=== PATIENT | male | born 1960 | race Caucasian/White ===

== ENCOUNTER 2017-07-19 02:38 | Inpatient (IN) | payer MEDICAID ==
[~2017-07-19] VITALS: Ht 190.5 cm; Wt 96.9 kg
[~2017-07-19 02:38] MED LIST: ATEN25TA PO
[2017-07-19] MEDS ORDERED: ondansetron/PF 4mg/2ml inj IV ONE (02:55)
[2017-07-19] MEDS ORDERED: normal saline 1000ML IV soln IVB ONE (02:55)
[2017-07-19] MEDS: diatr meglu/diatrizoate 30ml oral sol.-(3 dose) bottle PO SCH ×3 (03:03→04:39)
[2017-07-19 03:09] LABS: BASOPHILS % (AUTO) 0.7 % (0-1); EOSINOPHILS # (AUTO) 0.3 X10'3 (0-0.9); EOSINOPHILS % (AUTO) 7.1 % (0-6); HEMATOCRIT 26.5 % (42.0-52.0); HEMOGLOBIN 8.8 g/dl (14.0-17.9); LYMPHOCYTES # (AUTO) 0.8 X10'3 (1.1-4.8); LYMPHOCYTES % (AUTO) 17.4 % (21-51); MEAN CORPUSCULAR HEMOGLOBIN 30.7 PG (27.0-31.0); MEAN CORPUSCULAR HGB CONC 33.3 % (33.0-36.5); MEAN CORPUSCULAR VOLUME 92.3 FL (78-98); MEAN PLATELET VOLUME 9.1 FL (7.4-10.4); MONOCYTES # (AUTO) 0.5 X10'3 (0-0.9); MONOCYTES % (AUTO) 11.8 % (2-12); NEUTROPHILS # (AUTO) 2.8 X10'3 (1.8-7.7); PLATELET COUNT 61 X10'3 (140-440); RED BLOOD COUNT 2.87 X10'6 (4.70-6.10); RED CELL DISTRIBUTION WIDTH 21.2 % (11.5-14.5); WHITE BLOOD COUNT 4.4 X10'3 (4.5-11.0)
[2017-07-19 03:20] LABS: CLARITY,URINE CLEAR (Clear); COLOR,URINE YELLOW (Yellow); GLUCOSE, URINE NEGATIVE (Neg); KETONES,URINE NEGATIVE (Neg); LEUKOCYTE ESTERASE ,URINE NEGATIVE (Neg); NITRITES, URINE NEGATIVE (Neg); OCCULT BLOOD,URINE NEGATIVE (Neg); PROTEIN,URINE NEGATIVE (Neg); UROBILINOGEN,URINE 0.2 E.U/dL (0.2-1.0)
[2017-07-19 03:24] LABS: UA COLLECTION TYPE VOIDED
[2017-07-19 03:25] LABS: ALANINE AMINOTRANSFERASE 24 U/L (12-78); ALBUMIN 2.9 G/DL (3.4-5.0); ALBUMIN/GLOBULIN RATIO 0.6 (1.1-1.5); ALKALINE PHOSPHATASE 124 IU/L (46-116); ANION GAP 13 (8-16); ASPARTATE AMINO TRANSFERASE 36 U/L (10-37); BILIRUBIN,TOTAL 1.7 MG/DL (0.1-1.0); BLOOD UREA NITROGEN 40 MG/DL (7-18); BUN/CREATININE RATIO 8.1 (5.4-32.0); CALCIUM 8.8 MG/DL (8.5-10.1); CHLORIDE 107 MMOL/L (99-107); CREATININE 4.96 MG/DL (0.60-1.10); GLUCOSE 107 MG/DL (70-104); LIPASE 1250 U/L (73-393); POTASSIUM 3.8 MMOL/L (3.5-5.1); SODIUM 138 MMOL/L (135-145); eGFR 12 ML/MIN
[2017-07-19 04:43] LABS: HEMOGLOBIN A1C 4.9 % (4.5-6.2)
[2017-07-19] MEDS ORDERED: THIA100T73 PO (05:40)
[2017-07-19] MEDS ORDERED: OMEP40CA37 PO (05:40)
[2017-07-19] MEDS ORDERED: FOLI1TAB16 PO (05:40)
[2017-07-19] MEDS ORDERED: LORA2TAB PO (05:40)
[2017-07-19] MEDS ORDERED: MAGN400T6 PO (05:40)
[2017-07-19] MEDS ORDERED: GABA-532 PO (05:40)
[2017-07-19] MEDS ORDERED: ATEN25TA2 PO (05:40)
[2017-07-19] MEDS ORDERED: PROP20TA6 PO (05:40)
[2017-07-19] MEDS ORDERED: ondansetron/PF 4mg/2ml inj IV PRN (06:05)
[2017-07-19] MEDS ORDERED: mag hydrox/Alum hydrox/simeth 30ml oral suspension PO PRN (06:05)
[2017-07-19] MEDS ORDERED: acetaminophen 325mg tablet PO PRN ×2 (06:05)
[2017-07-19] MEDS ORDERED: magnesium hydroxide 30ml (MOM) UD suspension PO PRN (06:05)
[2017-07-19] MEDS ORDERED: LORazepam 2 mg/ml vial IV ONE (07:15)
[2017-07-19] MEDS ORDERED: LIDOcaine 2% 10ml TOPICAL JELLY (Urojet) MM ONE (07:15)
[2017-07-19] MEDS: normal saline 1000ml 1,000 ML IV SCH ×2 (07:35→20:21)
[2017-07-19] MEDS: multivitamins, therapeutics tablet PO SCH (07:48)
[2017-07-19] MEDS: thiamine 100mg tablet PO SCH (07:49)
[2017-07-19] MEDS: magnesium oxide 400mg tablet PO SCH (07:49)
[2017-07-19] MEDS: folic acid 1mg tablet PO SCH (07:49)
[2017-07-19] MEDS: propranolol 40mg tablet PO SCH ×2 (10:58→13:00)
[2017-07-19 11:15] LABS: OCCULT BLOOD STOOL NEGATIVE (Neg)
[2017-07-19 18:30] VITALS: BP 131/82
[2017-07-19] MEDS: propranolol 10mg tablet PO SCH (20:48)
[2017-07-19 20:52] LABS: BASOPHILS # (AUTO) 0.1 X10'3 (0-0.2); EOSINOPHILS # (AUTO) 0.6 X10'3 (0-0.9); EOSINOPHILS % (AUTO) 9.2 % (0-6); HEMATOCRIT 31.8 % (42.0-52.0); HEMOGLOBIN 10.8 g/dl (14.0-17.9); LYMPHOCYTES # (AUTO) 0.7 X10'3 (1.1-4.8); LYMPHOCYTES % (AUTO) 10.5 % (21-51); MEAN CORPUSCULAR HGB CONC 33.8 % (33.0-36.5); MEAN CORPUSCULAR VOLUME 91.8 FL (78-98); MEAN PLATELET VOLUME 9.4 FL (7.4-10.4); MONOCYTES # (AUTO) 0.8 X10'3 (0-0.9); MONOCYTES % (AUTO) 12.6 % (2-12); NEUTROPHILS # (AUTO) 4.2 X10'3 (1.8-7.7); NEUTROPHILS % (AUTO) 65.7 % (42-75); PLATELET COUNT 87 X10'3 (140-440); RED BLOOD COUNT 3.47 X10'6 (4.70-6.10); RED CELL DISTRIBUTION WIDTH 21.1 % (11.5-14.5); WHITE BLOOD COUNT 6.4 X10'3 (4.5-11.0)
[2017-07-19 21:02] LABS: INR 1.2 INR; PROTHROMBIN TIME 12.6 SECONDS (9.0-12.0)
[2017-07-19 21:06] LABS: ALANINE AMINOTRANSFERASE 18 U/L (12-78); ALBUMIN 2.8 G/DL (3.4-5.0); ALBUMIN/GLOBULIN RATIO 0.6 (1.1-1.5); ALKALINE PHOSPHATASE 121 IU/L (46-116); ANION GAP 11 (8-16); ASPARTATE AMINO TRANSFERASE 33 U/L (10-37); BILIRUBIN,TOTAL 2.2 MG/DL (0.1-1.0); BLOOD UREA NITROGEN 39 MG/DL (7-18); BUN/CREATININE RATIO 8.7 (5.4-32.0); CALCIUM 8.9 MG/DL (8.5-10.1); CHLORIDE 108 MMOL/L (99-107); CREATININE 4.47 MG/DL (0.60-1.10); GLUCOSE 137 MG/DL (70-104); POTASSIUM 3.8 MMOL/L (3.5-5.1); SODIUM 139 MMOL/L (135-145); TOTAL CARBON DIOXIDE 20.1 MMOL/L (24-32); TOTAL PROTEIN 7.8 G/DL (6.4-8.2); eGFR 14 ML/MIN
[2017-07-19] MEDS: LORazepam 1 MG tablet PO PRN (22:21)
[2017-07-19 22:25] VITALS: BP 114/70
[2017-07-20 05:18] LABS: BASOPHILS # (AUTO) 0.1 X10'3 (0-0.2); BASOPHILS % (AUTO) 1.1 % (0-1); EOSINOPHILS # (AUTO) 0.4 X10'3 (0-0.9); EOSINOPHILS % (AUTO) 7.6 % (0-6); HEMATOCRIT 28.1 % (42.0-52.0); HEMOGLOBIN 9.4 g/dl (14.0-17.9); LYMPHOCYTES # (AUTO) 0.8 X10'3 (1.1-4.8); MEAN CORPUSCULAR HEMOGLOBIN 30.9 PG (27.0-31.0); MEAN CORPUSCULAR HGB CONC 33.6 % (33.0-36.5); MEAN CORPUSCULAR VOLUME 91.9 FL (78-98); MEAN PLATELET VOLUME 9.1 FL (7.4-10.4); MONOCYTES # (AUTO) 0.7 X10'3 (0-0.9); MONOCYTES % (AUTO) 13.1 % (2-12); NEUTROPHILS # (AUTO) 3.6 X10'3 (1.8-7.7); NEUTROPHILS % (AUTO) 64.2 % (42-75); PLATELET COUNT 69 X10'3 (140-440); RED BLOOD COUNT 3.06 X10'6 (4.70-6.10); RED CELL DISTRIBUTION WIDTH 21.2 % (11.5-14.5); WHITE BLOOD COUNT 5.6 X10'3 (4.5-11.0)
[2017-07-20 06:00] LABS: ALBUMIN 2.3 G/DL (3.4-5.0); ANION GAP 10 (8-16); BLOOD UREA NITROGEN 38 MG/DL (7-18); BUN/CREATININE RATIO 8.9 (5.4-32.0); CALCIUM 7.9 MG/DL (8.5-10.1); CHLORIDE 110 MMOL/L (99-107); CREATININE 4.26 MG/DL (0.60-1.10); GLUCOSE 113 MG/DL (70-104); LIPASE 713 U/L (73-393); POTASSIUM 4.1 MMOL/L (3.5-5.1); SODIUM 140 MMOL/L (135-145); TOTAL CARBON DIOXIDE 19.7 MMOL/L (24-32); eGFR 14 ML/MIN
[2017-07-20 07:26] VITALS: BP 137/74
[2017-07-20] MEDS: multivitamins, therapeutics tablet PO SCH (07:58)
[2017-07-20] MEDS: propranolol 10mg tablet PO SCH ×3 (07:58→20:35)
[2017-07-20] MEDS: magnesium oxide 400mg tablet PO SCH (07:58)
[2017-07-20] MEDS: thiamine 100mg tablet PO SCH (07:58)
[2017-07-20] MEDS: folic acid 1mg tablet PO SCH (07:59)
[2017-07-20] MEDS: normal saline 1000ml 1,000 ML IV SCH ×4 (09:15→21:43)
[2017-07-20 11:30] VITALS: BP 125/56
[2017-07-20 16:12] LABS: BASOPHILS % (AUTO) 0.9 % (0-1); EOSINOPHILS # (AUTO) 0.4 X10'3 (0-0.9); EOSINOPHILS % (AUTO) 7.5 % (0-6); HEMOGLOBIN 9.5 g/dl (14.0-17.9); LYMPHOCYTES # (AUTO) 0.8 X10'3 (1.1-4.8); LYMPHOCYTES % (AUTO) 15.4 % (21-51); MEAN CORPUSCULAR HEMOGLOBIN 30.8 PG (27.0-31.0); MEAN CORPUSCULAR HGB CONC 33.9 % (33.0-36.5); MEAN PLATELET VOLUME 9.6 FL (7.4-10.4); MONOCYTES # (AUTO) 0.9 X10'3 (0-0.9); MONOCYTES % (AUTO) 17.5 % (2-12); NEUTROPHILS # (AUTO) 3.1 X10'3 (1.8-7.7); NEUTROPHILS % (AUTO) 58.7 % (42-75); PLATELET COUNT 63 X10'3 (140-440); RED BLOOD COUNT 3.08 X10'6 (4.70-6.10); RED CELL DISTRIBUTION WIDTH 20.2 % (11.5-14.5); WHITE BLOOD COUNT 5.3 X10'3 (4.5-11.0)
[2017-07-20 16:37] LABS: ALANINE AMINOTRANSFERASE 16 U/L (12-78); ALBUMIN 2.3 G/DL (3.4-5.0); ALBUMIN/GLOBULIN RATIO 0.5 (1.1-1.5); ALKALINE PHOSPHATASE 105 IU/L (46-116); ANION GAP 12 (8-16); ASPARTATE AMINO TRANSFERASE 28 U/L (10-37); BILIRUBIN,TOTAL 1.3 MG/DL (0.1-1.0); BLOOD UREA NITROGEN 36 MG/DL (7-18); BUN/CREATININE RATIO 9.1 (5.4-32.0); CALCIUM 7.7 MG/DL (8.5-10.1); CHLORIDE 107 MMOL/L (99-107); CREATININE 3.97 MG/DL (0.60-1.10); GLUCOSE 124 MG/DL (70-104); POTASSIUM 3.7 MMOL/L (3.5-5.1); SODIUM 139 MMOL/L (135-145); TOTAL PROTEIN 6.6 G/DL (6.4-8.2); eGFR 16 ML/MIN
[2017-07-20 19:20] VITALS: BP 135/83
[2017-07-20] MEDS: tamsulosin 0.4mg capsule PO SCH (20:34)
[2017-07-20] MEDS: LORazepam 1 MG tablet PO PRN (20:35)
[2017-07-21] VITALS (16 sets, daily range): BP systolic 108–148; BP diastolic 53–95
[2017-07-21] MEDS: normal saline 1000ml 1,000 ML IV SCH ×3 (04:22→19:00)
[2017-07-21 06:19] LABS: BASOPHILS # (AUTO) 0.1 X10'3 (0-0.2); BASOPHILS % (AUTO) 1.2 % (0-1); EOSINOPHILS # (AUTO) 0.6 X10'3 (0-0.9); EOSINOPHILS % (AUTO) 8.6 % (0-6); HEMATOCRIT 26.6 % (42.0-52.0); LYMPHOCYTES # (AUTO) 1.1 X10'3 (1.1-4.8); LYMPHOCYTES % (AUTO) 17.5 % (21-51); MEAN CORPUSCULAR HEMOGLOBIN 30.7 PG (27.0-31.0); MEAN CORPUSCULAR HGB CONC 33.8 % (33.0-36.5); MEAN CORPUSCULAR VOLUME 91.1 FL (78-98); MEAN PLATELET VOLUME 9.8 FL (7.4-10.4); NEUTROPHILS # (AUTO) 3.7 X10'3 (1.8-7.7); NEUTROPHILS % (AUTO) 57.7 % (42-75); PLATELET COUNT 68 X10'3 (140-440); RED BLOOD COUNT 2.92 X10'6 (4.70-6.10); RED CELL DISTRIBUTION WIDTH 21.1 % (11.5-14.5); WHITE BLOOD COUNT 6.4 X10'3 (4.5-11.0)
[2017-07-21 06:21] LABS: ALBUMIN 2.3 G/DL (3.4-5.0); ANION GAP 12 (8-16); BLOOD UREA NITROGEN 34 MG/DL (7-18); BUN/CREATININE RATIO 10.1 (5.4-32.0); CALCIUM 7.4 MG/DL (8.5-10.1); CHLORIDE 110 MMOL/L (99-107); CREATININE 3.37 MG/DL (0.60-1.10); GLUCOSE 117 MG/DL (70-104); POTASSIUM 3.5 MMOL/L (3.5-5.1); SODIUM 140 MMOL/L (135-145); TOTAL CARBON DIOXIDE 17.6 MMOL/L (24-32); eGFR 19 ML/MIN
[2017-07-21] MEDS: propranolol 10mg tablet PO SCH ×3 (08:00→20:29)
[2017-07-21] MEDS: multivitamins, therapeutics tablet PO SCH (08:00)
[2017-07-21] MEDS: folic acid 1mg tablet PO SCH (08:00)
[2017-07-21] MEDS: thiamine 100mg tablet PO SCH (08:00)
[2017-07-21] MEDS: magnesium oxide 400mg tablet PO SCH (08:00)
[2017-07-21] MEDS ORDERED: neomy sulf/bacitrac zn/polymixin b oint 14.2 gm tube TP ONE (09:54)
[2017-07-21] MEDS ORDERED: neomy sulf/polymyxin B sulf. GU irrigation 1ml amp IR ONE (09:56)
[2017-07-21] MEDS ORDERED: levoFLOXACIN-Levaquin 500mg/D5 100 ML IV ONE (10:00)
[2017-07-21] MEDS ORDERED: fentaNYL/PF 50MCG/1 ML 2ML syringe ONE ×2 (10:16→10:39)
[2017-07-21] MEDS ORDERED: neostigmine methylsulfate 1 MG/ML 10ml vial ONE (10:49)
[2017-07-21] MEDS ORDERED: glycopyrrolate 0.2mg/ml inj ONE (10:49)
[2017-07-21] MEDS ORDERED: propofol inj 20 ML IV ONE (10:49)
[2017-07-21] MEDS ORDERED: rocuronium 10mg/ml inj IV ONE (10:49)
[2017-07-21] MEDS ORDERED: dexamethasone sod phosphate 4mg/ml inj. ONE (10:49)
[2017-07-21] MEDS ORDERED: succinylcholine 20mg/ml inj IV ONE (10:49)
[2017-07-21] MEDS ORDERED: ondansetron/PF 4mg/2ml inj ONE (10:49)
[2017-07-21] MEDS ORDERED: LIDOcaine 2% (20mg/ml) 5ml vial ONE (10:49)
[2017-07-21] MEDS ORDERED: ringers solution, lacted 1,000 ML IV SCH (11:06)
[2017-07-21] MEDS ORDERED: meperidine/PF 25mg/ml syringe IV PRN ×3 (11:10)
[2017-07-21] MEDS ORDERED: HYDROcodone/acetaminophen 5mg/325mg tablet PO PRN ×2 (11:10)
[2017-07-21] MEDS ORDERED: proCHLORperazine 10 MG/2 ml inj IV PRN (11:10)
[2017-07-21] MEDS ORDERED: ondansetron/PF 4mg/2ml inj IV PRN (11:10)
[2017-07-21] MEDS ORDERED: oxybutynin 5mg tablet PO PRN (11:10)
[2017-07-21] MEDS: tamsulosin 0.4mg capsule PO SCH (20:29)
[2017-07-21] MEDS: docusate sod 100mg capsule PO SCH (20:29)
[2017-07-22] MEDS: normal saline 1000ml 1,000 ML IV SCH ×3 (01:48→12:07)
[2017-07-22 04:00] VITALS: BP 128/71
[2017-07-22 05:12] LABS: BASOPHILS % (AUTO) 0.2 % (0-1); EOSINOPHILS % (AUTO) 0.5 % (0-6); HEMATOCRIT 24.8 % (42.0-52.0); HEMOGLOBIN 8.3 g/dl (14.0-17.9); LYMPHOCYTES # (AUTO) 0.4 X10'3 (1.1-4.8); MEAN CORPUSCULAR HEMOGLOBIN 30.8 PG (27.0-31.0); MEAN CORPUSCULAR HGB CONC 33.7 % (33.0-36.5); MEAN CORPUSCULAR VOLUME 91.3 FL (78-98); MEAN PLATELET VOLUME 9.8 FL (7.4-10.4); MONOCYTES # (AUTO) 0.4 X10'3 (0-0.9); MONOCYTES % (AUTO) 10.7 % (2-12); NEUTROPHILS # (AUTO) 2.7 X10'3 (1.8-7.7); NEUTROPHILS % (AUTO) 77.6 % (42-75); PLATELET COUNT 52 X10'3 (140-440); RED BLOOD COUNT 2.71 X10'6 (4.70-6.10); RED CELL DISTRIBUTION WIDTH 20.3 % (11.5-14.5); WHITE BLOOD COUNT 3.5 X10'3 (4.5-11.0)
[2017-07-22 05:50] LABS: ALBUMIN 2.2 G/DL (3.4-5.0); ANION GAP 12 (8-16); BLOOD UREA NITROGEN 32 MG/DL (7-18); BUN/CREATININE RATIO 11.2 (5.4-32.0); CALCIUM 7.4 MG/DL (8.5-10.1); CHLORIDE 108 MMOL/L (99-107); CREATININE 2.85 MG/DL (0.60-1.10); GLUCOSE 153 MG/DL (70-104); POTASSIUM 3.7 MMOL/L (3.5-5.1); SODIUM 140 MMOL/L (135-145); TOTAL CARBON DIOXIDE 20.5 MMOL/L (24-32); eGFR 23 ML/MIN
[2017-07-22 07:05] VITALS: BP 118/82
[2017-07-22] MEDS: magnesium oxide 400mg tablet PO SCH (07:11)
[2017-07-22] MEDS: docusate sod 100mg capsule PO SCH (07:11)
[2017-07-22] MEDS: thiamine 100mg tablet PO SCH (07:11)
[2017-07-22] MEDS: propranolol 10mg tablet PO SCH ×2 (07:11→13:00)
[2017-07-22] MEDS: multivitamins, therapeutics tablet PO SCH (07:11)
[2017-07-22] MEDS: folic acid 1mg tablet PO SCH (07:11)
[2017-07-22 11:30] VITALS: BP 128/77
[2017-07-22] MEDS ORDERED: TAMS0.4C32 PO (12:54)
== END 2017-07-22 15:05 | disposition home health service (06) | DRG 482 ==
LOC: ER 02:39 → ED HOLD 06:03 → MED 3N 18:30
PROVIDERS: ADMIT Internal Medicine; ATTEND Emergency Medicine
PROC: 0VB08ZZ Excision of Prostate, Via Natural or Artificial Opening Endoscopic (ICD-10-PCS; 2017-07-21)
PROC: 0TJB8ZZ Inspection of Bladder, Via Natural or Artificial Opening Endoscopic (ICD-10-PCS; principal; 2017-07-21 10:12)
DX: N40.1 Benign prostatic hyperplasia with lower urinary tract symptoms (principal); N17.9 Acute kidney failure, unspecified; D61.818 Other pancytopenia; C22.0 Liver cell carcinoma; K42.1 Umbilical hernia with gangrene; I85.00 Esophageal varices without bleeding; N13.30 Unspecified hydronephrosis; N13.8 Other obstructive and reflux uropathy; N40.0 Benign prostatic hyperplasia without lower urinary tract symptoms; E11.40 Type 2 diabetes mellitus with diabetic neuropathy, unspecified; N32.89 Other specified disorders of bladder; D64.9 Anemia, unspecified; R74.0 Nonspecific elevation of levels of transaminase and lactic acid dehydrogenase [LDH]; F10.10 Alcohol abuse, uncomplicated; Z72.89 Other problems related to lifestyle; Z59.0 Homelessness; K43.9 Ventral hernia without obstruction or gangrene; F02.80 Dementia in other diseases classified elsewhere, unspecified severity, without behavioral disturbance, psychotic disturbance, mood disturbance, and anxiety; F41.9 Anxiety disorder, unspecified; K42.0 Umbilical hernia with obstruction, without gangrene; K70.31 Alcoholic cirrhosis of liver with ascites; K76.6 Portal hypertension; K80.20 Calculus of gallbladder without cholecystitis without obstruction; N35.9 Urethral stricture, unspecified; R32 Unspecified urinary incontinence; Z79.4 Long term (current) use of insulin
CPT/HCPCS: 36415; 74176; 80048; 80053; 81003; 82272; 83036; 83605; 83690; 85025; 85610; 87070; 93005; 96361; 96374; 99285; A4315; A4346; A4402; A6255; A7000; J0330; J1100; J1956; J2001; J2060; J2175; J2270; J2405; J2704; J2710; J3010; J3490; J7030; J7120; Q9963

== ENCOUNTER 2017-08-13 22:41 | Inpatient (IN) | payer MEDICAID ==
[~2017-08-13] VITALS: Ht 190.5 cm; Wt 91.3 kg
[~2017-08-13 22:41] MED LIST changes: -ATEN25TA PO; +FOLI1TAB16 PO; +GABA-532 PO; +LORA2TAB PO; +MAGN400T6 PO; +OMEP40CA37 PO; +PROP20TA6 PO; +TAMS0.4C32 PO; +THIA100T73 PO
[2017-08-13] MEDS ORDERED: tranexamic acid inj. 1,000 MG in normal saline 100ml IV soln 90 ML IV ONE (23:05)
[2017-08-13] MEDS ORDERED: octreotide inj. 1,250 MCG in normal saline 250ml IV soln 250 ML IV ONE (23:10)
[2017-08-13] MEDS ORDERED: phytonadione inj. 5 MG in normal saline 100ml IV soln 100 ML IV ONE (23:10)
[2017-08-13 23:13] LABS: BASOPHILS % (AUTO) 0.3 % (0-1); EOSINOPHILS % (AUTO) 0.7 % (0-6); HEMATOCRIT 21.2 % (42.0-52.0); HEMOGLOBIN 7.4 g/dl (14.0-17.9); LYMPHOCYTES # (AUTO) 0.3 X10'3 (1.1-4.8); LYMPHOCYTES % (AUTO) 4.7 % (21-51); MEAN CORPUSCULAR HEMOGLOBIN 31.3 PG (27.0-31.0); MEAN CORPUSCULAR HGB CONC 34.9 % (33.0-36.5); MEAN CORPUSCULAR VOLUME 89.7 FL (78-98); MEAN PLATELET VOLUME 8.4 FL (7.4-10.4); MONOCYTES # (AUTO) 0.9 X10'3 (0-0.9); NEUTROPHILS # (AUTO) 4.5 X10'3 (1.8-7.7); NEUTROPHILS % (AUTO) 78.3 % (42-75); RED BLOOD COUNT 2.36 X10'6 (4.70-6.10); RED CELL DISTRIBUTION WIDTH 15.3 % (11.5-14.5); WHITE BLOOD COUNT 5.7 X10'3 (4.5-11.0)
[2017-08-13 23:21] LABS: INR 1.3 INR; PARTIAL THROMBOPLASTIN TIME 34 SECONDS (22-32)
[2017-08-13 23:24] LABS: PLATELET COUNT 27 X10'3 (140-440)
[2017-08-13 23:25] LABS: ALANINE AMINOTRANSFERASE 17 U/L (12-78); ALBUMIN 2.1 G/DL (3.4-5.0); ALBUMIN/GLOBULIN RATIO 0.4 (1.1-1.5); ALKALINE PHOSPHATASE 162 IU/L (46-116); ANION GAP 9 (8-16); ASPARTATE AMINO TRANSFERASE 36 U/L (10-37); BILIRUBIN,TOTAL 3.3 MG/DL (0.1-1.0); BLOOD UREA NITROGEN 25 MG/DL (7-18); BUN/CREATININE RATIO 13.9 (5.4-32.0); CALCIUM 7.9 MG/DL (8.5-10.1); CHLORIDE 98 MMOL/L (99-107); ETHANOL 0.073 GM/DL (0.0-0.010); GLUCOSE 131 MG/DL (70-104); LIPASE 231 U/L (73-393); MAGNESIUM 1.3 MG/DL (1.5-2.4); POTASSIUM 5.4 MMOL/L (3.5-5.1); SODIUM 128 MMOL/L (135-145); TOTAL CARBON DIOXIDE 21.1 MMOL/L (24-32); TOTAL PROTEIN 7.1 G/DL (6.4-8.2); eGFR 39 ML/MIN
[2017-08-13 23:30] LABS: LACTIC SEPSIS 2.3 MMOL/L (0.4-2.0)
[2017-08-13] MEDS ORDERED: octreotide 100mcg/1 ml ampule IV ONE (23:45)
[2017-08-14] VITALS (26 sets, daily range): BP systolic 117–158; BP diastolic 61–90
[2017-08-14] MEDS ORDERED: metoclopramide 5 mg/ml inj IV PRN (00:05)
[2017-08-14] MEDS ORDERED: diphenhydrAMINE 25mg capsule PO PRN (00:05)
[2017-08-14] MEDS ORDERED: HYDROmorphone 1 mg/ml syringe IV PRN ×2 (00:05)
[2017-08-14] MEDS ORDERED: magnesium hydroxide 30ml (MOM) UD suspension PO PRN (00:05)
[2017-08-14] MEDS ORDERED: mag hydrox/Alum hydrox/simeth 30ml oral suspension PO PRN (00:05)
[2017-08-14] MEDS ORDERED: diphenhydrAMINE 50 mg/ml inj IV PRN (00:05)
[2017-08-14] MEDS ORDERED: acetaminophen 325mg tablet PO PRN ×2 (00:05)
[2017-08-14] MEDS ORDERED: HYDROcodone/acetaminophen 5mg/325mg tablet PO PRN (00:05)
[2017-08-14] MEDS ORDERED: ondansetron/PF 4mg/2ml inj IV PRN (00:05)
[2017-08-14] MEDS ORDERED: morphine 2 MG/ML inj. syringe IV PRN ×2 (00:05)
[2017-08-14] MEDS ORDERED: bisacodyl 10mg suppository rectal RC PRN (00:05)
[2017-08-14] MEDS ORDERED: acetaminophen 650mg rectal suppository RC PRN (00:05)
[2017-08-14] MEDS ORDERED: HYDROcodone/acetaminophen 10/325mg tab PO PRN (00:05)
[2017-08-14] MEDS ORDERED: tranexamic acid 100mg/ml inj. ONE (00:19)
[2017-08-14] MEDS ORDERED: octreotide 200mcg/ml 5ml vial ONE (00:19)
[2017-08-14] MEDS ORDERED: phytonadione 10 MG/1 ML amp ONE (00:20)
[2017-08-14] MEDS ORDERED: LORazepam 1 MG tablet PO PRN (00:20)
[2017-08-14 00:46] LABS: PHOSPHORUS 2.3 MG/DL (2.3-4.5)
[2017-08-14] MEDS: pantoprazole 40MG/NS 100ML BAG 100 ML IV SCH ×5 (02:08→22:12)
[2017-08-14] MEDS: normal saline 1000ml 1,000 ML IV SCH (02:11)
[2017-08-14 02:54] LABS: HEMOGLOBIN 7.1 g/dl (14.0-17.9); MEAN CORPUSCULAR HEMOGLOBIN 31.8 PG (27.0-31.0); MEAN CORPUSCULAR HGB CONC 35.4 % (33.0-36.5); MEAN CORPUSCULAR VOLUME 89.9 FL (78-98); MEAN PLATELET VOLUME 8.9 FL (7.4-10.4); RED BLOOD COUNT 2.23 X10'6 (4.70-6.10); RED CELL DISTRIBUTION WIDTH 15.3 % (11.5-14.5); WHITE BLOOD COUNT 4.9 X10'3 (4.5-11.0)
[2017-08-14 03:12] LABS: PLATELET COUNT 21 X10'3 (140-440)
[2017-08-14] MEDS ORDERED: sodium polystyrene sulfonate 15gm/60ml oral suspension PO ONE (09:40)
[2017-08-14] MEDS ORDERED: diphenhydrAMINE 25mg capsule PO ONE (10:05)
[2017-08-14] MEDS ORDERED: normal saline 1000ml 1,000 ML IV SCH (11:29)
[2017-08-14] MEDS ORDERED: MIDAZolam 1mg/ml 10ml vial IV PRN (11:30)
[2017-08-14] MEDS ORDERED: fentaNYL/PF 50MCG/1 ML 2ML syringe IV PRN (11:30)
[2017-08-14] MEDS ORDERED: LIDOcaine Viscous 15ml cup ONE (12:05)
[2017-08-14] MEDS ORDERED: fentaNYL/PF 50MCG/1 ML 2ML syringe ONE (12:05)
[2017-08-14] MEDS ORDERED: MIDAZolam 1mg/ml 10ml vial ONE (12:05)
[2017-08-14] MEDS ORDERED: ondansetron/PF 4mg/2ml inj ONE (12:11)
[2017-08-14] MEDS: propranolol 40mg tablet PO SCH ×3 (13:00→22:09)
[2017-08-14] MEDS: gabapentin 300mg capsule PO SCH ×3 (13:00→22:10)
[2017-08-14] MEDS: CefTRIAXone/D5W-Rocephin 1gm 50 ML IV SCH (13:58)
[2017-08-14] MEDS ORDERED: thiamine inj. 100 MG, magnesium sulf injection 2 GM, MVI, adult No.4 with vit. K 10 ML ... IV SCH ×4 (14:00)
[2017-08-14 14:42] LABS: POTASSIUM 4.9 MMOL/L (3.5-5.1)
[2017-08-14] MEDS: lactulose 20gm/30ml cup PO SCH ×2 (15:33→22:10)
[2017-08-14 15:52] LABS: CLARITY,URINE CLEAR (Clear); COLOR,URINE YELLOW (Yellow); GLUCOSE, URINE NEGATIVE (Neg); KETONES,URINE NEGATIVE (Neg); LEUKOCYTE ESTERASE ,URINE LARGE (Neg); NITRITES, URINE NEGATIVE (Neg); OCCULT BLOOD,URINE LARGE (Neg); PROTEIN,URINE NEGATIVE (Neg)
[2017-08-14 15:53] LABS: UA COLLECTION TYPE FOLEY CATH
[2017-08-14 16:02] LABS: BACTERIA,URINE 1+ /HPF (Neg); SQUAMOUS EPITHELIAL CELL,UR NONE SEEN /LPF (FEW); WBC,URINE TNTC /HPF (0-4)
[2017-08-14] MEDS: metroNIDAZOLE-Flagyl 500mg/NS 100 ML IV SCH (17:06)
[2017-08-14 18:42] LABS: BASOPHILS % (AUTO) 0.9 % (0-1); EOSINOPHILS % (AUTO) 0.9 % (0-6); LYMPHOCYTES # (AUTO) 0.4 X10'3 (1.1-4.8); LYMPHOCYTES % (AUTO) 7.9 % (21-51); MEAN CORPUSCULAR HEMOGLOBIN 31.7 PG (27.0-31.0); MEAN CORPUSCULAR HGB CONC 35.4 % (33.0-36.5); MEAN CORPUSCULAR VOLUME 89.5 FL (78-98); MONOCYTES # (AUTO) 0.8 X10'3 (0-0.9); MONOCYTES % (AUTO) 16.5 % (2-12); NEUTROPHILS # (AUTO) 3.4 X10'3 (1.8-7.7); NEUTROPHILS % (AUTO) 73.8 % (42-75); RED BLOOD COUNT 2.19 X10'6 (4.70-6.10); RED CELL DISTRIBUTION WIDTH 15.5 % (11.5-14.5); WHITE BLOOD COUNT 4.6 X10'3 (4.5-11.0)
[2017-08-14 18:55] LABS: MAGNESIUM 1.4 MG/DL (1.5-2.4)
[2017-08-14 19:16] LABS: PLATELET COUNT 44 X10'3 (140-440)
[2017-08-14 19:17] LABS: HEMATOCRIT 19.6 % (42.0-52.0); HEMOGLOBIN 6.9 g/dl (14.0-17.9)
[2017-08-14] MEDS ORDERED: temazepam 15mg capsule PO PRN (21:00)
[2017-08-14] MEDS: tamsulosin 0.4mg capsule PO SCH (22:10)
[2017-08-15] VITALS (8 sets, daily range): BP systolic 106–138; BP diastolic 57–77
[2017-08-15] MEDS: pantoprazole 40MG/NS 100ML BAG 100 ML IV SCH ×5 (01:00→21:13)
[2017-08-15] MEDS: metroNIDAZOLE-Flagyl 500mg/NS 100 ML IV SCH ×3 (01:32→16:12)
[2017-08-15] MEDS: lactulose 20gm/30ml cup PO SCH ×3 (01:42→14:56)
[2017-08-15] MEDS ORDERED: vancomycin/NS 1 GM ADD-VANTAGE 250 ML IV ONE (02:00)
[2017-08-15 06:14] LABS: BASOPHILS % (AUTO) 0.5 % (0-1); EOSINOPHILS % (AUTO) 0.3 % (0-6); HEMATOCRIT 22.2 % (42.0-52.0); HEMOGLOBIN 7.6 g/dl (14.0-17.9); LYMPHOCYTES # (AUTO) 0.4 X10'3 (1.1-4.8); LYMPHOCYTES % (AUTO) 9.1 % (21-51); MEAN CORPUSCULAR HEMOGLOBIN 30.8 PG (27.0-31.0); MEAN CORPUSCULAR HGB CONC 34.3 % (33.0-36.5); MEAN CORPUSCULAR VOLUME 89.9 FL (78-98); MEAN PLATELET VOLUME 8.6 FL (7.4-10.4); MONOCYTES # (AUTO) 0.6 X10'3 (0-0.9); MONOCYTES % (AUTO) 14.9 % (2-12); NEUTROPHILS # (AUTO) 3.2 X10'3 (1.8-7.7); NEUTROPHILS % (AUTO) 75.2 % (42-75); RED BLOOD COUNT 2.47 X10'6 (4.70-6.10); RED CELL DISTRIBUTION WIDTH 16.4 % (11.5-14.5); WHITE BLOOD COUNT 4.3 X10'3 (4.5-11.0)
[2017-08-15 06:33] LABS: PLATELET COUNT 37 X10'3 (140-440)
[2017-08-15 06:35] LABS: ALANINE AMINOTRANSFERASE 18 U/L (12-78); ALBUMIN 2.1 G/DL (3.4-5.0); ALKALINE PHOSPHATASE 119 IU/L (46-116); ASPARTATE AMINO TRANSFERASE 22 U/L (10-37); BILIRUBIN,TOTAL 4.4 MG/DL (0.1-1.0); BLOOD UREA NITROGEN 36 MG/DL (7-18); BUN/CREATININE RATIO 15.7 (5.4-32.0); CALCIUM 8.1 MG/DL (8.5-10.1); GLUCOSE 139 MG/DL (70-104); TOTAL CARBON DIOXIDE 23.6 MMOL/L (24-32); eGFR 29 ML/MIN
[2017-08-15 07:19] LABS: ANION GAP 8 (8-16); CHLORIDE 105 MMOL/L (99-107); POTASSIUM 4.1 MMOL/L (3.5-5.1); SODIUM 137 MMOL/L (135-145)
[2017-08-15 07:57] LABS: ALBUMIN/GLOBULIN RATIO 0.5 (1.1-1.5); TOTAL PROTEIN 6.6 G/DL (6.4-8.2)
[2017-08-15] MEDS: CefTRIAXone/D5W-Rocephin 1gm 50 ML IV SCH (08:58)
[2017-08-15] MEDS: thiamine 100mg tablet PO SCH (09:12)
[2017-08-15] MEDS: propranolol 40mg tablet PO SCH ×3 (09:12→21:12)
[2017-08-15] MEDS: multivitamins, therapeutics tablet PO SCH (09:12)
[2017-08-15] MEDS: folic acid 1mg tablet PO SCH (09:12)
[2017-08-15] MEDS: gabapentin 300mg capsule PO SCH ×3 (09:12→21:12)
[2017-08-15 14:51] LABS: HEMATOCRIT 22.6 % (42.0-52.0); HEMOGLOBIN 7.8 g/dl (14.0-17.9); MEAN CORPUSCULAR HEMOGLOBIN 31.1 PG (27.0-31.0); MEAN CORPUSCULAR HGB CONC 34.6 % (33.0-36.5); MEAN CORPUSCULAR VOLUME 89.8 FL (78-98); MEAN PLATELET VOLUME 7.9 FL (7.4-10.4); RED BLOOD COUNT 2.52 X10'6 (4.70-6.10); RED CELL DISTRIBUTION WIDTH 16.6 % (11.5-14.5); WHITE BLOOD COUNT 4.1 X10'3 (4.5-11.0)
[2017-08-15 15:18] LABS: PLATELET COUNT 38 X10'3 (140-440)
[2017-08-15] MEDS: vancomycin inj 1,250 MG in normal saline 250ml IV soln 250 ML IV SCH (16:18)
[2017-08-15] MEDS: tamsulosin 0.4mg capsule PO SCH (21:12)
[2017-08-15] MEDS: normal saline 1000ml 1,000 ML IV SCH (23:18)
[2017-08-16] VITALS (14 sets, daily range): BP systolic 114–142; BP diastolic 60–77
[2017-08-16] MEDS: metroNIDAZOLE-Flagyl 500mg/NS 100 ML IV SCH ×2 (00:20→10:38)
[2017-08-16] MEDS: vancomycin inj 1,250 MG in normal saline 250ml IV soln 250 ML IV SCH ×2 (02:30→14:32)
[2017-08-16] MEDS: pantoprazole 40MG/NS 100ML BAG 100 ML IV SCH ×5 (02:33→21:09)
[2017-08-16 06:06] LABS: HEMOGLOBIN 7.5 g/dl (14.0-17.9); MEAN CORPUSCULAR HEMOGLOBIN 31.3 PG (27.0-31.0); MEAN CORPUSCULAR HGB CONC 34.8 % (33.0-36.5); MEAN CORPUSCULAR VOLUME 89.9 FL (78-98); MEAN PLATELET VOLUME 8.3 FL (7.4-10.4); RED BLOOD COUNT 2.39 X10'6 (4.70-6.10); RED CELL DISTRIBUTION WIDTH 16.5 % (11.5-14.5); WHITE BLOOD COUNT 2.9 X10'3 (4.5-11.0)
[2017-08-16 07:02] LABS: HEMATOCRIT 21.5 % (42.0-52.0); PLATELET COUNT 33 X10'3 (140-440)
[2017-08-16 07:14] LABS: ALANINE AMINOTRANSFERASE 10 U/L (12-78); ALBUMIN 1.9 G/DL (3.4-5.0); ALBUMIN/GLOBULIN RATIO 0.4 (1.1-1.5); ALKALINE PHOSPHATASE 110 IU/L (46-116); ANION GAP 10 (8-16); ASPARTATE AMINO TRANSFERASE 21 U/L (10-37); BILIRUBIN,TOTAL 2.3 MG/DL (0.1-1.0); BLOOD UREA NITROGEN 32 MG/DL (7-18); BUN/CREATININE RATIO 14.5 (5.4-32.0); CALCIUM 8.1 MG/DL (8.5-10.1); CHLORIDE 105 MMOL/L (99-107); GLUCOSE 129 MG/DL (70-104); POTASSIUM 3.7 MMOL/L (3.5-5.1); SODIUM 137 MMOL/L (135-145); TOTAL CARBON DIOXIDE 22.2 MMOL/L (24-32); TOTAL PROTEIN 6.4 G/DL (6.4-8.2); eGFR 31 ML/MIN
[2017-08-16 07:44] LABS: ANISOCYTOSIS 1+; PLATELET ESTIMATE DECREASED; TOTAL CELLS COUNTED 100
[2017-08-16] MEDS: CefTRIAXone/D5W-Rocephin 1gm 50 ML IV SCH (08:08)
[2017-08-16] MEDS: folic acid 1mg tablet PO SCH (08:15)
[2017-08-16] MEDS: multivitamins, therapeutics tablet PO SCH (08:15)
[2017-08-16] MEDS: propranolol 40mg tablet PO SCH ×3 (08:15→21:09)
[2017-08-16] MEDS: lactulose 20gm/30ml cup PO SCH ×2 (08:15→21:12)
[2017-08-16] MEDS: gabapentin 300mg capsule PO SCH ×3 (08:15→21:09)
[2017-08-16] MEDS: thiamine 100mg tablet PO SCH (08:16)
[2017-08-16 16:17] LABS: HEMOGLOBIN 7.2 g/dl (14.0-17.9); MEAN CORPUSCULAR HEMOGLOBIN 31.1 PG (27.0-31.0); MEAN CORPUSCULAR HGB CONC 34.1 % (33.0-36.5); MEAN CORPUSCULAR VOLUME 91.3 FL (78-98); MEAN PLATELET VOLUME 8.2 FL (7.4-10.4); RED BLOOD COUNT 2.31 X10'6 (4.70-6.10); RED CELL DISTRIBUTION WIDTH 16.8 % (11.5-14.5); WHITE BLOOD COUNT 3.6 X10'3 (4.5-11.0)
[2017-08-16 16:23] LABS: HEMATOCRIT 21.1 % (42.0-52.0)
[2017-08-16 16:24] LABS: PLATELET COUNT 37 X10'3 (140-440)
[2017-08-16] MEDS ORDERED: lactobacillus rhamnosus 10,000 MMU CELLS/CAPSULE PO SCH (17:30)
[2017-08-16] MEDS: tamsulosin 0.4mg capsule PO SCH (21:09)
[2017-08-17] VITALS (8 sets, daily range): BP systolic 91–136; BP diastolic 51–77
[2017-08-17] MEDS: pantoprazole 40MG/NS 100ML BAG 100 ML IV SCH ×2 (01:52→06:56)
[2017-08-17] MEDS ORDERED: VANCOMYCIN LEVEL IV NR (02:30)
[2017-08-17 03:07] LABS: EOSINOPHILS # (AUTO) 0.1 X10'3 (0-0.9); EOSINOPHILS % (AUTO) 3.6 % (0-6); HEMATOCRIT 26.3 % (42.0-52.0); HEMOGLOBIN 9.1 g/dl (14.0-17.9); LYMPHOCYTES # (AUTO) 0.5 X10'3 (1.1-4.8); LYMPHOCYTES % (AUTO) 15.3 % (21-51); MEAN CORPUSCULAR HEMOGLOBIN 31.2 PG (27.0-31.0); MEAN CORPUSCULAR HGB CONC 34.6 % (33.0-36.5); MEAN CORPUSCULAR VOLUME 90.2 FL (78-98); MEAN PLATELET VOLUME 8.6 FL (7.4-10.4); MONOCYTES # (AUTO) 0.6 X10'3 (0-0.9); MONOCYTES % (AUTO) 18.7 % (2-12); NEUTROPHILS # (AUTO) 1.9 X10'3 (1.8-7.7); NEUTROPHILS % (AUTO) 61.4 % (42-75); RED BLOOD COUNT 2.91 X10'6 (4.70-6.10); RED CELL DISTRIBUTION WIDTH 16.2 % (11.5-14.5); WHITE BLOOD COUNT 3.1 X10'3 (4.5-11.0)
[2017-08-17 03:17] LABS: PLATELET COUNT 32 X10'3 (140-440)
[2017-08-17 03:24] LABS: ALANINE AMINOTRANSFERASE 16 U/L (12-78); ALBUMIN/GLOBULIN RATIO 0.4 (1.1-1.5); ALKALINE PHOSPHATASE 107 IU/L (46-116); ANION GAP 11 (8-16); ASPARTATE AMINO TRANSFERASE 21 U/L (10-37); BILIRUBIN,TOTAL 3.2 MG/DL (0.1-1.0); BLOOD UREA NITROGEN 33 MG/DL (7-18); BUN/CREATININE RATIO 13.8 (5.4-32.0); CALCIUM 7.8 MG/DL (8.5-10.1); CHLORIDE 106 MMOL/L (99-107); GLUCOSE 122 MG/DL (70-104); POTASSIUM 3.6 MMOL/L (3.5-5.1); SODIUM 137 MMOL/L (135-145); TOTAL CARBON DIOXIDE 19.9 MMOL/L (24-32); TOTAL PROTEIN 6.5 G/DL (6.4-8.2); eGFR 28 ML/MIN
[2017-08-17 03:30] LABS: VANCOMYCIN,TROUGH 29.9 UG/ML (6.0-14.0)
[2017-08-17] MEDS: vancomycin inj 1,250 MG in normal saline 250ml IV soln 250 ML IV SCH (03:32)
[2017-08-17 07:23] LABS: MAGNESIUM 1.2 MG/DL (1.5-2.4)
[2017-08-17] MEDS: propranolol 40mg tablet PO SCH ×3 (08:59→20:28)
[2017-08-17] MEDS: folic acid 1mg tablet PO SCH (08:59)
[2017-08-17] MEDS: multivitamins, therapeutics tablet PO SCH (08:59)
[2017-08-17] MEDS: lactulose 20gm/30ml cup PO SCH ×2 (08:59→20:27)
[2017-08-17] MEDS: gabapentin 300mg capsule PO SCH ×3 (08:59→20:27)
[2017-08-17] MEDS: thiamine 100mg tablet PO SCH (08:59)
[2017-08-17] MEDS ORDERED: potassium Cl 20 mEq SR tablet PO PRN ×2 (09:35)
[2017-08-17] MEDS ORDERED: magnesium 4gm in 100ml NS 100 ML IV PRN (09:35)
[2017-08-17] MEDS ORDERED: magnesium 2GM in 50ml NS 50 ML IV PRN (09:35)
[2017-08-17] MEDS ORDERED: potassium Cl 40MEQ/NS 500ml 500 ML IV PRN ×2 (09:35)
[2017-08-17] MEDS ORDERED: LORazepam 1 MG tablet PO PRN (11:20)
[2017-08-17] MEDS ORDERED: LORazepam 0.5 MG tablet PO PRN (11:43)
[2017-08-17 12:24] LABS: CLARITY,URINE Clear (Clear); GLUCOSE, URINE Negative (Neg); KETONES,URINE Negative (Neg); LEUKOCYTE ESTERASE ,URINE Moderate (Neg); NITRITES, URINE Negative (Neg); OCCULT BLOOD,URINE Moderate (Neg); PH,URINE 5.5 (4.8-8.0); PROTEIN,URINE Negative (Neg); UROBILINOGEN,URINE 0.2 E.U/dL (0.2-1.0)
[2017-08-17 12:26] LABS: COLOR,URINE STRAW (Yellow); UA COLLECTION TYPE FOLEY CATH
[2017-08-17 12:36] LABS: BACTERIA,URINE FEW /HPF (Neg); MUCUS STRANDS FEW /LPF (Neg); SQUAMOUS EPITHELIAL CELL,UR NONE SEEN /LPF (FEW); TRANSITIONAL EPI CELLS,URINE FEW /HPF; WBC CLUMPS,URINE FEW /HPF (NEGATIVE)
[2017-08-17] MEDS: magnesium Cl slow-release 64mg tablet PO PRN (13:40)
[2017-08-17] MEDS: ampicillin inj 1 GM in normal saline 100ml IV soln 100 ML IV SCH ×2 (15:35→20:33)
[2017-08-17] MEDS: pantoprazole 40mg Tablet.DR PO SCH (18:53)
[2017-08-17] MEDS: lactobacillus rhamnosus 10,000 MMU CELLS/CAPSULE PO SCH (18:54)
[2017-08-17] MEDS: tamsulosin 0.4mg capsule PO SCH (20:27)
[2017-08-17] MEDS: normal saline 1000ml 1,000 ML IV SCH (23:51)
[2017-08-18] VITALS (9 sets, daily range): BP systolic 83–121; BP diastolic 50–78
[2017-08-18] MEDS: ampicillin inj 1 GM in normal saline 100ml IV soln 100 ML IV SCH ×4 (02:27→20:28)
[2017-08-18] MEDS: magnesium Cl slow-release 64mg tablet PO PRN ×3 (02:27→20:27)
[2017-08-18 06:16] LABS: HEMATOCRIT 24.8 % (42.0-52.0); HEMOGLOBIN 8.7 g/dl (14.0-17.9); MEAN CORPUSCULAR HEMOGLOBIN 31.6 PG (27.0-31.0); MEAN CORPUSCULAR VOLUME 90.1 FL (78-98); MEAN PLATELET VOLUME 8.7 FL (7.4-10.4); RED BLOOD COUNT 2.75 X10'6 (4.70-6.10); WHITE BLOOD COUNT 3.4 X10'3 (4.5-11.0)
[2017-08-18 06:44] LABS: PLATELET COUNT 34 X10'3 (140-440)
[2017-08-18 07:33] LABS: ALANINE AMINOTRANSFERASE 15 U/L (12-78); ALBUMIN/GLOBULIN RATIO 0.5 (1.1-1.5); ALKALINE PHOSPHATASE 99 IU/L (46-116); ANION GAP 10 (8-16); ASPARTATE AMINO TRANSFERASE 24 U/L (10-37); BILIRUBIN,TOTAL 1.7 MG/DL (0.1-1.0); BLOOD UREA NITROGEN 28 MG/DL (7-18); BUN/CREATININE RATIO 12.7 (5.4-32.0); CALCIUM 7.8 MG/DL (8.5-10.1); CHLORIDE 107 MMOL/L (99-107); GLUCOSE 99 MG/DL (70-104); MAGNESIUM 1.2 MG/DL (1.5-2.4); POTASSIUM 3.7 MMOL/L (3.5-5.1); SODIUM 138 MMOL/L (135-145); TOTAL CARBON DIOXIDE 20.9 MMOL/L (24-32); TOTAL PROTEIN 6.3 G/DL (6.4-8.2); eGFR 31 ML/MIN
[2017-08-18] MEDS: pantoprazole 40mg Tablet.DR PO SCH ×2 (07:34→17:46)
[2017-08-18] MEDS: lactobacillus rhamnosus 10,000 MMU CELLS/CAPSULE PO SCH ×2 (07:34→17:46)
[2017-08-18] MEDS: lactulose 20gm/30ml cup PO SCH ×2 (07:35→20:27)
[2017-08-18] MEDS: multivitamins, therapeutics tablet PO SCH (07:35)
[2017-08-18] MEDS: propranolol 40mg tablet PO SCH ×3 (07:35→20:27)
[2017-08-18] MEDS: gabapentin 300mg capsule PO SCH ×3 (07:35→20:26)
[2017-08-18] MEDS: folic acid 1mg tablet PO SCH (07:35)
[2017-08-18] MEDS: thiamine 100mg tablet PO SCH (07:36)
[2017-08-18 07:40] LABS: TOTAL CELLS COUNTED 100
[2017-08-18 07:41] LABS: ANISOCYTOSIS 1+; BURR CELLS 1+; PLATELET ESTIMATE DECREASED; POLYCHROMASIA FEW; ROULEAUX 1+; TARGET CELLS FEW
[2017-08-18] MEDS: tamsulosin 0.4mg capsule PO SCH (20:26)
[2017-08-19] MEDS: ampicillin inj 1 GM in normal saline 100ml IV soln 100 ML IV SCH ×2 (02:19→07:28)
[2017-08-19 03:00] VITALS: BP 112/67
[2017-08-19 06:00] VITALS: BP 112/67
[2017-08-19] MEDS: propranolol 40mg tablet PO SCH ×2 (07:28→12:43)
[2017-08-19] MEDS: thiamine 100mg tablet PO SCH (07:29)
[2017-08-19] MEDS: folic acid 1mg tablet PO SCH (07:29)
[2017-08-19] MEDS: pantoprazole 40mg Tablet.DR PO SCH (07:30)
[2017-08-19] MEDS: gabapentin 300mg capsule PO SCH ×2 (07:30→12:43)
[2017-08-19] MEDS: multivitamins, therapeutics tablet PO SCH (07:30)
[2017-08-19] MEDS: lactobacillus rhamnosus 10,000 MMU CELLS/CAPSULE PO SCH (07:30)
[2017-08-19] MEDS: magnesium Cl slow-release 64mg tablet PO PRN (07:31)
[2017-08-19] MEDS: lactulose 20gm/30ml cup PO SCH (07:31)
[2017-08-19 07:38] LABS: BASOPHILS % (AUTO) 0.7 % (0-1); EOSINOPHILS # (AUTO) 0.1 X10'3 (0-0.9); EOSINOPHILS % (AUTO) 4.1 % (0-6); HEMOGLOBIN 8.9 g/dl (14.0-17.9); LYMPHOCYTES # (AUTO) 0.4 X10'3 (1.1-4.8); MEAN CORPUSCULAR HEMOGLOBIN 31.4 PG (27.0-31.0); MEAN CORPUSCULAR HGB CONC 34.4 % (33.0-36.5); MEAN CORPUSCULAR VOLUME 91.3 FL (78-98); MEAN PLATELET VOLUME 8.3 FL (7.4-10.4); MONOCYTES # (AUTO) 0.6 X10'3 (0-0.9); MONOCYTES % (AUTO) 18.9 % (2-12); NEUTROPHILS # (AUTO) 2.1 X10'3 (1.8-7.7); NEUTROPHILS % (AUTO) 63.3 % (42-75); RED BLOOD COUNT 2.85 X10'6 (4.70-6.10); RED CELL DISTRIBUTION WIDTH 16.5 % (11.5-14.5); WHITE BLOOD COUNT 3.3 X10'3 (4.5-11.0)
[2017-08-19 07:44] LABS: PLATELET COUNT 42 X10'3 (140-440)
[2017-08-19 08:00] VITALS: BP_SYST 101; BP_SYST 75; BP_SYST 84; BP_DIAS 42; BP_DIAS 54; BP_DIAS 57
[2017-08-19 08:04] LABS: ALANINE AMINOTRANSFERASE 19 U/L (12-78); ALBUMIN/GLOBULIN RATIO 0.4 (1.1-1.5); ALKALINE PHOSPHATASE 104 IU/L (46-116); ANION GAP 9 (8-16); ASPARTATE AMINO TRANSFERASE 31 U/L (10-37); BILIRUBIN,TOTAL 1.4 MG/DL (0.1-1.0); BLOOD UREA NITROGEN 26 MG/DL (7-18); BUN/CREATININE RATIO 11.3 (5.4-32.0); CALCIUM 8.1 MG/DL (8.5-10.1); CHLORIDE 107 MMOL/L (99-107); GLUCOSE 112 MG/DL (70-104); MAGNESIUM 1.4 MG/DL (1.5-2.4); POTASSIUM 3.9 MMOL/L (3.5-5.1); SODIUM 137 MMOL/L (135-145); TOTAL CARBON DIOXIDE 21.5 MMOL/L (24-32); TOTAL PROTEIN 6.5 G/DL (6.4-8.2); eGFR 29 ML/MIN
[2017-08-19 11:00] VITALS: BP 102/61
[2017-08-19] MEDS ORDERED: PANT40TA4 PO (11:38)
[2017-08-19] MEDS ORDERED: AMOX-580 PO (11:38)
== END 2017-08-19 13:55 | disposition home or self-care (01) | DRG 720 ==
LOC: ER 22:42 → ED HOLD 08-14 00:04 → EDBEDREQ 08-14 03:09 → PCU 3S 08-14 08:24
PROVIDERS: ADMIT Family Medicine; ATTEND Internal Medicine
PROC: 0DJ08ZZ Inspection of Upper Intestinal Tract, Via Natural or Artificial Opening Endoscopic (ICD-10-PCS; principal; 2017-08-14)
PROC: 30233R1 Transfusion of Nonautologous Platelets into Peripheral Vein, Percutaneous Approach (ICD-10-PCS; 2017-08-14)
PROC: 30233N1 Transfusion of Nonautologous Red Blood Cells into Peripheral Vein, Percutaneous Approach (ICD-10-PCS; 2017-08-14)
DX: A41.81 Sepsis due to Enterococcus (principal); R57.1 Hypovolemic shock; D61.818 Other pancytopenia; I85.00 Esophageal varices without bleeding; K76.6 Portal hypertension; E87.1 Hypo-osmolality and hyponatremia; K92.2 Gastrointestinal hemorrhage, unspecified; E83.42 Hypomagnesemia; E87.5 Hyperkalemia; D62 Acute posthemorrhagic anemia; F10.10 Alcohol abuse, uncomplicated; K22.70 Barrett's esophagus without dysplasia; B19.20 Unspecified viral hepatitis C without hepatic coma; F32.9 Major depressive disorder, single episode, unspecified; G62.9 Polyneuropathy, unspecified; F17.200 Nicotine dependence, unspecified, uncomplicated; K31.89 Other diseases of stomach and duodenum; K70.30 Alcoholic cirrhosis of liver without ascites; N18.9 Chronic kidney disease, unspecified; N39.0 Urinary tract infection, site not specified; Z79.899 Other long term (current) drug therapy; Z85.6 Personal history of leukemia; Z87.11 Personal history of peptic ulcer disease; Z71.41 Alcohol abuse counseling and surveillance of alcoholic
CPT/HCPCS: 36415; 71045; 80053; 80202; 80320; 81001; 82140; 83605; 83690; 83735; 83880; 84100; 84132; 85025; 85027; 85610; 85730; 86870; 86885; 86900; 86901; 86902; 86905; 86920; 86922; 87040; 87070; 87077; 87088; 87186; 93005; 96374; 99291; A4315; A4620; C9113; G0500; J0290; J0696; J2250; J2354; J2405; J3010; J3370; J3411; J3430; J3475; J3490; J7030; J7060; P9016; P9035; Q0163

== ENCOUNTER 2017-12-10 17:45 | Inpatient (IN) | payer MEDICAID ==
[~2017-12-10] VITALS: Ht 190.5 cm; Wt 92.5 kg
[~2017-12-10 17:45] MED LIST changes: -OMEP40CA37 PO; +PANT40TA4 PO
[2017-12-10 18:53] LABS: BASOPHILS # (AUTO) 0.1 X10'3 (0-0.2); BASOPHILS % (AUTO) 0.8 % (0-1); EOSINOPHILS # (AUTO) 0.4 X10'3 (0-0.9); EOSINOPHILS % (AUTO) 4.7 % (0-6); HEMATOCRIT 28.2 % (42.0-52.0); HEMOGLOBIN 9.6 g/dl (14.0-17.9); LYMPHOCYTES % (AUTO) 11.8 % (21-51); MEAN CORPUSCULAR HEMOGLOBIN 29.3 PG (27.0-31.0); MEAN CORPUSCULAR VOLUME 86.3 FL (78-98); MEAN PLATELET VOLUME 7.4 FL (7.4-10.4); MONOCYTES # (AUTO) 0.7 X10'3 (0-0.9); NEUTROPHILS % (AUTO) 73.7 % (42-75); PLATELET COUNT 152 X10'3 (140-440); RED BLOOD COUNT 3.26 X10'6 (4.70-6.10); RED CELL DISTRIBUTION WIDTH 14.4 % (11.5-14.5); WHITE BLOOD COUNT 8.2 X10'3 (4.5-11.0)
[2017-12-10 19:02] LABS: INR 1.2 INR; PROTHROMBIN TIME 12.1 SECONDS (9.0-12.0)
[2017-12-10 19:07] LABS: CLARITY,URINE CLOUDY (Clear); COLOR,URINE YELLOW (Yellow); GLUCOSE, URINE NEGATIVE (Neg); KETONES,URINE NEGATIVE (Neg); LEUKOCYTE ESTERASE ,URINE LARGE (Neg); NITRITES, URINE POSITIVE (Neg); OCCULT BLOOD,URINE MODERATE (Neg); PROTEIN,URINE TRACE mg/dl (Neg); UROBILINOGEN,URINE 0.2 E.U/dL (0.2-1.0)
[2017-12-10 19:08] LABS: ALANINE AMINOTRANSFERASE 20 U/L (12-78); ALBUMIN 2.8 G/DL (3.4-5.0); ALBUMIN/GLOBULIN RATIO 0.5 (1.1-1.5); ALKALINE PHOSPHATASE 147 IU/L (46-116); ANION GAP 12 (8-16); ASPARTATE AMINO TRANSFERASE 17 U/L (10-37); BILIRUBIN,TOTAL 1.2 MG/DL (0.1-1.0); BLOOD UREA NITROGEN 70 MG/DL (7-18); BUN/CREATININE RATIO 14.7 (5.4-32.0); CALCIUM 8.9 MG/DL (8.5-10.1); CHLORIDE 100 MMOL/L (99-107); CREATININE 4.77 MG/DL (0.60-1.10); POTASSIUM 3.4 MMOL/L (3.5-5.1); SODIUM 133 MMOL/L (135-145); TOTAL CARBON DIOXIDE 20.9 MMOL/L (24-32); TOTAL PROTEIN 8.9 G/DL (6.4-8.2); eGFR 13 ML/MIN
[2017-12-10 19:10] LABS: UA COLLECTION TYPE STRAIGHT CATH
[2017-12-10 19:13] LABS: GLUCOSE 181 MG/DL (70-104)
[2017-12-10 19:21] LABS: BACTERIA,URINE 2+ /HPF (Neg); SQUAMOUS EPITHELIAL CELL,UR NONE SEEN /LPF (FEW); WBC,URINE TNTC /HPF (0-4)
[2017-12-10] MEDS ORDERED: CefTRIAXone 2gm/D5W 50ml 50 ML IV ONE (19:55)
[2017-12-10] MEDS ORDERED: normal saline 1000ML IV soln IVB ONE (20:00)
[2017-12-10] MEDS ORDERED: ondansetron/PF 4mg/2ml inj IV PRN (21:45)
[2017-12-10] MEDS ORDERED: acetaminophen 325mg tablet PO PRN (21:45)
[2017-12-10] MEDS ORDERED: HYDROcodone/acetaminophen 5mg/325mg tablet PO PRN (21:45)
[2017-12-10] MEDS ORDERED: vancomycin/NS 1 GM ADD-VANTAGE 250 ML X 1 DOSE IV ONE (21:55)
[2017-12-10] MEDS: normal saline 1000ml 1,000 ML IV SCH (23:52)
[2017-12-11] VITALS (7 sets, daily range): BP systolic 108–134; BP diastolic 58–77
[2017-12-11] MEDS ORDERED: tamsulosin 0.4mg capsule PO SCH (02:50)
[2017-12-11] MEDS: guaiFENesin/codeine phos 10ml UD oral syrup PO PRN ×7 (03:17→21:29)
[2017-12-11 06:05] LABS: BASOPHILS % (AUTO) 0.8 % (0-1); EOSINOPHILS # (AUTO) 0.2 X10'3 (0-0.9); EOSINOPHILS % (AUTO) 3.8 % (0-6); HEMATOCRIT 24.5 % (42.0-52.0); HEMOGLOBIN 8.5 g/dl (14.0-17.9); LYMPHOCYTES # (AUTO) 0.5 X10'3 (1.1-4.8); LYMPHOCYTES % (AUTO) 8.5 % (21-51); MEAN CORPUSCULAR HEMOGLOBIN 29.9 PG (27.0-31.0); MEAN CORPUSCULAR HGB CONC 34.9 % (33.0-36.5); MEAN CORPUSCULAR VOLUME 85.6 FL (78-98); MEAN PLATELET VOLUME 7.9 FL (7.4-10.4); MONOCYTES # (AUTO) 0.7 X10'3 (0-0.9); MONOCYTES % (AUTO) 11.3 % (2-12); NEUTROPHILS # (AUTO) 4.8 X10'3 (1.8-7.7); NEUTROPHILS % (AUTO) 75.6 % (42-75); PLATELET COUNT 95 X10'3 (140-440); RED BLOOD COUNT 2.86 X10'6 (4.70-6.10); RED CELL DISTRIBUTION WIDTH 14.5 % (11.5-14.5); WHITE BLOOD COUNT 6.3 X10'3 (4.5-11.0)
[2017-12-11 06:27] LABS: ALANINE AMINOTRANSFERASE 13 U/L (12-78); ALBUMIN 2.3 G/DL (3.4-5.0); ALBUMIN/GLOBULIN RATIO 0.4 (1.1-1.5); ALKALINE PHOSPHATASE 127 IU/L (46-116); ANION GAP 12 (8-16); ASPARTATE AMINO TRANSFERASE 19 U/L (10-37); BLOOD UREA NITROGEN 66 MG/DL (7-18); BUN/CREATININE RATIO 14.3 (5.4-32.0); CALCIUM 8.5 MG/DL (8.5-10.1); CHLORIDE 109 MMOL/L (99-107); CREATININE 4.63 MG/DL (0.60-1.10); POTASSIUM 3.8 MMOL/L (3.5-5.1); SODIUM 142 MMOL/L (135-145); TOTAL CARBON DIOXIDE 21.1 MMOL/L (24-32); TOTAL PROTEIN 7.6 G/DL (6.4-8.2); eGFR 13 ML/MIN
[2017-12-11 06:28] LABS: GLUCOSE 134 MG/DL (70-104)
[2017-12-11] MEDS: pantoprazole 40mg Tablet.DR PO SCH ×2 (07:21→18:00)
[2017-12-11] MEDS: CefTRIAXone/D5W-Rocephin 1gm 50 ML IV SCH (07:21)
[2017-12-11] MEDS ORDERED: vancomycin inj 1,250 MG in normal saline 250ml IV soln 250 ML IV PRN (10:30)
[2017-12-11] MEDS: normal saline 1000ml 1,000 ML IV SCH ×2 (11:56→17:43)
[2017-12-11] MEDS: lactobacillus rhamnosus 10,000 MMU CELLS/CAPSULE PO SCH (20:40)
[2017-12-11] MEDS: tamsulosin 0.4mg capsule PO SCH (20:40)
[2017-12-11 22:12] LABS: CREATININE,URINE RANDOM 29.2 MG/DL
[2017-12-12] VITALS (7 sets, daily range): BP systolic 109–138; BP diastolic 63–75
[2017-12-12] MEDS: guaiFENesin/codeine phos 10ml UD oral syrup PO PRN ×7 (02:08→20:47)
[2017-12-12] MEDS: normal saline 1000ml 1,000 ML IV SCH ×2 (04:13→09:41)
[2017-12-12 06:05] LABS: BASOPHILS % (AUTO) 0.7 % (0-1); EOSINOPHILS # (AUTO) 0.2 X10'3 (0-0.9); EOSINOPHILS % (AUTO) 5.1 % (0-6); HEMATOCRIT 22.9 % (42.0-52.0); LYMPHOCYTES # (AUTO) 0.5 X10'3 (1.1-4.8); LYMPHOCYTES % (AUTO) 16.3 % (21-51); MEAN CORPUSCULAR HGB CONC 35.1 % (33.0-36.5); MEAN CORPUSCULAR VOLUME 85.4 FL (78-98); MEAN PLATELET VOLUME 7.7 FL (7.4-10.4); MONOCYTES # (AUTO) 0.4 X10'3 (0-0.9); MONOCYTES % (AUTO) 12.9 % (2-12); NEUTROPHILS # (AUTO) 2.2 X10'3 (1.8-7.7); PLATELET COUNT 80 X10'3 (140-440); RED BLOOD COUNT 2.68 X10'6 (4.70-6.10); RED CELL DISTRIBUTION WIDTH 14.9 % (11.5-14.5); WHITE BLOOD COUNT 3.3 X10'3 (4.5-11.0)
[2017-12-12 06:32] LABS: ALANINE AMINOTRANSFERASE 10 U/L (12-78); ALBUMIN 2.2 G/DL (3.4-5.0); ALBUMIN/GLOBULIN RATIO 0.4 (1.1-1.5); ALKALINE PHOSPHATASE 113 IU/L (46-116); ANION GAP 10 (8-16); ASPARTATE AMINO TRANSFERASE 15 U/L (10-37); BILIRUBIN,TOTAL 0.7 MG/DL (0.1-1.0); BLOOD UREA NITROGEN 64 MG/DL (7-18); BUN/CREATININE RATIO 14.2 (5.4-32.0); CALCIUM 8.2 MG/DL (8.5-10.1); CHLORIDE 109 MMOL/L (99-107); CREATININE 4.52 MG/DL (0.60-1.10); POTASSIUM 3.8 MMOL/L (3.5-5.1); SODIUM 140 MMOL/L (135-145); TOTAL CARBON DIOXIDE 20.8 MMOL/L (24-32); TOTAL PROTEIN 7.2 G/DL (6.4-8.2); eGFR 13 ML/MIN
[2017-12-12 06:33] LABS: GLUCOSE 130 MG/DL (70-104); VANCOMYCIN,RANDOM 9.2 UG/ML
[2017-12-12] MEDS ORDERED: vancomycin inj 1,250 MG in normal saline 250ml IV soln 250 ML IV ONE (07:50)
[2017-12-12] MEDS: lactobacillus rhamnosus 10,000 MMU CELLS/CAPSULE PO SCH ×2 (08:12→20:48)
[2017-12-12] MEDS: CefTRIAXone/D5W-Rocephin 1gm 50 ML IV SCH (08:12)
[2017-12-12] MEDS: pantoprazole 40mg Tablet.DR PO SCH ×2 (08:12→17:04)
[2017-12-12 09:54] LABS: % IRON SATURATION 12 % (11-46); IRON 24 UG/DL (53-167); TOTAL IRON BINDING CAPACITY 208 UG/DL (259-388)
[2017-12-12] MEDS: tamsulosin 0.4mg capsule PO SCH (20:48)
[2017-12-12] MEDS ORDERED: diatr meglu/diatrizoate 30ml oral sol.-(3 dose) bottle PO SCH (21:00)
[2017-12-13] MEDS: normal saline 1000ml 1,000 ML IV SCH ×3 (00:07→18:38)
[2017-12-13 05:00] VITALS: BP 126/70
[2017-12-13] MEDS: guaiFENesin/codeine phos 10ml UD oral syrup PO PRN (05:59)
[2017-12-13 06:38] LABS: ALANINE AMINOTRANSFERASE 18 U/L (12-78); ALBUMIN 2.1 G/DL (3.4-5.0); ALBUMIN/GLOBULIN RATIO 0.4 (1.1-1.5); ALKALINE PHOSPHATASE 126 IU/L (46-116); ANION GAP 11 (8-16); ASPARTATE AMINO TRANSFERASE 20 U/L (10-37); BILIRUBIN,TOTAL 0.5 MG/DL (0.1-1.0); BLOOD UREA NITROGEN 60 MG/DL (7-18); BUN/CREATININE RATIO 13.2 (5.4-32.0); CALCIUM 8.3 MG/DL (8.5-10.1); CHLORIDE 110 MMOL/L (99-107); CREATININE 4.55 MG/DL (0.60-1.10); POTASSIUM 4.3 MMOL/L (3.5-5.1); SODIUM 141 MMOL/L (135-145); TOTAL CARBON DIOXIDE 20.5 MMOL/L (24-32); TOTAL PROTEIN 7.1 G/DL (6.4-8.2); eGFR 13 ML/MIN
[2017-12-13 06:39] LABS: GLUCOSE 165 MG/DL (70-104); VANCOMYCIN,RANDOM 18.4 UG/ML
[2017-12-13 06:51] LABS: HEMATOCRIT 23.2 % (42.0-52.0); HEMOGLOBIN 8.2 g/dl (14.0-17.9); MEAN CORPUSCULAR HEMOGLOBIN 29.9 PG (27.0-31.0); MEAN CORPUSCULAR HGB CONC 35.3 % (33.0-36.5); MEAN CORPUSCULAR VOLUME 84.8 FL (78-98); MEAN PLATELET VOLUME 7.6 FL (7.4-10.4); PLATELET COUNT 80 X10'3 (140-440); RED BLOOD COUNT 2.74 X10'6 (4.70-6.10); RED CELL DISTRIBUTION WIDTH 14.5 % (11.5-14.5); WHITE BLOOD COUNT 2.7 X10'3 (4.5-11.0)
[2017-12-13 07:16] LABS: ANISOCYTOSIS 1+; MICROCYTOSIS 1+; PLATELET ESTIMATE DECREASED; TOTAL CELLS COUNTED 100
[2017-12-13] MEDS: CefTRIAXone/D5W-Rocephin 1gm 50 ML IV SCH (08:22)
[2017-12-13] MEDS: lactobacillus rhamnosus 10,000 MMU CELLS/CAPSULE PO SCH ×2 (08:23→20:35)
[2017-12-13] MEDS: pantoprazole 40mg Tablet.DR PO SCH ×2 (08:23→18:37)
[2017-12-13 10:00] VITALS: BP 104/69
[2017-12-13] MEDS: benzonatate 100mg capsule PO PRN ×2 (14:31→20:34)
[2017-12-13 18:00] VITALS: BP 119/70
[2017-12-13] MEDS: tamsulosin 0.4mg capsule PO SCH (20:34)
[2017-12-13 22:00] VITALS: BP 122/77
[2017-12-14] MEDS: benzonatate 100mg capsule PO PRN (02:49)
[2017-12-14] MEDS: normal saline 1000ml 1,000 ML IV SCH ×2 (03:59→14:46)
[2017-12-14 06:00] VITALS: BP 116/69
[2017-12-14 07:09] LABS: BASOPHILS % (AUTO) 0.5 % (0-1); EOSINOPHILS # (AUTO) 0.2 X10'3 (0-0.9); EOSINOPHILS % (AUTO) 7.6 % (0-6); HEMATOCRIT 22.5 % (42.0-52.0); HEMOGLOBIN 7.7 g/dl (14.0-17.9); LYMPHOCYTES # (AUTO) 0.4 X10'3 (1.1-4.8); LYMPHOCYTES % (AUTO) 16.1 % (21-51); MEAN CORPUSCULAR HEMOGLOBIN 29.4 PG (27.0-31.0); MEAN CORPUSCULAR HGB CONC 34.3 % (33.0-36.5); MEAN CORPUSCULAR VOLUME 85.7 FL (78-98); MEAN PLATELET VOLUME 7.7 FL (7.4-10.4); MONOCYTES # (AUTO) 0.3 X10'3 (0-0.9); MONOCYTES % (AUTO) 13.4 % (2-12); NEUTROPHILS # (AUTO) 1.5 X10'3 (1.8-7.7); NEUTROPHILS % (AUTO) 62.4 % (42-75); PLATELET COUNT 74 X10'3 (140-440); RED BLOOD COUNT 2.62 X10'6 (4.70-6.10); RED CELL DISTRIBUTION WIDTH 14.7 % (11.5-14.5); WHITE BLOOD COUNT 2.5 X10'3 (4.5-11.0)
[2017-12-14] MEDS: pantoprazole 40mg Tablet.DR PO SCH ×2 (07:11→17:23)
[2017-12-14] MEDS: lactobacillus rhamnosus 10,000 MMU CELLS/CAPSULE PO SCH ×2 (07:11→20:42)
[2017-12-14] MEDS: CefTRIAXone/D5W-Rocephin 1gm 50 ML IV SCH (07:12)
[2017-12-14 07:42] LABS: TOTAL CELLS COUNTED 100
[2017-12-14 07:43] LABS: ANISOCYTOSIS 1+; MICROCYTOSIS 1+; PLATELET ESTIMATE DECREASED; POIKILOCYTOSIS FEW
[2017-12-14 08:03] LABS: ALANINE AMINOTRANSFERASE 15 U/L (12-78); ALBUMIN 2.1 G/DL (3.4-5.0); ALBUMIN/GLOBULIN RATIO 0.4 (1.1-1.5); ALKALINE PHOSPHATASE 134 IU/L (46-116); ANION GAP 12 (8-16); ASPARTATE AMINO TRANSFERASE 21 U/L (10-37); BILIRUBIN,TOTAL 0.5 MG/DL (0.1-1.0); BLOOD UREA NITROGEN 61 MG/DL (7-18); BUN/CREATININE RATIO 13.4 (5.4-32.0); CALCIUM 8.3 MG/DL (8.5-10.1); CHLORIDE 111 MMOL/L (99-107); CREATININE 4.55 MG/DL (0.60-1.10); POTASSIUM 4.5 MMOL/L (3.5-5.1); SODIUM 143 MMOL/L (135-145); TOTAL CARBON DIOXIDE 20.1 MMOL/L (24-32); TOTAL PROTEIN 7.1 G/DL (6.4-8.2); eGFR 13 ML/MIN
[2017-12-14 08:05] LABS: GLUCOSE 102 MG/DL (70-104); VANCOMYCIN,RANDOM 14.3 UG/ML
[2017-12-14 10:00] VITALS: BP 101/65
[2017-12-14] MEDS ORDERED: bisacodyl 10mg suppository rectal RC PRN (10:35)
[2017-12-14] MEDS ORDERED: epoetin 20,000 units/ml inj SQ ONE (11:00)
[2017-12-14 14:10] LABS: FERRITIN 100 NG/ML (26-388)
[2017-12-14 14:30] LABS: % IRON SATURATION 19 % (11-46); IRON 39 UG/DL (53-167); TOTAL IRON BINDING CAPACITY 207 UG/DL (259-388)
[2017-12-14 18:00] VITALS: BP 125/81
[2017-12-14] MEDS: tamsulosin 0.4mg capsule PO SCH (20:42)
[2017-12-15 07:11] LABS: HEMATOCRIT 24.4 % (42.0-52.0); HEMOGLOBIN 8.4 g/dl (14.0-17.9); MEAN CORPUSCULAR HEMOGLOBIN 29.5 PG (27.0-31.0); MEAN CORPUSCULAR HGB CONC 34.4 % (33.0-36.5); MEAN CORPUSCULAR VOLUME 85.9 FL (78-98); MEAN PLATELET VOLUME 7.5 FL (7.4-10.4); PLATELET COUNT 82 X10'3 (140-440); RED BLOOD COUNT 2.84 X10'6 (4.70-6.10); RED CELL DISTRIBUTION WIDTH 14.6 % (11.5-14.5); WHITE BLOOD COUNT 2.5 X10'3 (4.5-11.0)
[2017-12-15 07:24] LABS: ALBUMIN 2.3 G/DL (3.4-5.0); ANION GAP 11 (8-16); BILIRUBIN,TOTAL 0.6 MG/DL (0.1-1.0); BLOOD UREA NITROGEN 59 MG/DL (7-18); BUN/CREATININE RATIO 13.3 (5.4-32.0); CALCIUM 8.6 MG/DL (8.5-10.1); CHLORIDE 110 MMOL/L (99-107); CREATININE 4.44 MG/DL (0.60-1.10); POTASSIUM 4.3 MMOL/L (3.5-5.1); SODIUM 140 MMOL/L (135-145); TOTAL PROTEIN 7.4 G/DL (6.4-8.2); eGFR 14 ML/MIN
[2017-12-15 07:25] LABS: ALANINE AMINOTRANSFERASE 18 U/L (12-78); ALBUMIN/GLOBULIN RATIO 0.5 (1.1-1.5); ALKALINE PHOSPHATASE 150 IU/L (46-116); ASPARTATE AMINO TRANSFERASE 27 U/L (10-37)
[2017-12-15 07:28] LABS: OCCULT BLOOD STOOL NEGATIVE (Neg)
[2017-12-15 07:33] LABS: GLUCOSE 118 MG/DL (70-104); VANCOMYCIN,RANDOM 11.5 UG/ML
[2017-12-15 07:34] LABS: TOTAL CELLS COUNTED 100
[2017-12-15 07:35] LABS: ANISOCYTOSIS 1+; MICROCYTOSIS 1+; PLATELET ESTIMATE DECREASED; POIKILOCYTOSIS FEW
[2017-12-15] MEDS: pantoprazole 40mg Tablet.DR PO SCH ×2 (07:52→16:32)
[2017-12-15] MEDS: lactobacillus rhamnosus 10,000 MMU CELLS/CAPSULE PO SCH ×2 (07:52→19:33)
[2017-12-15] MEDS: CefTRIAXone/D5W-Rocephin 1gm 50 ML IV SCH (07:53)
[2017-12-15 09:08] VITALS: BP 121/71
[2017-12-15 10:42] VITALS: BP 114/68
[2017-12-15] MEDS: normal saline 1000ml 1,000 ML IV SCH (16:19)
[2017-12-15 18:00] VITALS: BP 122/69
[2017-12-15] MEDS: tamsulosin 0.4mg capsule PO SCH (19:33)
[2017-12-15 22:00] VITALS: BP 117/67
[2017-12-16 05:00] VITALS: BP 110/64
[2017-12-16 05:46] LABS: BASOPHILS % (AUTO) 0.8 % (0-1); EOSINOPHILS # (AUTO) 0.2 X10'3 (0-0.9); EOSINOPHILS % (AUTO) 10.1 % (0-6); HEMATOCRIT 23.3 % (42.0-52.0); HEMOGLOBIN 8.1 g/dl (14.0-17.9); LYMPHOCYTES # (AUTO) 0.5 X10'3 (1.1-4.8); LYMPHOCYTES % (AUTO) 20.2 % (21-51); MEAN CORPUSCULAR HEMOGLOBIN 29.6 PG (27.0-31.0); MEAN CORPUSCULAR HGB CONC 34.8 % (33.0-36.5); MEAN CORPUSCULAR VOLUME 85.1 FL (78-98); MEAN PLATELET VOLUME 7.4 FL (7.4-10.4); MONOCYTES # (AUTO) 0.2 X10'3 (0-0.9); MONOCYTES % (AUTO) 10.6 % (2-12); NEUTROPHILS # (AUTO) 1.4 X10'3 (1.8-7.7); NEUTROPHILS % (AUTO) 58.3 % (42-75); PLATELET COUNT 78 X10'3 (140-440); RED BLOOD COUNT 2.74 X10'6 (4.70-6.10); RED CELL DISTRIBUTION WIDTH 14.9 % (11.5-14.5); WHITE BLOOD COUNT 2.3 X10'3 (4.5-11.0)
[2017-12-16 06:05] LABS: BASOPHILS % (MANUAL) 3 % (0-1); ELLIPTOCYTES 1+; EOSINOPHILS % (MANUAL) 11 % (0-6); LYMPHOCYTES % (MANUAL) 17 % (21-51); MONOCYTES % (MANUAL) 6 % (2-12); NEUTROPHILS % (MANUAL) 63 % (42-75); PLATELET ESTIMATE DECREASED; ROULEAUX 1+; TOTAL CELLS COUNTED 100
[2017-12-16 06:40] LABS: ALBUMIN 2.2 G/DL (3.4-5.0); ANION GAP 12 (8-16); BLOOD UREA NITROGEN 54 MG/DL (7-18); BUN/CREATININE RATIO 12.5 (5.4-32.0); CALCIUM 8.8 MG/DL (8.5-10.1); CHLORIDE 108 MMOL/L (99-107); CREATININE 4.31 MG/DL (0.60-1.10); POTASSIUM 4.3 MMOL/L (3.5-5.1); SODIUM 140 MMOL/L (135-145); TOTAL CARBON DIOXIDE 19.6 MMOL/L (24-32); eGFR 14 ML/MIN
[2017-12-16 06:43] LABS: GLUCOSE 118 MG/DL (70-104); VANCOMYCIN,RANDOM 8.8 UG/ML
[2017-12-16] MEDS: pantoprazole 40mg Tablet.DR PO SCH (07:50)
[2017-12-16] MEDS: lactobacillus rhamnosus 10,000 MMU CELLS/CAPSULE PO SCH (07:50)
[2017-12-16] MEDS: CefTRIAXone/D5W-Rocephin 1gm 50 ML IV SCH (07:50)
[2017-12-16] MEDS: normal saline 1000ml 1,000 ML IV SCH (07:51)
[2017-12-16 10:00] VITALS: BP 121/73
[2017-12-16] MEDS ORDERED: EPOE10003 IV (11:29)
[2017-12-16] MEDS ORDERED: TAMS0.4C32 PO (11:29)
== END 2017-12-16 15:40 | disposition home health service (06) | DRG 465 ==
LOC: ER 17:46 → ED HOLD 21:43 → PCU 3S 22:45 → ORTHO 4S 12-12 19:31
PROVIDERS: ADMIT Internal Medicine; ATTEND Family Medicine
DX: N13.30 Unspecified hydronephrosis (principal); N17.9 Acute kidney failure, unspecified; E87.2 Acidosis; G62.9 Polyneuropathy, unspecified; N39.0 Urinary tract infection, site not specified; K70.30 Alcoholic cirrhosis of liver without ascites; B96.1 Klebsiella pneumoniae [K. pneumoniae] as the cause of diseases classified elsewhere; D50.0 Iron deficiency anemia secondary to blood loss (chronic); E86.0 Dehydration; N18.9 Chronic kidney disease, unspecified; N31.9 Neuromuscular dysfunction of bladder, unspecified; N40.0 Benign prostatic hyperplasia without lower urinary tract symptoms; R04.0 Epistaxis; Z82.0 Family history of epilepsy and other diseases of the nervous system; Z82.3 Family history of stroke; Z82.41 Family history of sudden cardiac death; Z82.49 Family history of ischemic heart disease and other diseases of the circulatory system; Z82.5 Family history of asthma and other chronic lower respiratory diseases; Z83.3 Family history of diabetes mellitus; Z85.6 Personal history of leukemia; Z87.11 Personal history of peptic ulcer disease; Z87.891 Personal history of nicotine dependence
CPT/HCPCS: 36415; 71045; 74176; 76775; 80048; 80053; 80202; 81001; 82272; 82570; 82607; 82728; 82746; 83540; 83550; 83935; 84300; 85025; 85610; 87077; 87088; 87186; 96365; 97116; 97161; 99285; A4315; A4353; J0696; J0885; J3370; J7030

== ENCOUNTER 2019-02-12 22:29 | Inpatient (IN) | payer MEDICAID ==
[~2019-02-12] VITALS: Ht 190.5 cm; Wt 81.8 kg
[~2019-02-12 22:29] MED LIST changes: +EPOE10003 IV; -FOLI1TAB16 PO; -GABA-532 PO; -LORA2TAB PO; -MAGN400T6 PO; -PROP20TA6 PO; -THIA100T73 PO
--- NOTE | 2019-02-12 22:54 | NUR ---
Pt given Octreotide, TXA, and pantoprazol at [facility]
[2019-02-12] MEDS ORDERED: pantoprazole 40MG/NS 100ML BAG 100 ML IV SCH (23:00)
[2019-02-12] MEDS ORDERED: octreotide inj. 1,250 MCG in normal saline 250ml IV soln 250 ML IV SCH (23:05)
[2019-02-12 23:42] LABS: BASOPHILS # (AUTO) 0.1 X10'3 (0-0.2); EOSINOPHILS # (AUTO) 0.1 X10'3 (0-0.9); HEMOGLOBIN 8.1 g/dl (14.0-17.9); LYMPHOCYTES # (AUTO) 0.5 X10'3 (1.1-4.8); MEAN PLATELET VOLUME 8.4 FL (7.4-10.4); MONOCYTES # (AUTO) 0.7 X10'3 (0-0.9); NEUTROPHILS # (AUTO) 1.6 X10'3 (1.8-7.7); PLATELET COUNT 65 X10'3 (140-440); WHITE BLOOD COUNT 2.9 X10'3 (4.5-11.0)
[2019-02-12 23:44] LABS: BASOPHILS % (AUTO) 2.8 % (0-1); EOSINOPHILS % (AUTO) 4.6 % (0-6); HEMATOCRIT 23.3 % (42.0-52.0); MEAN CORPUSCULAR HEMOGLOBIN 33.9 PG (27.0-31.0); MEAN CORPUSCULAR HGB CONC 34.8 g/dL (33.0-36.5); MEAN CORPUSCULAR VOLUME 97.6 FL (78-98); MONOCYTES % (AUTO) 22.1 % (2-12); NEUTROPHILS % (AUTO) 53.5 % (42-75); RED BLOOD COUNT 2.39 X10'6 (4.70-6.10); RED CELL DISTRIBUTION WIDTH 13.6 % (11.5-14.5)
[2019-02-12] MEDS ORDERED: metoclopramide 5 mg/ml inj IV PRN (23:45)
[2019-02-12] MEDS ORDERED: mag hydrox/Alum hydrox/simeth 30ml oral suspension PO PRN (23:45)
[2019-02-12] MEDS ORDERED: magnesium hydroxide 30ml (MOM) UD suspension PO PRN (23:45)
[2019-02-12] MEDS ORDERED: morphine 2 MG/ML inj. syringe IV PRN ×2 (23:45)
[2019-02-12] MEDS ORDERED: HYDROcodone/acetaminophen 5mg/325mg tablet PO PRN (23:45)
[2019-02-12] MEDS ORDERED: ondansetron/PF 4mg/2ml inj IV PRN (23:45)
[2019-02-12] MEDS ORDERED: acetaminophen 325mg tablet PO PRN ×2 (23:45)
--- NOTE | 2019-02-12 23:50 | NUR ---
LAB CALLED AND STATED IT WILL TAKE 2HRS TO RECIEVED BLOOD FOR PAITENT DUE ABNORMAL ANTIBODIES.
[2019-02-12] MEDS: normal saline 1000ml 1,000 ML IV SCH (23:52)
[2019-02-12 23:58] LABS: PARTIAL THROMBOPLASTIN TIME 29 SECONDS (22-32)
[2019-02-13] VITALS (9 sets, daily range): BP systolic 83–133; BP diastolic 44–70
[2019-02-13] MEDS: octreotide inj. 1,250 MCG in normal saline 250ml IV soln 243.75 ML IV SCH (00:03)
[2019-02-13 00:09] LABS: ALANINE AMINOTRANSFERASE 35 U/L (12-78); ALBUMIN 2.6 G/DL (3.4-5.0); ALBUMIN/GLOBULIN RATIO 0.7 (1.1-1.5); ALKALINE PHOSPHATASE 99 IU/L (46-116); ANION GAP 8 (8-16); ASPARTATE AMINO TRANSFERASE 37 U/L (10-37); BILIRUBIN,TOTAL 1.1 MG/DL (0.1-1.0); BLOOD UREA NITROGEN 51 MG/DL (7-18); BUN/CREATININE RATIO 22.8 (5.4-32.0); CALCIUM 7.8 MG/DL (8.5-10.1); CHLORIDE 110 MMOL/L (99-107); CREATININE 2.24 MG/DL (0.60-1.10); GLUCOSE 119 MG/DL (70-104); SODIUM 140 MMOL/L (135-145); TOTAL CARBON DIOXIDE 21.9 MMOL/L (24-32); TOTAL CELLS COUNTED 100; TOTAL PROTEIN 6.6 G/DL (6.4-8.2); eGFR 30 ML/MIN
[2019-02-13 00:17] LABS: PLATELET ESTIMATE DECREASED
[2019-02-13 00:18] LABS: BURR CELLS 1+; ELLIPTOCYTES 1+
[2019-02-13] MEDS: normal saline 1000ml 1,000 ML IV SCH ×2 (02:42→19:41)
[2019-02-13] MEDS: pantoprazole 40MG/NS 100ML BAG 100 ML IV SCH ×5 (02:42→20:10)
[2019-02-13 05:13] LABS: CLARITY,URINE SLIGHTLY CLOUDY (Clear); COLOR,URINE YELLOW (Yellow); GLUCOSE, URINE NEGATIVE (Neg); KETONES,URINE NEGATIVE (Neg); LEUKOCYTE ESTERASE ,URINE LARGE (Neg); NITRITES, URINE POSITIVE (Neg); OCCULT BLOOD,URINE SMALL (Neg); PH,URINE 7.5 (4.8-8.0); PROTEIN,URINE 30 mg/dl (Neg); UROBILINOGEN,URINE 0.2 E.U/dL (0.2-1.0)
[2019-02-13 05:18] LABS: HEMOGLOBIN 9.4 g/dl (14.0-17.9)
[2019-02-13 05:18] LABS: UA COLLECTION TYPE CLN CATCH MIDSTREAM
[2019-02-13 05:20] LABS: HEMATOCRIT 26.7 % (42.0-52.0); MEAN CORPUSCULAR HEMOGLOBIN 34.1 PG (27.0-31.0); MEAN CORPUSCULAR VOLUME 97.3 FL (78-98); MEAN PLATELET VOLUME 8.7 FL (7.4-10.4); PLATELET COUNT 83 X10'3 (140-440); RED BLOOD COUNT 2.74 X10'6 (4.70-6.10); RED CELL DISTRIBUTION WIDTH 13.6 % (11.5-14.5); WHITE BLOOD COUNT 5.7 X10'3 (4.5-11.0)
[2019-02-13 05:20] LABS: WBC,URINE 30-50 /HPF (0-4)
[2019-02-13 05:21] LABS: BACTERIA,URINE 2+ /HPF (Neg); RBC,URINE NONE SEEN /HPF (0-2); SQUAMOUS EPITHELIAL CELL,UR FEW /LPF (FEW); WBC CLUMPS,URINE MODERATE /HPF (NEGATIVE)
[2019-02-13 05:22] LABS: AMORPHOUS PHOSPHATES 1+
[2019-02-13 05:35] LABS: ALBUMIN 2.7 G/DL (3.4-5.0); ANION GAP 14 (8-16); BLOOD UREA NITROGEN 50 MG/DL (7-18); BUN/CREATININE RATIO 20.7 (5.4-32.0); CALCIUM 8.1 MG/DL (8.5-10.1); CHLORIDE 109 MMOL/L (99-107); CREATININE 2.42 MG/DL (0.60-1.10); GLUCOSE 126 MG/DL (70-104); POTASSIUM 3.9 MMOL/L (3.5-5.1); SODIUM 141 MMOL/L (135-145); TOTAL CARBON DIOXIDE 17.7 MMOL/L (24-32); eGFR 27 ML/MIN
--- NOTE | 2019-02-13 06:34 | NUR ---
Problems reprioritized. Patient report given, questions answered & plan of care reviewed with DUSTY Daley. Addendum: 02/13/19 at 0635 by Azul Jay RN Amended: Links added.
[2019-02-13 06:58] LABS: PLATELET ESTIMATE DECREASED; TOTAL CELLS COUNTED 100
[2019-02-13 06:59] LABS: BURR CELLS 1+; ROULEAUX 1+
[2019-02-13] MEDS ORDERED: fentaNYL/PF 50MCG/1 ML 2ML syringe ONE (09:28)
[2019-02-13] MEDS ORDERED: MIDAZolam 5mg/5ml vial ONE (09:29)
[2019-02-13] MEDS ORDERED: LIDOcaine Viscous 15ml cup ONE (09:29)
[2019-02-13 09:30] LABS: HEMATOCRIT 24.4 % (42.0-52.0); HEMOGLOBIN 8.5 g/dl (14.0-17.9); MEAN CORPUSCULAR HEMOGLOBIN 33.2 PG (27.0-31.0); MEAN CORPUSCULAR HGB CONC 34.7 g/dL (33.0-36.5); MEAN CORPUSCULAR VOLUME 95.6 FL (78-98); MEAN PLATELET VOLUME 8.3 FL (7.4-10.4); PLATELET COUNT 70 X10'3 (140-440); RED BLOOD COUNT 2.55 X10'6 (4.70-6.10); RED CELL DISTRIBUTION WIDTH 13.6 % (11.5-14.5); WHITE BLOOD COUNT 3.2 X10'3 (4.5-11.0)
[2019-02-13 15:30] LABS: HEMOGLOBIN 7.5 g/dl (14.0-17.9); MEAN CORPUSCULAR HEMOGLOBIN 33.4 PG (27.0-31.0); MEAN CORPUSCULAR HGB CONC 34.7 g/dL (33.0-36.5); MEAN CORPUSCULAR VOLUME 96.1 FL (78-98); MEAN PLATELET VOLUME 8.8 FL (7.4-10.4); PLATELET COUNT 60 X10'3 (140-440); RED BLOOD COUNT 2.24 X10'6 (4.70-6.10); RED CELL DISTRIBUTION WIDTH 13.4 % (11.5-14.5); WHITE BLOOD COUNT 2.2 X10'3 (4.5-11.0)
[2019-02-13 15:37] LABS: HEMATOCRIT 21.5 % (42.0-52.0)
--- NOTE | 2019-02-13 17:57 | NUR ---
Patient in room JUSTEN 344. I have received report from EMMA MONTANO and had the opportunity to ask questions and assume patient care.
--- NOTE | 2019-02-13 18:00 | NUR ---
Patient in room JUSTEN 344. I have received report from Thuy MONTANO and had the opportunity to ask questions and assume patient care.
--- NOTE | 2019-02-13 18:16 | NUR ---
GAVE REPORT TO SHASHA MONTANO
[2019-02-13 21:57] LABS: HEMOGLOBIN 7.6 g/dl (14.0-17.9); MEAN CORPUSCULAR HEMOGLOBIN 33.4 PG (27.0-31.0); MEAN CORPUSCULAR VOLUME 95.4 FL (78-98); MEAN PLATELET VOLUME 8.8 FL (7.4-10.4); PLATELET COUNT 62 X10'3 (140-440); RED BLOOD COUNT 2.29 X10'6 (4.70-6.10); RED CELL DISTRIBUTION WIDTH 13.7 % (11.5-14.5); WHITE BLOOD COUNT 1.9 X10'3 (4.5-11.0)
[2019-02-13 22:00] LABS: HEMATOCRIT 21.8 % (42.0-52.0)
[2019-02-14] VITALS: BP 131/74
[2019-02-14] MEDS: pantoprazole 40MG/NS 100ML BAG 100 ML IV SCH ×2 (00:56→07:30)
[2019-02-14] MEDS: normal saline 1000ml 1,000 ML IV SCH ×3 (01:53→22:27)
[2019-02-14 05:21] LABS: BASOPHILS # (AUTO) 0.1 X10'3 (0-0.2); EOSINOPHILS # (AUTO) 0.2 X10'3 (0-0.9); HEMOGLOBIN 8.2 g/dl (14.0-17.9); LYMPHOCYTES # (AUTO) 0.5 X10'3 (1.1-4.8); MEAN CORPUSCULAR HEMOGLOBIN 33.9 PG (27.0-31.0); MONOCYTES # (AUTO) 0.4 X10'3 (0-0.9); NEUTROPHILS # (AUTO) 1.1 X10'3 (1.8-7.7); RED BLOOD COUNT 2.43 X10'6 (4.70-6.10)
[2019-02-14 05:23] LABS: BASOPHILS % (AUTO) 2.3 % (0-1); EOSINOPHILS % (AUTO) 8.8 % (0-6); HEMATOCRIT 23.3 % (42.0-52.0); LYMPHOCYTES % (AUTO) 23.1 % (21-51); MEAN CORPUSCULAR HGB CONC 35.3 g/dL (33.0-36.5); MEAN CORPUSCULAR VOLUME 96.1 FL (78-98); MEAN PLATELET VOLUME 8.2 FL (7.4-10.4); MONOCYTES % (AUTO) 17.5 % (2-12); NEUTROPHILS % (AUTO) 48.3 % (42-75); PLATELET COUNT 70 X10'3 (140-440); RED CELL DISTRIBUTION WIDTH 13.9 % (11.5-14.5); WHITE BLOOD COUNT 2.3 X10'3 (4.5-11.0)
[2019-02-14 05:32] LABS: ALBUMIN 2.5 G/DL (3.4-5.0); ANION GAP 12 (8-16); BLOOD UREA NITROGEN 41 MG/DL (7-18); BUN/CREATININE RATIO 16.9 (5.4-32.0); CALCIUM 7.9 MG/DL (8.5-10.1); CHLORIDE 112 MMOL/L (99-107); CREATININE 2.43 MG/DL (0.60-1.10); GLUCOSE 103 MG/DL (70-104); POTASSIUM 3.5 MMOL/L (3.5-5.1); SODIUM 143 MMOL/L (135-145); TOTAL CARBON DIOXIDE 18.8 MMOL/L (24-32); eGFR 27 ML/MIN
[2019-02-14 06:22] LABS: PLATELET ESTIMATE DECREASED; TOTAL CELLS COUNTED 100
[2019-02-14 06:23] LABS: ANISOCYTOSIS 1+; ELLIPTOCYTES FEW
--- NOTE | 2019-02-14 06:26 | NUR ---
Problems reprioritized. Patient report given, questions answered & plan of care reviewed with Thuy MONTANO.
--- NOTE | 2019-02-14 06:33 | NUR ---
received report from jose angel mackey
[2019-02-14 07:00] VITALS: BP 132/74
[2019-02-14 08:00] VITALS: BP_SYST 110; BP_SYST 124; BP_SYST 132; BP_DIAS 74; BP_DIAS 76
--- NOTE | 2019-02-14 09:10 | NUR ---
NASAL SWAB CAME BACK POSITIVE FOR MRSA IN THE NARES. CHARGE NOTIFIED
[2019-02-14 12:03] VITALS: BP 113/60
--- NOTE | 2019-02-14 17:44 | NUR ---
Problems reprioritized. Patient report given, questions answered & plan of care reviewed with SHASHA MONTANO.
--- NOTE | 2019-02-14 18:10 | NUR ---
Patient in room JUSTEN 357. I have received report from Thuy MONTANO and had the opportunity to ask questions and assume patient care.
[2019-02-14] MEDS: pantoprazole 40mg Tablet.DR PO SCH (19:20)
[2019-02-14 20:00] VITALS: BP_SYST 110; BP_SYST 118; BP_SYST 124; BP_SYST 134; BP_DIAS 62; BP_DIAS 64; BP_DIAS 70; BP_DIAS 75
[2019-02-15] VITALS: BP 134/70
[2019-02-15] MEDS: octreotide inj. 1,250 MCG in normal saline 250ml IV soln 243.75 ML IV SCH (00:13)
[2019-02-15 06:06] LABS: BASOPHILS # (AUTO) 0.1 X10'3 (0-0.2); BASOPHILS % (AUTO) 1.5 % (0-1); EOSINOPHILS # (AUTO) 0.1 X10'3 (0-0.9); EOSINOPHILS % (AUTO) 2.3 % (0-6); HEMATOCRIT 23.4 % (42.0-52.0); HEMOGLOBIN 8.3 g/dl (14.0-17.9); LYMPHOCYTES # (AUTO) 0.3 X10'3 (1.1-4.8); LYMPHOCYTES % (AUTO) 7.7 % (21-51); MEAN CORPUSCULAR HEMOGLOBIN 33.6 PG (27.0-31.0); MEAN CORPUSCULAR HGB CONC 35.3 g/dL (33.0-36.5); MEAN CORPUSCULAR VOLUME 95.2 FL (78-98); MEAN PLATELET VOLUME 8.6 FL (7.4-10.4); MONOCYTES # (AUTO) 0.4 X10'3 (0-0.9); NEUTROPHILS # (AUTO) 2.8 X10'3 (1.8-7.7); NEUTROPHILS % (AUTO) 77.5 % (42-75); PLATELET COUNT 66 X10'3 (140-440); RED BLOOD COUNT 2.46 X10'6 (4.70-6.10); RED CELL DISTRIBUTION WIDTH 13.5 % (11.5-14.5); WHITE BLOOD COUNT 3.6 X10'3 (4.5-11.0)
[2019-02-15 06:21] LABS: ALBUMIN 2.5 G/DL (3.4-5.0); ANION GAP 11 (8-16); BLOOD UREA NITROGEN 30 MG/DL (7-18); BUN/CREATININE RATIO 12.3 (5.4-32.0); CALCIUM 7.7 MG/DL (8.5-10.1); CHLORIDE 109 MMOL/L (99-107); CREATININE 2.43 MG/DL (0.60-1.10); GLUCOSE 128 MG/DL (70-104); POTASSIUM 3.8 MMOL/L (3.5-5.1); SODIUM 137 MMOL/L (135-145); TOTAL CARBON DIOXIDE 17.2 MMOL/L (24-32); eGFR 27 ML/MIN
--- NOTE | 2019-02-15 06:42 | NUR ---
Problems reprioritized. Patient report given, questions answered & plan of care reviewed with Milvia MONTANO.
[2019-02-15 07:00] VITALS: BP 140/71
[2019-02-15] MEDS: pantoprazole 40mg Tablet.DR PO SCH (07:22)
[2019-02-15] MEDS ORDERED: CIPR250T4 PO (09:47)
--- NOTE | 2019-02-15 10:52 | NUR ---
PT DISCHARGED IN STABLE CONDITION. IV DC CANULA INTACT. FOLLOW UP INSTRUCTIONS GIVEN. ALL BELONGINGS IN HAND. PT TO TAKE LYFT HOME. Addendum: 02/15/19 at 1053 by Jazmin Kay RN Amended: Links added.
[2019-02-15] MEDS ORDERED: ciprofloxacin 250mg tablet PO SCH (20:00)
== END 2019-02-15 10:46 | disposition home or self-care (01) | DRG 242 ==
LOC: ER 22:30 → SUR 3N 02-13 00:04 → EDBEDREQ 02-13 00:28 → SUR 3N 02-13 01:21
PROVIDERS: ADMIT Internal Medicine; ATTEND Internal Medicine
PROC: 0DJ08ZZ Inspection of Upper Intestinal Tract, Via Natural or Artificial Opening Endoscopic (ICD-10-PCS; principal; 2019-02-13)
DX: K22.11 Ulcer of esophagus with bleeding (principal); D61.818 Other pancytopenia; I85.00 Esophageal varices without bleeding; K76.6 Portal hypertension; N18.3 Chronic kidney disease, stage 3 (moderate); D62 Acute posthemorrhagic anemia; G62.9 Polyneuropathy, unspecified; K22.70 Barrett's esophagus without dysplasia; R45.851 Suicidal ideations; K31.89 Other diseases of stomach and duodenum; Z87.01 Personal history of pneumonia (recurrent); B19.20 Unspecified viral hepatitis C without hepatic coma; F32.9 Major depressive disorder, single episode, unspecified; Z90.81 Acquired absence of spleen; K74.60 Unspecified cirrhosis of liver; N39.0 Urinary tract infection, site not specified; Z85.6 Personal history of leukemia; Z87.11 Personal history of peptic ulcer disease
CPT/HCPCS: 36415; 43235; 71045; 80048; 80053; 81001; 85025; 85027; 85610; 85730; 86870; 86885; 86900; 86901; 86902; 86905; 87077; 87081; 87088; 87186; 93005; 96374; 99152; 99285; A4620; C9113; G0378; J2250; J2354; J3010; J7030; J7040; J7050

== ENCOUNTER 2019-07-09 01:24 | Inpatient (IN) | payer MEDICAID ==
[~2019-07-09] VITALS: Ht 190.5 cm; Wt 86.3 kg
[2019-07-09] VITALS (17 sets, daily range): BP systolic 133–157; BP diastolic 72–86
[~2019-07-09 01:24] MED LIST changes: -EPOE10003 IV; -TAMS0.4C32 PO
[2019-07-09 02:22] LABS: ALANINE AMINOTRANSFERASE 70 U/L (12-78); ALBUMIN 3.4 G/DL (3.4-5.0); ALBUMIN/GLOBULIN RATIO 0.7 (1.1-1.5); ALKALINE PHOSPHATASE 124 IU/L (46-116); ANION GAP 13 (8-16); ASPARTATE AMINO TRANSFERASE 159 U/L (10-37); BILIRUBIN,TOTAL 1.7 MG/DL (0.1-1.0); BLOOD UREA NITROGEN 23 MG/DL (7-18); BUN/CREATININE RATIO 12.6 (5.4-32.0); CALCIUM 8.3 MG/DL (8.5-10.1); CHLORIDE 105 MMOL/L (99-107); CREATININE 1.83 MG/DL (0.60-1.10); ETHANOL 0.196 GM/DL (0.0-0.010); GLUCOSE 112 MG/DL (70-104); LIPASE 612 U/L (73-393); POTASSIUM 3.6 MMOL/L (3.5-5.1); SODIUM 142 MMOL/L (135-145); TOTAL CARBON DIOXIDE 24.1 MMOL/L (24-32); TOTAL PROTEIN 8.3 G/DL (6.4-8.2); eGFR 38 ML/MIN
[2019-07-09] MEDS ORDERED: pantoprazole 40 MG vial IV ONE (02:35)
[2019-07-09] MEDS ORDERED: phytonadione inj. 5 MG in normal saline 100ml IV soln 100 ML IV ONE (02:35)
[2019-07-09 03:04] LABS: BASOPHILS % (AUTO) 2.2 % (0-1); EOSINOPHILS # (AUTO) 0.1 X10'3 (0-0.9); EOSINOPHILS % (AUTO) 3.7 % (0-6); HEMATOCRIT 28.7 % (42.0-52.0); HEMOGLOBIN 9.2 g/dl (14.0-17.9); LYMPHOCYTES # (AUTO) 0.4 X10'3 (1.1-4.8); MEAN CORPUSCULAR HEMOGLOBIN 25.1 PG (27.0-31.0); MEAN CORPUSCULAR VOLUME 78.4 FL (78-98); MEAN PLATELET VOLUME 9.6 FL (7.4-10.4); MONOCYTES # (AUTO) 0.2 X10'3 (0-0.9); MONOCYTES % (AUTO) 11.5 % (2-12); NEUTROPHILS # (AUTO) 1.2 X10'3 (1.8-7.7); NEUTROPHILS % (AUTO) 60.6 % (42-75); RED BLOOD COUNT 3.65 X10'6 (4.70-6.10); RED CELL DISTRIBUTION WIDTH 21.2 % (11.5-14.5); WHITE BLOOD COUNT 1.9 X10'3 (4.5-11.0)
[2019-07-09 03:11] LABS: PLATELET COUNT 20 X10'3 (140-440)
--- NOTE | 2019-07-09 03:13 | NUR ---
Patient is resting comfortably in bed. Warm blankets provided and lights dimmed. Patient updated on POC. No requests at this time.
[2019-07-09] MEDS ORDERED: octreotide inj. 1,250 MCG in normal saline 250ml IV soln 250 ML IV ONE (03:29)
[2019-07-09] MEDS ORDERED: IRON150C5 PO ×2 (03:40→06:34)
[2019-07-09 04:02] LABS: HEMATOCRIT 25.1 % (42.0-52.0); HEMOGLOBIN 8.1 g/dl (14.0-17.9); MEAN CORPUSCULAR HEMOGLOBIN 25.2 PG (27.0-31.0); MEAN CORPUSCULAR HGB CONC 32.2 g/dL (33.0-36.5); MEAN CORPUSCULAR VOLUME 78.2 FL (78-98); MEAN PLATELET VOLUME 9.6 FL (7.4-10.4); RED BLOOD COUNT 3.21 X10'6 (4.70-6.10); WHITE BLOOD COUNT 1.1 X10'3 (4.5-11.0)
[2019-07-09 04:06] LABS: TOTAL CELLS COUNTED 100
[2019-07-09 04:09] LABS: ANISOCYTOSIS 3+; HYPOCHROMASIA 1+; MICROCYTOSIS 1+; PLATELET ESTIMATE DECREASED
[2019-07-09 04:14] LABS: PLATELET COUNT 16 X10'3 (140-440)
[2019-07-09] MEDS ORDERED: ondansetron/PF 4mg/2ml inj IV PRN (04:30)
[2019-07-09] MEDS ORDERED: LORazepam 2 mg/ml vial IV PRN (04:35)
[2019-07-09] MEDS ORDERED: thiamine inj. 100 MG in normal saline 100ml IV soln 100 ML IV ONE (04:35)
[2019-07-09] MEDS ORDERED: thiamine 100mg/ml 2ml inj. IV ONE (04:40)
--- NOTE | 2019-07-09 05:15 | NUR ---
Patient in room PCU 3020. I have received report from Flavio MONTANO and had the opportunity to ask questions and assume patient care.
--- NOTE | 2019-07-09 06:00 | NUR ---
Patient in room PCU 3020. I have received report from Ulises MONTANO and had the opportunity to ask questions and assume patient care.
--- NOTE | 2019-07-09 06:26 | NUR ---
Per pharmacist, Sandostatin and protonix can be run together.
[2019-07-09] MEDS ORDERED: FLUT16SP26 IH (06:33)
[2019-07-09] MEDS: normal saline 1000ml 1,000 ML IV SCH ×3 (06:42→17:48)
[2019-07-09] MEDS: pantoprazole 40MG/NS 100ML BAG 100 ML IV SCH ×2 (06:43→11:05)
--- NOTE | 2019-07-09 07:00 | NUR ---
Problems reprioritized. Patient report given, questions answered & plan of care reviewed with Rosa MONTANO.
[2019-07-09] MEDS: propranolol 10mg tablet PO SCH ×3 (09:54→22:17)
[2019-07-09] MEDS ORDERED: LIDOcaine Viscous 15ml cup ONE ×2 (11:48→11:51)
[2019-07-09] MEDS ORDERED: fentaNYL/PF 50MCG/1 ML 2ML syringe ONE ×2 (11:48→11:49)
[2019-07-09] MEDS ORDERED: MIDAZolam 5mg/5ml vial ONE (11:48)
[2019-07-09] MEDS ORDERED: diphenhydrAMINE 50 mg/ml inj ONE (11:48)
[2019-07-09 16:12] LABS: BASOPHILS # (AUTO) 0.1 X10'3 (0-0.2); EOSINOPHILS # (AUTO) 0.1 X10'3 (0-0.9); MEAN CORPUSCULAR VOLUME 79.5 FL (78-98); MONOCYTES # (AUTO) 0.2 X10'3 (0-0.9); NEUTROPHILS # (AUTO) 1.1 X10'3 (1.8-7.7); WHITE BLOOD COUNT 1.6 X10'3 (4.5-11.0)
[2019-07-09 16:14] LABS: BASOPHILS % (AUTO) 3.8 % (0-1); EOSINOPHILS % (AUTO) 5.3 % (0-6); LYMPHOCYTES # (AUTO) 0.2 X10'3 (1.1-4.8); LYMPHOCYTES % (AUTO) 10.5 % (21-51); MEAN CORPUSCULAR HEMOGLOBIN 25.4 PG (27.0-31.0); MEAN PLATELET VOLUME 7.6 FL (7.4-10.4); MONOCYTES % (AUTO) 13.9 % (2-12); NEUTROPHILS % (AUTO) 66.5 % (42-75); RED BLOOD COUNT 3.14 X10'6 (4.70-6.10); RED CELL DISTRIBUTION WIDTH 21.3 % (11.5-14.5)
[2019-07-09 16:42] LABS: PLATELET COUNT 41 X10'3 (140-440)
--- NOTE | 2019-07-09 16:57 | NUR ---
Paged regarding platelet count PAGER ID: [phone] MESSAGE: [phone] Platelet count came back at 41. Blood bank has restocked on O+ platelets. Would you like to transfuse? Shakeel [phone]
[2019-07-09] MEDS: pantoprazole 40mg Tablet.DR PO SCH (17:49)
--- NOTE | 2019-07-09 18:45 | NUR ---
Problems reprioritized. Patient report given, questions answered & plan of care reviewed with Waleska MONTANO.
[2019-07-10] VITALS (10 sets, daily range): BP systolic 131–153; BP diastolic 70–77
[2019-07-10] MEDS: normal saline 1000ml 1,000 ML IV SCH (03:44)
[2019-07-10] MEDS ORDERED: octreotide inj. 1,250 MCG in normal saline 250ml IV soln 243.75 ML IV SCH (05:00)
[2019-07-10 06:26] LABS: HEMOGLOBIN 8.4 g/dl (14.0-17.9); WHITE BLOOD COUNT 1.7 X10'3 (4.5-11.0)
[2019-07-10 06:28] LABS: HEMATOCRIT 26.1 % (42.0-52.0); MEAN CORPUSCULAR HEMOGLOBIN 25.3 PG (27.0-31.0); MEAN CORPUSCULAR HGB CONC 32.4 g/dL (33.0-36.5); MEAN CORPUSCULAR VOLUME 78.2 FL (78-98); MEAN PLATELET VOLUME 8.3 FL (7.4-10.4); RED BLOOD COUNT 3.33 X10'6 (4.70-6.10); RED CELL DISTRIBUTION WIDTH 21.6 % (11.5-14.5)
--- NOTE | 2019-07-10 06:41 | NUR ---
Patient in room PCU 3020. I have received report from DUSTY Galeano and had the opportunity to ask questions and assume patient care. Patient currently resting in bed, bed locked and low, call locked and low, call light in reach, no acute distress.
[2019-07-10 06:44] LABS: ALANINE AMINOTRANSFERASE 51 U/L (12-78); ALBUMIN 3.2 G/DL (3.4-5.0); ALBUMIN/GLOBULIN RATIO 0.8 (1.1-1.5); ALKALINE PHOSPHATASE 112 IU/L (46-116); ANION GAP 5 (8-16); ASPARTATE AMINO TRANSFERASE 84 U/L (10-37); BILIRUBIN,TOTAL 2.9 MG/DL (0.1-1.0); BLOOD UREA NITROGEN 29 MG/DL (7-18); BUN/CREATININE RATIO 17.2 (5.4-32.0); CALCIUM 8.9 MG/DL (8.5-10.1); CHLORIDE 102 MMOL/L (99-107); CREATININE 1.69 MG/DL (0.60-1.10); GLUCOSE 117 MG/DL (70-104); SODIUM 135 MMOL/L (135-145); TOTAL CARBON DIOXIDE 28.5 MMOL/L (24-32); TOTAL PROTEIN 7.4 G/DL (6.4-8.2); eGFR 42 ML/MIN
[2019-07-10 06:54] LABS: PLATELET COUNT 36 X10'3 (140-440)
[2019-07-10 07:07] LABS: PLATELET ESTIMATE DECREASED; TOTAL CELLS COUNTED 100
[2019-07-10 07:08] LABS: ANISOCYTOSIS 3+; HYPOCHROMASIA 1+; MICROCYTOSIS 1+; POIKILOCYTOSIS 1+; POLYCHROMASIA 1+
[2019-07-10] MEDS: pantoprazole 40mg Tablet.DR PO SCH (07:19)
[2019-07-10] MEDS: propranolol 10mg tablet PO SCH ×2 (07:19→12:32)
--- NOTE | 2019-07-10 07:49 | NUR ---
PAGER ID: [phone] MESSAGE: DUSTY Jay, Ext [phone], [id number], aaron Rahman, critical values: plt 36 and +MRSA in the nares
[2019-07-10] MEDS ORDERED: thiamine 100mg/ml 2ml inj. IV ONE (09:15)
[2019-07-10] MEDS ORDERED: haloperidol lactate 5mg/ml inj IM PRN (09:15)
[2019-07-10] MEDS ORDERED: haloperidol 5mg tablet PO PRN (09:15)
[2019-07-10] MEDS ORDERED: dextrose 50%-water 50ml dispensing syringe IV PRN (09:15)
[2019-07-10] MEDS ORDERED: LORazepam 1 MG tablet PO PRN (09:15)
[2019-07-10] MEDS ORDERED: LORazepam 2 mg/ml vial IV PRN (09:15)
--- NOTE | 2019-07-10 09:54 | NUR ---
Problems reprioritized. Patient report given, questions answered & plan of care reviewed with DUSTY Dorsey. Patient resting in bed, stable at time of hand off
--- NOTE | 2019-07-10 09:59 | NUR ---
Patient in room PCU 3020. I have received report from Misty MONTANO and had the opportunity to ask questions and assume patient care.
--- NOTE | 2019-07-10 13:24 | NUR ---
Paged Dr. Ratliff re: promotional table spacer PAGER ID: [phone] MESSAGE: Sunita MONTANO [phone] Angelica Rahman, platelets transfused and thiamine administered, pt wants to be discharged, please advise, thanks!
[2019-07-10] MEDS ORDERED: PROP10TA10 PO (14:02)
--- NOTE | 2019-07-10 14:50 | NUR ---
Malnutrition consult: Current pt stated wt is -6 kg since most recent scaled wt of 92.55 kg taken November 2017, this is non-significant wt loss of 6.8% in greater than a year and a half. Pt currently on neutropenic diet documented with 75-100% PO intake meeting nutrient needs. Pt historically eats 75-100% during admissions per records. Pt with no decrease in muscle strength or edema. Pt currently does not meet criteria for malnutrition. Cardiac diet education consult: No lipid panel available and pt with no documented heart related PMH, cardiac diet education not warranted. Pt appears to be pending discharge at this time. Will continue to follow. Addendum: 07/10/19 at [address] Amended: Links added.
--- NOTE | 2019-07-10 15:50 | NUR ---
Pt stable for discharge per MD, discharge packet reviewed, all questions answered, new prescriptions called in to [facility] in [place], PIV discontinued, Tele monitor discontinued, all belongings collected and sent with the patient, left the unit at 1550.
[2019-07-11] MEDS ORDERED: LORazepam 2 mg/ml vial IV PRN (04:35)
[2019-07-13] MEDS ORDERED: LORazepam 2 mg/ml vial IV PRN (04:35)
== END 2019-07-10 16:30 | disposition home or self-care (01) | DRG 253 ==
LOC: ER 01:24 → PCU 3S 04:29 → CMPBEDREQ 05:20
PROVIDERS: ADMIT Internal Medicine; ATTEND Internal Medicine
PROC: 0DJ08ZZ Inspection of Upper Intestinal Tract, Via Natural or Artificial Opening Endoscopic (ICD-10-PCS; principal; 2019-07-09)
PROC: 30233R1 Transfusion of Nonautologous Platelets into Peripheral Vein, Percutaneous Approach (ICD-10-PCS; 2019-07-09)
PROC: 30233R1 Transfusion of Nonautologous Platelets into Peripheral Vein, Percutaneous Approach (ICD-10-PCS; 2019-07-10)
DX: K92.2 Gastrointestinal hemorrhage, unspecified (principal); K85.20 Alcohol induced acute pancreatitis without necrosis or infection; D69.1 Qualitative platelet defects; Z86.74 Personal history of sudden cardiac arrest; K31.89 Other diseases of stomach and duodenum; E78.00 Pure hypercholesterolemia, unspecified; R04.0 Epistaxis; F10.288 Alcohol dependence with other alcohol-induced disorder; K22.70 Barrett's esophagus without dysplasia; K74.60 Unspecified cirrhosis of liver; I85.00 Esophageal varices without bleeding; N18.9 Chronic kidney disease, unspecified; Z90.81 Acquired absence of spleen; Z95.1 Presence of aortocoronary bypass graft; Z87.11 Personal history of peptic ulcer disease; Z86.73 Personal history of transient ischemic attack (TIA), and cerebral infarction without residual deficits; Z85.6 Personal history of leukemia; Z79.4 Long term (current) use of insulin
CPT/HCPCS: 36415; 36430; 43235; 80053; 80320; 82140; 83690; 83735; 85025; 85027; 86870; 86885; 86900; 86901; 86902; 86905; 86922; 87081; 93005; 96365; 96375; 99152; 99285; A4620; C9113; G0378; J1200; J2060; J2250; J2354; J3010; J3411; J3430; J7030; J7040; J7050; P9035

== ENCOUNTER 2019-12-13 12:03 | Inpatient (IN) | payer MEDICAID ==
[2019-12-13] VITALS (7 sets, daily range): BP systolic 127–144; BP diastolic 62–74
[~2019-12-13] VITALS: Ht 190.5 cm; Wt 86.4 kg
[~2019-12-13 12:03] MED LIST changes: +FLUT16SP26 IH; +PROP10TA10 PO
[2019-12-13] MEDS ORDERED: normal saline 1000ml 1,000 ML IV ONE (12:57)
[2019-12-13] MEDS ORDERED: pantoprazole 40MG/NS 100ML BAG 100 ML IV ONE (13:00)
[2019-12-13] MEDS ORDERED: LORazepam 2 mg/ml vial IV ONE (13:00)
[2019-12-13] MEDS ORDERED: acetaminophen 325mg tablet PO PRN ×2 (14:20)
[2019-12-13] MEDS ORDERED: magnesium 4gm in 100ml NS 100 ML IV PRN (14:20)
[2019-12-13] MEDS ORDERED: magnesium Cl slow-release 64mg tablet PO PRN (14:20)
[2019-12-13] MEDS ORDERED: magnesium 2GM in 50ml NS 50 ML IV PRN (14:20)
[2019-12-13] MEDS ORDERED: LORazepam 2 mg/ml vial IV PRN (14:20)
[2019-12-13] MEDS ORDERED: ondansetron/PF 4mg/2ml inj IV PRN (14:20)
[2019-12-13] MEDS ORDERED: potassium Cl 20 mEq SR tablet PO PRN ×2 (14:20)
[2019-12-13] MEDS ORDERED: potassium CL 10mEq/100ml bag 100 ML IV PRN ×2 (14:20)
[2019-12-13] MEDS ORDERED: LORazepam 1 MG tablet PO PRN (14:20)
[2019-12-13] MEDS ORDERED: phytonadione inj. 10 MG in normal saline 100ml IV soln 99 ML IV ONE (14:25)
[2019-12-13 15:16] LABS: PRE OP PARTIAL THROMB. TIME 29 SECONDS (22-32)
[2019-12-13] MEDS: normal saline 1000ml 1,000 ML IV SCH (15:44)
[2019-12-13] MEDS: OCTREOTIDE 1,250 MCG in NS 250ml IV.SOLN IV SCH (15:44)
[2019-12-13] MEDS ORDERED: PANT-47 PO (16:29)
[2019-12-13] MEDS ORDERED: THIA50TA10 PO (16:29)
[2019-12-13] MEDS ORDERED: dextrose ORAL solution 15 GM/59 ML bottle PO PRN ×2 (17:35)
[2019-12-13] MEDS ORDERED: glucagon, human recombinant 1mg kit SUBCUT PRN (17:35)
[2019-12-13] MEDS ORDERED: dextrose 50%-water 50ml dispensing syringe IV PRN ×2 (17:35)
--- NOTE | 2019-12-13 18:12 | NUR ---
Problems reprioritized. Patient report given, questions answered & plan of care reviewed with DUSTY Downs.
--- NOTE | 2019-12-13 18:13 | NUR ---
Patient in room PCU 3019. I have received report from Gage MONTANO and had the opportunity to ask questions and assume patient care.
[2019-12-13] MEDS: pantoprazole 40MG/NS 100ML BAG 100 ML IV SCH ×2 (18:53→23:37)
[2019-12-13] MEDS: K and/or MAG REPLACEMENT MC SCH (19:08)
[2019-12-14] VITALS (11 sets, daily range): BP systolic 108–157; BP diastolic 68–88
[2019-12-14] MEDS: pantoprazole 40MG/NS 100ML BAG 100 ML IV SCH ×4 (05:16→21:00)
--- NOTE | 2019-12-14 06:38 | NUR ---
Problems reprioritized. Patient report given, questions answered & plan of care reviewed with Michelle MONTANO.
[2019-12-14 07:03] LABS: MONOCYTES # (AUTO) 0.2 X10'3 (0-0.9); NEUTROPHILS # (AUTO) 0.9 X10'3 (1.8-7.7)
[2019-12-14 07:07] LABS: EOSINOPHILS % (AUTO) 3.5 % (0-6); HEMATOCRIT 23.7 % (42.0-52.0); HEMOGLOBIN 7.7 g/dl (14.0-17.9); LYMPHOCYTES # (AUTO) 0.1 X10'3 (1.1-4.8); LYMPHOCYTES % (AUTO) 9.7 % (21-51); MEAN CORPUSCULAR HEMOGLOBIN 26.7 PG (27.0-31.0); MEAN CORPUSCULAR HGB CONC 32.4 g/dL (33.0-36.5); MEAN CORPUSCULAR VOLUME 82.3 FL (78-98); MEAN PLATELET VOLUME 8.5 FL (7.4-10.4); MONOCYTES % (AUTO) 17.6 % (2-12); NEUTROPHILS % (AUTO) 68.2 % (42-75); RED BLOOD COUNT 2.87 X10'6 (4.70-6.10); RED CELL DISTRIBUTION WIDTH 21.4 % (11.5-14.5); WHITE BLOOD COUNT 1.4 X10'3 (4.5-11.0)
[2019-12-14] MEDS: folic acid 1mg tablet PO SCH (07:14)
[2019-12-14] MEDS: thiamine 100mg tablet PO SCH (07:14)
[2019-12-14] MEDS: multivitamins, therapeutics tablet PO SCH (07:14)
[2019-12-14] MEDS: K and/or MAG REPLACEMENT MC SCH ×2 (07:14→20:00)
[2019-12-14 07:16] LABS: ALANINE AMINOTRANSFERASE 43 U/L (12-78); ALBUMIN 3.1 G/DL (3.4-5.0); ALBUMIN/GLOBULIN RATIO 0.7 (1.1-1.5); ALKALINE PHOSPHATASE 117 IU/L (46-116); ANION GAP 11 (8-16); ASPARTATE AMINO TRANSFERASE 77 U/L (10-37); BILIRUBIN,TOTAL 3.4 MG/DL (0.1-1.0); BLOOD UREA NITROGEN 17 MG/DL (7-18); BUN/CREATININE RATIO 9.5 (5.4-32.0); CALCIUM 8.5 MG/DL (8.5-10.1); CHLORIDE 101 MMOL/L (99-107); CREATININE 1.79 MG/DL (0.60-1.10); GLUCOSE 126 MG/DL (70-104); MAGNESIUM 1.9 MG/DL (1.5-2.4); POTASSIUM 4.2 MMOL/L (3.5-5.1); SODIUM 137 MMOL/L (135-145); TOTAL CARBON DIOXIDE 24.8 MMOL/L (24-32); TOTAL PROTEIN 7.4 G/DL (6.4-8.2); eGFR 39 ML/MIN
[2019-12-14 08:36] LABS: NUCLEATED RED BLOOD CELLS 1 /100WBC (0-0); TOTAL CELLS COUNTED 100
[2019-12-14 08:37] LABS: ANISOCYTOSIS 3+; HYPOCHROMASIA 1+; MICROCYTOSIS 1+; PLATELET ESTIMATE DECREASED
[2019-12-14 08:38] LABS: POLYCHROMASIA 1+
[2019-12-14] MEDS: normal saline 1000ml 1,000 ML IV SCH (09:49)
[2019-12-14] MEDS ORDERED: MIDAZolam 5mg/5ml vial ONE (13:32)
[2019-12-14] MEDS ORDERED: LIDOcaine Viscous 15ml cup ONE (13:32)
[2019-12-14] MEDS ORDERED: fentaNYL/PF 50MCG/1 ML 2ML syringe ONE (13:32)
--- NOTE | 2019-12-14 18:30 | NUR ---
Patient in room PCU 3019. I have received report from Michelle and had the opportunity to ask questions and assume patient care.
[2019-12-15 02:00] VITALS: BP 133/69
[2019-12-15] MEDS: pantoprazole 40MG/NS 100ML BAG 100 ML IV SCH ×3 (02:08→12:24)
[2019-12-15] MEDS: normal saline 1000ml 1,000 ML IV SCH (05:49)
[2019-12-15 06:00] VITALS: BP 159/92
--- NOTE | 2019-12-15 06:15 | NUR ---
Patient in room PCU 3019. I have received report from DUSTY Downs and had the opportunity to ask questions and assume patient care.
[2019-12-15 06:20] LABS: BASOPHILS % (AUTO) 1.5 % (0-1); EOSINOPHILS # (AUTO) 0.1 X10'3 (0-0.9); EOSINOPHILS % (AUTO) 5.6 % (0-6); HEMATOCRIT 23.8 % (42.0-52.0); HEMOGLOBIN 7.6 g/dl (14.0-17.9); LYMPHOCYTES # (AUTO) 0.2 X10'3 (1.1-4.8); LYMPHOCYTES % (AUTO) 12.9 % (21-51); MEAN CORPUSCULAR HEMOGLOBIN 26.6 PG (27.0-31.0); MEAN CORPUSCULAR HGB CONC 31.8 g/dL (33.0-36.5); MEAN CORPUSCULAR VOLUME 83.5 FL (78-98); MEAN PLATELET VOLUME 8.4 FL (7.4-10.4); MONOCYTES # (AUTO) 0.3 X10'3 (0-0.9); MONOCYTES % (AUTO) 17.9 % (2-12); NEUTROPHILS % (AUTO) 62.1 % (42-75); RED BLOOD COUNT 2.85 X10'6 (4.70-6.10); RED CELL DISTRIBUTION WIDTH 21.6 % (11.5-14.5); WHITE BLOOD COUNT 1.7 X10'3 (4.5-11.0)
--- NOTE | 2019-12-15 06:25 | NUR ---
Problems reprioritized. Patient report given, questions answered & plan of care reviewed with Misty MONTANO.
[2019-12-15 06:40] LABS: ALANINE AMINOTRANSFERASE 34 U/L (12-78); ALBUMIN/GLOBULIN RATIO 0.8 (1.1-1.5); ALKALINE PHOSPHATASE 105 IU/L (46-116); ANION GAP 10 (8-16); ASPARTATE AMINO TRANSFERASE 60 U/L (10-37); BILIRUBIN,TOTAL 3.6 MG/DL (0.1-1.0); BLOOD UREA NITROGEN 15 MG/DL (7-18); CALCIUM 8.6 MG/DL (8.5-10.1); CHLORIDE 102 MMOL/L (99-107); CREATININE 1.87 MG/DL (0.60-1.10); GLUCOSE 133 MG/DL (70-104); MAGNESIUM 1.7 MG/DL (1.5-2.4); POTASSIUM 3.5 MMOL/L (3.5-5.1); SODIUM 137 MMOL/L (135-145); TOTAL CARBON DIOXIDE 25.2 MMOL/L (24-32); eGFR 37 ML/MIN
[2019-12-15 06:41] LABS: PLATELET COUNT 32 X10'3 (140-440)
--- NOTE | 2019-12-15 06:51 | NUR ---
Paged Dr Rahman PAGER ID: [phone] MESSAGE: Re: Anthony Rahman [id number] Critical PLT 32, down from 35. Thank you Misty [phone]
[2019-12-15 07:38] LABS: ANISOCYTOSIS 3+; PLATELET ESTIMATE DECREASED; TOTAL CELLS COUNTED 100
[2019-12-15] MEDS: K and/or MAG REPLACEMENT MC SCH (08:00)
[2019-12-15 08:47] LABS: PLATELET COUNT 35 X10'3 (140-440)
[2019-12-15] MEDS: multivitamins, therapeutics tablet PO SCH (09:15)
[2019-12-15] MEDS: thiamine 100mg tablet PO SCH (09:15)
[2019-12-15] MEDS: folic acid 1mg tablet PO SCH (09:15)
[2019-12-15 11:00] VITALS: BP 155/92
[2019-12-15 15:00] VITALS: BP 150/76
[2019-12-15] MEDS: OCTREOTIDE 1,250 MCG in NS 250ml IV.SOLN IV SCH (15:06)
--- NOTE | 2019-12-15 16:05 | NUR ---
Patient left AMA. Occurrence report complete. Dr Douglas was paged. In previous rounding, pt showed no sign of wanting to leave. He did ask to keep his clothes on, but when I asked him if he had intentions on going anywhere, he said no. Pt wasn't restless or agitated.
--- NOTE | 2019-12-15 16:37 | NUR ---
Paged Dr Douglas PAGER ID: [phone] MESSAGE: Re: Anthony Rahman [phone] Pt left AMA without signing paperwork. Thanks Misty [phone]
== END 2019-12-15 16:05 | disposition left against medical advice (07) | DRG 253 ==
LOC: ER 12:03 → ED HOLD 14:17 → EDBEDREQ 15:11 → PCU 3S 16:04
PROVIDERS: ADMIT Internal Medicine; ATTEND Internal Medicine
PROC: 30233R1 Transfusion of Nonautologous Platelets into Peripheral Vein, Percutaneous Approach (ICD-10-PCS; 2019-12-13)
PROC: 0DJ08ZZ Inspection of Upper Intestinal Tract, Via Natural or Artificial Opening Endoscopic (ICD-10-PCS; principal; 2019-12-14)
DX: K92.2 Gastrointestinal hemorrhage, unspecified (principal); D61.818 Other pancytopenia; N17.9 Acute kidney failure, unspecified; K76.6 Portal hypertension; Z86.74 Personal history of sudden cardiac arrest; N18.3 Chronic kidney disease, stage 3 (moderate); K74.60 Unspecified cirrhosis of liver; G62.9 Polyneuropathy, unspecified; K21.9 Gastro-esophageal reflux disease without esophagitis; Z53.29 Procedure and treatment not carried out because of patient's decision for other reasons; Z87.01 Personal history of pneumonia (recurrent); Z87.11 Personal history of peptic ulcer disease; Z90.81 Acquired absence of spleen; Z95.1 Presence of aortocoronary bypass graft; Z87.440 Personal history of urinary (tract) infections; I25.10 Atherosclerotic heart disease of native coronary artery without angina pectoris; F10.20 Alcohol dependence, uncomplicated; D64.9 Anemia, unspecified; F32.9 Major depressive disorder, single episode, unspecified; I85.00 Esophageal varices without bleeding; K31.89 Other diseases of stomach and duodenum
CPT/HCPCS: 36415; 36430; 43235; 71045; 80053; 82948; 83735; 85025; 85610; 85730; 86870; 86885; 86900; 86901; 86902; 87081; 93005; 96374; 96375; 99152; 99285; A4620; C9113; G0378; J2060; J2250; J2354; J3010; J3430; J7030; J7040; J7050; P9035

== ENCOUNTER 2019-12-23 01:18 | Inpatient (IN) | payer MEDICAID ==
[2019-12-23] VITALS (26 sets, daily range): BP systolic 8–138; BP diastolic 35–64
[~2019-12-23] VITALS: Ht 190.5 cm; Wt 95.5 kg
[~2019-12-23 01:18] MED LIST changes: -FLUT16SP26 IH; +PANT-47 PO; -PANT40TA4 PO; -PROP10TA10 PO; +THIA50TA10 PO
--- NOTE | 2019-12-23 01:30 | NUR ---
PATIENT ARRIVES VIA FLIGHT TEAM - DIRECT ADM IT. ARRIVES ON LEVOPHED - TRANSFERRED OVER TO [facility] UG/KG/MIN, STARTED ON 0.1 UG/KG/MIN USING 85 KG. FLIGHT TEAM USED 8 UG/MIN UPON ARRIVAL. VSS, PATIENT IS AWAKE ALERT AND ORIENTED. MOVES X 4, COOPERATIVE, NOTED THAT PATIENT IS MOANING WHEN REPOSITIONING AND TURNING. PER PATIENT HE HAS FALLEN MULTIPLE TIMES - AT LEAST 3 - SINCE LEAVING [facility] AMA ON 12/14/19. B/L FOREARMS AND ELBOWS ARE SWOLLEN AND PAINFUL TO PATIENT. POSSIBLE UNIDENTIFIED INJURIES THUS FAR. DRIVER MESSENGER AWARE AND HAS ORDERED XRAYS FOR AM. ALSO B/L FEET AND ANKLES ARE +3 PITTING EDEMA BUT RIGHT ANKLE IS REDDENED AND A BIT MORE PUFFY COMPARED TO LEFT - PATIENT THINKS HE TWISTED HIS ANKLE DURING ONE OF THESE FALLS. I ASKED PATIENT WHY HE WAS FALLING SO MUCH AND ASKED IF HE HAS BEEN DRINKING. HE SAID HE HASNT DRANK ANYTHING FOR A COUPLE WEEKS AND HE THINKS HE WAS FALLING BECAUSE "HE HASNT FELT GOOD". LAST FALL WAS 12/22/2019 "IN A PIZANO PATCH" ??? LARGE PURPLE BRUISE TO LEFT DELTOID, ABRASIONS TO RIGHT BACK AND B/L ARMS WITH MINIMAL ABRASIONS/BRUISING. NO OPEN FRESH AREAS NOTED ANYWHERE ON BODY. BUTTOCKS ARE REDDENED AND BLANCHABLE - HYDROFOAM PLACED. NO RESPIRATORY DISTRESS, NO NAUSEA. SR, NO ECTOPY, BUTLER IN PLACE WITH 25 ML DARK AMANDA URINE IN A URINE BAG UPON ARRIVAL. BAG CHANGED TO A UROMETER FOR PROPER CRITICAL CARE MEASUREMENTS. # 18 PIV TO RIGHT AC - LEVOPHED INFUSING - DRIVER MESSENGER AWARE. LEFT FOREARM PIV PAINFUL TO FLUSH - D/C'D MULTIPLE ATTEMPTS TO PLACE FINALLY PLACE # 20 LEFT WRIST. BOLUS # 4 1L NS (3L NS AT [place]). ALL PROCEDURES EXPLAINED PRIOR TO PERFORMING. ICU ROUTINE EXPLAINED. QUESTIONS ANSWERED TO PATIENTS EXPECTATIONS.
[2019-12-23] MEDS ORDERED: ondansetron/PF 4mg/2ml inj IV PRN (01:35)
[2019-12-23] MEDS ORDERED: potassium Cl 20 mEq SR tablet PO PRN ×2 (01:35)
[2019-12-23] MEDS ORDERED: potassium CL 10mEq/100ml bag 100 ML IV PRN ×2 (01:35)
[2019-12-23] MEDS ORDERED: magnesium hydroxide 30ml (MOM) UD suspension PO PRN (01:35)
[2019-12-23] MEDS ORDERED: morphine 4 MG/ML inj SYRINge IV PRN (01:35)
[2019-12-23] MEDS ORDERED: acetaminophen 325mg tablet PO PRN ×2 (01:35)
[2019-12-23] MEDS: K, MAG and/or Phos replacement - Verify level? MC SCH ×2 (01:35→08:00)
[2019-12-23] MEDS ORDERED: NORepinephrine 8mg/ 250ml NS 250 ML IV PRN (01:52)
[2019-12-23] MEDS: normal saline 1000ml 1,000 ML IV SCH ×2 (02:58→05:16)
[2019-12-23] MEDS: [UNRECOGNIZED DRUG - OTHER] IV SCH ×2 (03:00→04:38)
[2019-12-23] MEDS: SODIUM CHLORIDE IV SCH ×2 (03:00→04:38)
[2019-12-23] MEDS: VANCOMYCIN IV SCH ×2 (03:00→04:38)
[2019-12-23 04:26] LABS: BASOPHILS # (AUTO) 0.1 X10'3 (0-0.2); BASOPHILS % (AUTO) 0.8 % (0-1); EOSINOPHILS # (AUTO) 0.2 X10'3 (0-0.9); EOSINOPHILS % (AUTO) 1.7 % (0-6); HEMATOCRIT 28.3 % (42.0-52.0); HEMOGLOBIN 8.8 g/dl (14.0-17.9); LYMPHOCYTES % (AUTO) 7.8 % (21-51); MEAN CORPUSCULAR HEMOGLOBIN 26.5 PG (27.0-31.0); MEAN CORPUSCULAR HGB CONC 31.2 g/dL (33.0-36.5); MEAN CORPUSCULAR VOLUME 84.8 FL (78-98); MEAN PLATELET VOLUME 9.6 FL (7.4-10.4); MONOCYTES # (AUTO) 0.9 X10'3 (0-0.9); MONOCYTES % (AUTO) 7.2 % (2-12); NEUTROPHILS # (AUTO) 10.3 X10'3 (1.8-7.7); NEUTROPHILS % (AUTO) 82.5 % (42-75); PLATELET COUNT 102 X10'3 (140-440); RED BLOOD COUNT 3.34 X10'6 (4.70-6.10); RED CELL DISTRIBUTION WIDTH 22.4 % (11.5-14.5); WHITE BLOOD COUNT 12.5 X10'3 (4.5-11.0)
[2019-12-23 04:37] LABS: PARTIAL THROMBOPLASTIN TIME 34 SECONDS (22-32)
[2019-12-23 04:40] LABS: ALANINE AMINOTRANSFERASE 18 U/L (12-78); ALBUMIN 1.7 G/DL (3.4-5.0); ALBUMIN/GLOBULIN RATIO 0.4 (1.1-1.5); ALKALINE PHOSPHATASE 38 IU/L (46-116); ANION GAP 17 (8-16); ASPARTATE AMINO TRANSFERASE 49 U/L (10-37); BLOOD UREA NITROGEN 52 MG/DL (7-18); BUN/CREATININE RATIO 14.7 (5.4-32.0); CALCIUM 7.9 MG/DL (8.5-10.1); CHLORIDE 103 MMOL/L (99-107); CREATININE 3.54 MG/DL (0.60-1.10); GLUCOSE 125 MG/DL (70-104); MAGNESIUM 1.4 MG/DL (1.5-2.4); POTASSIUM 3.5 MMOL/L (3.5-5.1); SODIUM 134 MMOL/L (135-145); TOTAL PROTEIN 5.5 G/DL (6.4-8.2); eGFR 18 ML/MIN
[2019-12-23 04:42] LABS: ANISOCYTOSIS 3+; PLATELET ESTIMATE DECREASED
[2019-12-23 04:47] LABS: TOTAL CARBON DIOXIDE 14.2 MMOL/L (24-32)
[2019-12-23 04:48] LABS: LACTIC SEPSIS 6.7 MMOL/L (0.4-2.0)
[2019-12-23 04:52] LABS: HYPOCHROMASIA 2+
[2019-12-23 04:53] LABS: POLYCHROMASIA 1+
--- NOTE | 2019-12-23 06:30 | NUR ---
RECEIVED REPORT FOR THIS PATIENT And .assumed care
[2019-12-23] MEDS: pantoprazole 40mg Tablet.DR PO SCH (07:33)
[2019-12-23] MEDS: piperacillin/tazo 3.375gm/50ml 50 ML IV SCH ×2 (07:37→16:27)
[2019-12-23] MEDS ORDERED: magnesium Cl slow-release 64mg tablet PO PRN (07:45)
[2019-12-23] MEDS ORDERED: magnesium 2GM in 50ml NS 50 ML IV PRN (07:45)
[2019-12-23] MEDS ORDERED: magnesium 4gm in 100ml NS 100 ML IV PRN (07:45)
--- NOTE | 2019-12-23 07:50 | NUR ---
PICC NURSE AT THE BEDSIDE , PER DR MENDEZ REQUEST. PATIENT ABLE TO CONSENT
[2019-12-23] MEDS: K and/or MAG REPLACEMENT MC SCH (08:00)
--- NOTE | 2019-12-23 08:40 | NUR ---
[facility] INFORMATION: REF: [id number] LOT: [id number] EXP: 03/14/2020
[2019-12-23 09:13] LABS: CLARITY,URINE CLOUDY (Clear); COLOR,URINE YELLOW (Yellow); GLUCOSE, URINE 100 mg/dl (Neg); KETONES,URINE TRACE mg/dl (Neg); LEUKOCYTE ESTERASE ,URINE MODERATE (Neg); NITRITES, URINE POSITIVE (Neg); OCCULT BLOOD,URINE LARGE (Neg); PROTEIN,URINE 100 mg/dl (Neg)
[2019-12-23 09:16] LABS: UA COLLECTION TYPE FOLEY CATH
[2019-12-23 09:19] LABS: WBC,URINE TNTC /HPF (0-4)
[2019-12-23 09:20] LABS: RBC,URINE 50-100 /HPF (0-2)
[2019-12-23 09:22] LABS: BACTERIA,URINE 4+ /HPF (Neg); SQUAMOUS EPITHELIAL CELL,UR FEW /LPF (FEW)
[2019-12-23] MEDS ORDERED: thiamine 100mg/ml 2ml inj. IV ONE (09:30)
[2019-12-23] MEDS: multivitamins, therapeutics tablet PO SCH (10:11)
[2019-12-23] MEDS: sodium bicarbonate (8.4%) inj. 150 MEQ in dextrose 5%-water 1,000 ML IV SCH ×2 (11:22→22:16)
--- NOTE | 2019-12-23 14:07 | NUR ---
patient presents with UTI, sepsis, chronic liver cirrhosis, ANGY on CKD, urine output "dismal," reports quit drinking 3 weeks ago all per MD note Receiving banana bag in view of EtOH history. Pending PO intake, only 25% of milk documented for breakfast. Will monitor need for ONS if with prolonged poor PO intake. Recommend: 1. continue renal diet 2. bowel care as needed 3. weight per rx 4. monitor need for ONS if with suboptimal PO intake. Addendum: 12/23/19 at [address] Amended: Links added.
[2019-12-23] MEDS: NORepinephrine 8mg/ 250ml NS 250 ML IV PRN (17:20)
--- NOTE | 2019-12-23 18:00 | NUR ---
received patient to room 2016
--- NOTE | 2019-12-23 18:27 | NUR ---
report given to nathan mackey
[2019-12-23] MEDS: lactobacillus rhamnosus 10,000 MMU CELLS/CAPSULE PO SCH (19:46)
[2019-12-24] VITALS (24 sets, daily range): BP systolic 80–118; BP diastolic 39–71
[2019-12-24] MEDS: piperacillin/tazo 3.375gm/50ml 50 ML IV SCH ×4 (00:19→23:51)
[2019-12-24] MEDS ORDERED: LORazepam 2 mg/ml vial IV ONE (02:40)
[2019-12-24] MEDS: VANCOmycin 1250MG/NS 250ml Bag 250 ML IV SCH (02:56)
[2019-12-24] MEDS ORDERED: vancomycin/NS 1 GM ADD-VANTAGE 250 ML IV SCH (03:00)
[2019-12-24 03:07] LABS: BASOPHILS % (AUTO) 0.1 % (0-1); EOSINOPHILS # (AUTO) 0.1 X10'3 (0-0.9); EOSINOPHILS % (AUTO) 0.4 % (0-6); HEMOGLOBIN 7.5 g/dl (14.0-17.9); LYMPHOCYTES # (AUTO) 0.3 X10'3 (1.1-4.8); LYMPHOCYTES % (AUTO) 1.6 % (21-51); MEAN CORPUSCULAR HGB CONC 31.3 g/dL (33.0-36.5); MEAN CORPUSCULAR VOLUME 82.9 FL (78-98); MEAN PLATELET VOLUME 9.3 FL (7.4-10.4); MONOCYTES # (AUTO) 0.8 X10'3 (0-0.9); MONOCYTES % (AUTO) 4.9 % (2-12); NEUTROPHILS # (AUTO) 15.3 X10'3 (1.8-7.7); RED BLOOD COUNT 2.89 X10'6 (4.70-6.10); RED CELL DISTRIBUTION WIDTH 21.6 % (11.5-14.5); WHITE BLOOD COUNT 16.4 X10'3 (4.5-11.0)
[2019-12-24 03:12] LABS: PLATELET COUNT 45 X10'3 (140-440)
[2019-12-24 03:22] LABS: ALANINE AMINOTRANSFERASE 23 U/L (12-78); ALBUMIN 1.4 G/DL (3.4-5.0); ALKALINE PHOSPHATASE 18 IU/L (46-116); ANION GAP 13 (8-16); ASPARTATE AMINO TRANSFERASE 45 U/L (10-37); BLOOD UREA NITROGEN 72 MG/DL (7-18); BUN/CREATININE RATIO 18.3 (5.4-32.0); CALCIUM 8.1 MG/DL (8.5-10.1); CHLORIDE 102 MMOL/L (99-107); CREATININE 3.93 MG/DL (0.60-1.10); GLUCOSE 182 MG/DL (70-104); MAGNESIUM 1.5 MG/DL (1.5-2.4); POTASSIUM 3.6 MMOL/L (3.5-5.1); SODIUM 133 MMOL/L (135-145); TOTAL CARBON DIOXIDE 17.8 MMOL/L (24-32); eGFR 16 ML/MIN
[2019-12-24 03:23] LABS: ALBUMIN/GLOBULIN RATIO 0.4 (1.1-1.5); PHOSPHORUS 1.8 MG/DL (2.3-4.5); TOTAL PROTEIN 4.7 G/DL (6.4-8.2)
[2019-12-24 03:40] LABS: ANISOCYTOSIS 3+; HYPOCHROMASIA 2+; PLATELET ESTIMATE DECREASED; TOTAL CELLS COUNTED 100
[2019-12-24] MEDS: pantoprazole 40mg Tablet.DR PO SCH (07:04)
[2019-12-24] MEDS: lactobacillus rhamnosus 10,000 MMU CELLS/CAPSULE PO SCH ×2 (07:05→19:35)
[2019-12-24] MEDS: multivitamins, therapeutics tablet PO SCH (07:05)
[2019-12-24] MEDS: K and/or MAG REPLACEMENT MC SCH (07:18)
[2019-12-24] MEDS: K, MAG and/or Phos replacement - Verify level? MC SCH (07:19)
--- NOTE | 2019-12-24 09:38 | NUR ---
Order placed for add on test ammonia requested by Dr. Lopez.
[2019-12-24] MEDS: sodium bicarbonate (8.4%) inj. 150 MEQ in dextrose 5%-water 1,000 ML IV SCH ×2 (10:23→19:35)
[2019-12-24] MEDS: folic acid 1mg tablet PO SCH (10:25)
[2019-12-24] MEDS ORDERED: dextrose ORAL solution 15 GM/59 ML bottle PO PRN ×2 (12:35)
[2019-12-24] MEDS ORDERED: glucagon, human recombinant 1mg kit SUBCUT PRN (12:35)
[2019-12-24] MEDS ORDERED: MESSAGE TO PHARMACY PO ONE (12:35)
[2019-12-24] MEDS ORDERED: dextrose 50%-water 50ml dispensing syringe IV PRN (12:35)
[2019-12-24 13:25] LABS: HEMOGLOBIN A1C 4.4 % (4.5-6.2)
[2019-12-24] MEDS: NORepinephrine 8mg/ 250ml NS 250 ML IV PRN (14:31)
--- NOTE | 2019-12-24 15:00 | NUR ---
Patient in room CICU 2014. I have received report from Roma MONTANO and had the opportunity to ask questions and assume patient care.
[2019-12-24] MEDS: insulin Lispro (HumaLOG) vial - multi-dose SQ SCH (15:19)
--- NOTE | 2019-12-24 15:21 | NUR ---
gave report to titi MONTANO
--- NOTE | 2019-12-24 18:19 | NUR ---
Problems reprioritized. Patient report given, questions answered & plan of care reviewed with Ginger MONTANO.
--- NOTE | 2019-12-24 18:30 | NUR ---
Patient in room CICU 2014. I have received report from DUSTY Son and had the opportunity to ask questions and assume patient care.
[2019-12-24] MEDS: insulin glargine (Lantus) pen - multi-dose SQ SCH (21:23)
[2019-12-25] VITALS (24 sets, daily range): BP systolic 66–120; BP diastolic 42–73
[2019-12-25 03:06] LABS: BASOPHILS # (AUTO) 0.1 X10'3 (0-0.2); EOSINOPHILS # (AUTO) 0.2 X10'3 (0-0.9); EOSINOPHILS % (AUTO) 1.1 % (0-6); HEMOGLOBIN 7.8 g/dl (14.0-17.9)
[2019-12-25 03:08] LABS: BASOPHILS % (AUTO) 0.3 % (0-1); HEMATOCRIT 24.5 % (42.0-52.0); LYMPHOCYTES # (AUTO) 0.4 X10'3 (1.1-4.8); LYMPHOCYTES % (AUTO) 2.1 % (21-51); MEAN CORPUSCULAR HEMOGLOBIN 25.8 PG (27.0-31.0); MEAN CORPUSCULAR HGB CONC 31.9 g/dL (33.0-36.5); MEAN CORPUSCULAR VOLUME 80.9 FL (78-98); MEAN PLATELET VOLUME 9.1 FL (7.4-10.4); MONOCYTES # (AUTO) 1.4 X10'3 (0-0.9); MONOCYTES % (AUTO) 7.1 % (2-12); NEUTROPHILS # (AUTO) 17.6 X10'3 (1.8-7.7); NEUTROPHILS % (AUTO) 89.4 % (42-75); RED BLOOD COUNT 3.03 X10'6 (4.70-6.10); RED CELL DISTRIBUTION WIDTH 21.9 % (11.5-14.5); WHITE BLOOD COUNT 19.7 X10'3 (4.5-11.0)
[2019-12-25 03:11] LABS: PLATELET COUNT 29 X10'3 (140-440)
[2019-12-25 03:19] LABS: ALANINE AMINOTRANSFERASE 17 U/L (12-78); ALBUMIN 1.3 G/DL (3.4-5.0); ALKALINE PHOSPHATASE 29 IU/L (46-116); ANION GAP 11 (8-16); ASPARTATE AMINO TRANSFERASE 46 U/L (10-37); BILIRUBIN,TOTAL 5.9 MG/DL (0.1-1.0); BLOOD UREA NITROGEN 89 MG/DL (7-18); BUN/CREATININE RATIO 24.7 (5.4-32.0); CALCIUM 8.3 MG/DL (8.5-10.1); CHLORIDE 101 MMOL/L (99-107); CREATININE 3.61 MG/DL (0.60-1.10); GLUCOSE 185 MG/DL (70-104); MAGNESIUM 1.7 MG/DL (1.5-2.4); SODIUM 138 MMOL/L (135-145); TOTAL CARBON DIOXIDE 25.6 MMOL/L (24-32); eGFR 17 ML/MIN
[2019-12-25] MEDS: VANCOmycin 1250MG/NS 250ml Bag 250 ML IV SCH (03:20)
[2019-12-25 03:24] LABS: ALBUMIN/GLOBULIN RATIO 0.4 (1.1-1.5); PHOSPHORUS 1.8 MG/DL (2.3-4.5); POTASSIUM 3.1 MMOL/L (3.5-5.1); TOTAL PROTEIN 4.9 G/DL (6.4-8.2)
[2019-12-25 03:28] LABS: ANISOCYTOSIS 2+; HYPOCHROMASIA 2+; PLATELET ESTIMATE DECREASED
--- NOTE | 2019-12-25 06:16 | NUR ---
Problems reprioritized. Patient report given, questions answered & plan of care reviewed with DUSTY Brandon.
--- NOTE | 2019-12-25 06:16 | NUR ---
received report from Ginger MONTANO
[2019-12-25] MEDS ORDERED: potassium Cl 20 mEq SR tablet PO PRN (06:30)
[2019-12-25] MEDS: K and/or MAG REPLACEMENT MC SCH (06:41)
[2019-12-25] MEDS: K, MAG and/or Phos replacement - Verify level? MC SCH (06:43)
[2019-12-25] MEDS: multivitamins, therapeutics tablet PO SCH (07:10)
[2019-12-25] MEDS: folic acid 1mg tablet PO SCH (07:10)
[2019-12-25] MEDS: pantoprazole 40mg Tablet.DR PO SCH (07:10)
[2019-12-25] MEDS: lactobacillus rhamnosus 10,000 MMU CELLS/CAPSULE PO SCH ×2 (07:10→19:38)
[2019-12-25] MEDS: morphine 2 MG/ML inj. syringe IV PRN (07:11)
[2019-12-25] MEDS: piperacillin/tazo 3.375gm/50ml 50 ML IV SCH ×3 (07:11→23:23)
[2019-12-25] MEDS ORDERED: K and/or MAG REPLACEMENT MC SCH (08:00)
[2019-12-25] MEDS: sodium bicarbonate (8.4%) inj. 150 MEQ in dextrose 5%-water 1,000 ML IV SCH (08:52)
[2019-12-25] MEDS: insulin Lispro (HumaLOG) vial - multi-dose SQ SCH ×2 (09:34→14:10)
[2019-12-25] MEDS ORDERED: epoetin 20,000 units/ml inj SQ ONE (10:00)
--- NOTE | 2019-12-25 10:08 | NUR ---
discussed h&H with dr bello and he agreed to try epogen due to kidney injury. New order received epogen 20,000 units sq once. also i asked for an iron profile and ferritin level to establish a baseline. patient is on levophed at 0.03 mcg/kg and the goal is to liberate from this drug, new order received for midodrine to help with patients BP.
[2019-12-25] MEDS: midodrine 5mg tablet PO SCH ×2 (11:02→16:25)
--- NOTE | 2019-12-25 11:28 | NUR ---
report given to fabiola MONTANO
--- NOTE | 2019-12-25 11:30 | NUR ---
Patient in room CICU 2014. I have received report from Roma MONTANO and had the opportunity to ask questions and assume patient care. Pt resting, repositioned for comfort, on very low dose of Levophed to keep MAP >60.
[2019-12-25] MEDS: sodium chloride 0.45% 1,000 ML IV SCH ×2 (11:48→22:25)
[2019-12-25] MEDS: potassium Cl 20 mEq SR tablet PO PRN ×2 (12:37→16:25)
--- NOTE | 2019-12-25 18:20 | NUR ---
Problems reprioritized. Patient report given, questions answered & plan of care reviewed with Ginger MONTANO.
--- NOTE | 2019-12-25 18:32 | NUR ---
Patient in room CICU 2014. I have received report from DUSTY Babin and had the opportunity to ask questions and assume patient care.
[2019-12-25] MEDS: insulin glargine (Lantus) pen - multi-dose SQ SCH (20:33)
[2019-12-26] VITALS (28 sets, daily range): BP systolic 78–122; BP diastolic 41–72
[2019-12-26 03:06] LABS: BASOPHILS % (AUTO) 0.2 % (0-1); EOSINOPHILS # (AUTO) 0.4 X10'3 (0-0.9); EOSINOPHILS % (AUTO) 2.2 % (0-6); HEMOGLOBIN 7.9 g/dl (14.0-17.9); LYMPHOCYTES # (AUTO) 0.5 X10'3 (1.1-4.8); LYMPHOCYTES % (AUTO) 2.7 % (21-51); MEAN CORPUSCULAR HEMOGLOBIN 25.7 PG (27.0-31.0); MEAN CORPUSCULAR HGB CONC 31.6 g/dL (33.0-36.5); MEAN CORPUSCULAR VOLUME 81.1 FL (78-98); MEAN PLATELET VOLUME 10.3 FL (7.4-10.4); MONOCYTES # (AUTO) 1.3 X10'3 (0-0.9); NEUTROPHILS % (AUTO) 87.9 % (42-75); RED BLOOD COUNT 3.08 X10'6 (4.70-6.10); RED CELL DISTRIBUTION WIDTH 21.9 % (11.5-14.5); WHITE BLOOD COUNT 18.2 X10'3 (4.5-11.0)
[2019-12-26 03:11] LABS: PLATELET COUNT 19 X10'3 (140-440)
[2019-12-26 03:27] LABS: ALANINE AMINOTRANSFERASE 22 U/L (12-78); ALBUMIN 1.2 G/DL (3.4-5.0); ANION GAP 7 (8-16); ASPARTATE AMINO TRANSFERASE 50 U/L (10-37); BILIRUBIN,TOTAL 7.2 MG/DL (0.1-1.0); BLOOD UREA NITROGEN 101 MG/DL (7-18); BUN/CREATININE RATIO 29.6 (5.4-32.0); CALCIUM 8.3 MG/DL (8.5-10.1); CHLORIDE 103 MMOL/L (99-107); CREATININE 3.41 MG/DL (0.60-1.10); GLUCOSE 132 MG/DL (70-104); MAGNESIUM 1.8 MG/DL (1.5-2.4); SODIUM 137 MMOL/L (135-145); TOTAL CARBON DIOXIDE 26.7 MMOL/L (24-32); eGFR 19 ML/MIN
[2019-12-26 03:30] LABS: ALBUMIN/GLOBULIN RATIO 0.3 (1.1-1.5); PHOSPHORUS 2.3 MG/DL (2.3-4.5); POTASSIUM 3.3 MMOL/L (3.5-5.1); TOTAL PROTEIN 4.9 G/DL (6.4-8.2)
[2019-12-26] MEDS: VANCOmycin 1250MG/NS 250ml Bag 250 ML IV SCH (03:31)
[2019-12-26 03:37] LABS: ANISOCYTOSIS 3+; PLATELET ESTIMATE DECREASED; TOTAL CELLS COUNTED 100
[2019-12-26 03:38] LABS: HYPOCHROMASIA 2+
[2019-12-26 03:39] LABS: ELLIPTOCYTES FEW; TEAR DROP CELLS FEW
[2019-12-26 03:58] LABS: ALKALINE PHOSPHATASE 53 IU/L (46-116)
--- NOTE | 2019-12-26 06:14 | NUR ---
Problems reprioritized. Patient report given, questions answered & plan of care reviewed with DUSTY Adrian.
[2019-12-26] MEDS: sodium chloride 0.45% 1,000 ML IV SCH (07:09)
[2019-12-26] MEDS: potassium Cl 20mEq/100mL bag 100 ML IV PRN ×2 (07:10→10:26)
[2019-12-26] MEDS: piperacillin/tazo 3.375gm/50ml 50 ML IV SCH (07:18)
[2019-12-26] MEDS: folic acid 1mg tablet PO SCH (07:22)
[2019-12-26] MEDS: lactobacillus rhamnosus 10,000 MMU CELLS/CAPSULE PO SCH ×2 (07:22→20:16)
[2019-12-26] MEDS: midodrine 5mg tablet PO SCH ×3 (07:22→16:41)
[2019-12-26] MEDS: multivitamins, therapeutics tablet PO SCH (07:23)
[2019-12-26] MEDS: pantoprazole 40mg Tablet.DR PO SCH (07:23)
[2019-12-26] MEDS: K, MAG and/or Phos replacement - Verify level? MC SCH (07:23)
[2019-12-26] MEDS: sucralfate 1gm/10ml UD suspension PO SCH ×3 (12:33→20:16)
[2019-12-26 12:41] LABS: % IRON SATURATION 29 % (11-46); IRON 29 UG/DL (53-167); TOTAL IRON BINDING CAPACITY 99 UG/DL (259-388)
[2019-12-26 12:59] LABS: FERRITIN 255 NG/ML (26-388)
[2019-12-26] MEDS ORDERED: LIDOcaine 2% 10ml TOPICAL JELLY (Urojet) MM ONE (15:10)
[2019-12-26] MEDS: morphine 2 MG/ML inj. syringe IV PRN (15:17)
--- NOTE | 2019-12-26 16:03 | NUR ---
Catheter malfunctioned at connection that could not be fixed. Attempted to place two times; both times, catheter inserted with minimal resistance, yet no urine return and and balloon would not inflate. Contacted PA for for how to proceed, who is on her way Addendum: 12/26/19 at 1606 by Nguyễn Suazo RN Unable to chart urine output for the last few hours
--- NOTE | 2019-12-26 16:22 | NUR ---
Called stone spreader operator urologist. They stated to call back if i dont hear from them in 30min Addendum: 12/26/19 at 1725 by Nguyễn Suazo RN Dangelo placed by
[2019-12-26 17:59] LABS: BASOPHILS # (AUTO) 0.1 X10'3 (0-0.2); BASOPHILS % (AUTO) 0.3 % (0-1); EOSINOPHILS # (AUTO) 0.4 X10'3 (0-0.9); EOSINOPHILS % (AUTO) 1.9 % (0-6); HEMATOCRIT 24.3 % (42.0-52.0); HEMOGLOBIN 7.9 g/dl (14.0-17.9); LYMPHOCYTES # (AUTO) 0.6 X10'3 (1.1-4.8); LYMPHOCYTES % (AUTO) 3.3 % (21-51); MEAN CORPUSCULAR HEMOGLOBIN 26.4 PG (27.0-31.0); MEAN CORPUSCULAR HGB CONC 32.3 g/dL (33.0-36.5); MEAN CORPUSCULAR VOLUME 81.7 FL (78-98); MEAN PLATELET VOLUME 9.9 FL (7.4-10.4); MONOCYTES # (AUTO) 1.2 X10'3 (0-0.9); MONOCYTES % (AUTO) 6.3 % (2-12); NEUTROPHILS % (AUTO) 88.2 % (42-75); RED BLOOD COUNT 2.98 X10'6 (4.70-6.10); RED CELL DISTRIBUTION WIDTH 21.8 % (11.5-14.5); WHITE BLOOD COUNT 19.2 X10'3 (4.5-11.0)
[2019-12-26 18:19] LABS: PLATELET COUNT 19 X10'3 (140-440)
--- NOTE | 2019-12-26 18:20 | NUR ---
Patient in room CICU 2014. I have received report from DUSTY Adrian and had the opportunity to ask questions and assume patient care.
--- NOTE | 2019-12-26 18:30 | NUR ---
Tata Sampson notified of low platelet count of 19, informed that this is a redraw after pt received a 10pk of plt for plt count of 19. Received no new orders at this time, instructed to monitor for signs of bleeding. will continue to monitor patient condition and will update oncoming EXTENSION WORK INSTRUCTOR of patient condition as well.
--- NOTE | 2019-12-26 19:23 | NUR ---
July Faustino,CHRISTOPH updated on patient condition (low plt of 19), no new orders at this time, will continue to monitor patient.
[2019-12-26] MEDS: famotidine 20mg tablet PO SCH (20:16)
[2019-12-26] MEDS: insulin glargine (Lantus) pen - multi-dose SQ SCH (20:24)
[2019-12-27] VITALS (21 sets, daily range): BP systolic 83–113; BP diastolic 45–69
[2019-12-27] MEDS ORDERED: VANCOMYCIN LEVEL IV ONE (02:30)
[2019-12-27 02:53] LABS: BASOPHILS % (AUTO) 0.1 % (0-1); EOSINOPHILS # (AUTO) 0.3 X10'3 (0-0.9); EOSINOPHILS % (AUTO) 2.3 % (0-6); HEMATOCRIT 24.3 % (42.0-52.0); HEMOGLOBIN 7.7 g/dl (14.0-17.9); LYMPHOCYTES # (AUTO) 0.6 X10'3 (1.1-4.8); LYMPHOCYTES % (AUTO) 4.3 % (21-51); MEAN CORPUSCULAR HEMOGLOBIN 25.6 PG (27.0-31.0); MEAN CORPUSCULAR HGB CONC 31.7 g/dL (33.0-36.5); MEAN CORPUSCULAR VOLUME 80.8 FL (78-98); MEAN PLATELET VOLUME 10.5 FL (7.4-10.4); MONOCYTES # (AUTO) 1.1 X10'3 (0-0.9); MONOCYTES % (AUTO) 7.9 % (2-12); NEUTROPHILS # (AUTO) 12.5 X10'3 (1.8-7.7); NEUTROPHILS % (AUTO) 85.4 % (42-75); RED BLOOD COUNT 3.01 X10'6 (4.70-6.10); RED CELL DISTRIBUTION WIDTH 21.7 % (11.5-14.5); WHITE BLOOD COUNT 14.6 X10'3 (4.5-11.0)
[2019-12-27 03:03] LABS: ALANINE AMINOTRANSFERASE 21 U/L (12-78); ALBUMIN 1.3 G/DL (3.4-5.0); ALKALINE PHOSPHATASE 81 IU/L (46-116); ANION GAP 12 (8-16); ASPARTATE AMINO TRANSFERASE 44 U/L (10-37); BILIRUBIN,TOTAL 8.9 MG/DL (0.1-1.0); BLOOD UREA NITROGEN 110 MG/DL (7-18); BUN/CREATININE RATIO 29.8 (5.4-32.0); CALCIUM 8.2 MG/DL (8.5-10.1); CHLORIDE 101 MMOL/L (99-107); CREATININE 3.69 MG/DL (0.60-1.10); GLUCOSE 119 MG/DL (70-104); SODIUM 138 MMOL/L (135-145); TOTAL CARBON DIOXIDE 24.9 MMOL/L (24-32); eGFR 17 ML/MIN
[2019-12-27 03:04] LABS: MAGNESIUM 1.9 MG/DL (1.5-2.4)
[2019-12-27 03:05] LABS: PLATELET COUNT 18 X10'3 (140-440)
[2019-12-27 03:08] LABS: ALBUMIN/GLOBULIN RATIO 0.3 (1.1-1.5); PHOSPHORUS 3.5 MG/DL (2.3-4.5); POTASSIUM 3.8 MMOL/L (3.5-5.1); TOTAL PROTEIN 5.2 G/DL (6.4-8.2)
[2019-12-27] MEDS: VANCOmycin 1250MG/NS 250ml Bag 250 ML IV SCH (03:09)
--- NOTE | 2019-12-27 03:14 | NUR ---
Vancomycin started before receiving high vanco trough, it has now been stopped. Addendum: 12/27/19 at 0327 by Ginger Llamas RN July Faustino AVIONICS SYSTEM ENGINEER and Pharmacy have been notified of this, vanco trough 35.
--- NOTE | 2019-12-27 06:54 | NUR ---
Problems reprioritized. Patient report given, questions answered & plan of care reviewed with DUSTY Jackson.
--- NOTE | 2019-12-27 07:12 | NUR ---
Patient in room CICU 2014. I have received report from PHYLLIS and had the opportunity to ask questions and assume patient care. PT RESTING IN BED, ORIENTED TO SELF. NO COMPLAINTS AT THIS TIME.
[2019-12-27] MEDS: midodrine 5mg tablet PO SCH ×3 (07:51→16:36)
[2019-12-27] MEDS: famotidine 20mg tablet PO SCH ×2 (07:51→20:32)
[2019-12-27] MEDS: lactobacillus rhamnosus 10,000 MMU CELLS/CAPSULE PO SCH ×2 (07:51→20:32)
[2019-12-27] MEDS: multivitamins, therapeutics tablet PO SCH (07:51)
[2019-12-27] MEDS: folic acid 1mg tablet PO SCH (07:52)
[2019-12-27] MEDS: sucralfate 1gm/10ml UD suspension PO SCH ×4 (07:52→20:32)
[2019-12-27] MEDS: K, MAG and/or Phos replacement - Verify level? MC SCH (08:00)
--- NOTE | 2019-12-27 10:07 | NUR ---
Reassessment: Pt AOx1 PO 0% renal diet past 4 days since admit not meeting needs. LBM 12/25. BUN increasing w/ no source of GIB at this time though high risk for bleed per MD. Receiving folic, MVI w/ etoh hx. Would benefit from liberalization to regular diet w/ electrolyte WNL and poor PO hx if MD agreeable. If continued poor PO will likely meet minimum non-severe malnutrition criteria. Will continue to monitor. Recommend: 1. continue renal diet; liberalize to regular in view of poor PO hx 2. bowel care as needed 3. weight per rx 4. monitor need for ONS if with suboptimal PO intake. Addendum: 12/27/19 at [address] Amended: Links added.
[2019-12-27] MEDS: thiamine 100mg tablet PO SCH (11:37)
--- NOTE | 2019-12-27 12:28 | NUR ---
RECIEVED REPORT FROM DUSTY BRANTLEY VIA TELEPHONE.
--- NOTE | 2019-12-27 13:00 | NUR ---
GAVE REPORT TO DUSTY HERNANDEZ PT [place] [facility] [place] [id number]. PT IN STABLE CONDITION. PT ORIENTED TO ROOM, CALL LIGHT IN REACH, BED LOWERED, LOCKED
--- NOTE | 2019-12-27 13:10 | NUR ---
RECEIVED FROM CICU VIA BED. AGREE WITH PRIOR ASSESSMENT.
--- NOTE | 2019-12-27 18:33 | NUR ---
Problems reprioritized. Patient report given, questions answered & plan of care reviewed with DUSTY WHIPPLE.
[2019-12-27] MEDS: insulin glargine (Lantus) pen - multi-dose SQ SCH (20:35)
[2019-12-28] VITALS (21 sets, daily range): BP systolic 80–117; BP diastolic 47–61
[2019-12-28] MEDS ORDERED: VANCOMYCIN 750MG IV in NS 250 ML IV SCH (03:00)
--- NOTE | 2019-12-28 06:30 | NUR ---
Patient in room PCU 3027. I have received report from DUSTY WHIPPLE and had the opportunity to ask questions and assume patient care.
[2019-12-28] MEDS: sucralfate 1gm/10ml UD suspension PO SCH ×5 (07:00→21:09)
[2019-12-28 07:48] LABS: BASOPHILS # (AUTO) 0.1 X10'3 (0-0.2); RED BLOOD COUNT 2.86 X10'6 (4.70-6.10)
[2019-12-28 07:50] LABS: BASOPHILS % (AUTO) 0.4 % (0-1); EOSINOPHILS # (AUTO) 0.3 X10'3 (0-0.9); EOSINOPHILS % (AUTO) 2.3 % (0-6); HEMATOCRIT 23.2 % (42.0-52.0); HEMOGLOBIN 7.5 g/dl (14.0-17.9); LYMPHOCYTES # (AUTO) 0.8 X10'3 (1.1-4.8); LYMPHOCYTES % (AUTO) 6.2 % (21-51); MEAN CORPUSCULAR HEMOGLOBIN 26.1 PG (27.0-31.0); MEAN CORPUSCULAR HGB CONC 32.2 g/dL (33.0-36.5); MEAN PLATELET VOLUME 9.8 FL (7.4-10.4); MONOCYTES # (AUTO) 1.1 X10'3 (0-0.9); NEUTROPHILS # (AUTO) 11.2 X10'3 (1.8-7.7); NEUTROPHILS % (AUTO) 83.1 % (42-75); RED CELL DISTRIBUTION WIDTH 22.3 % (11.5-14.5); WHITE BLOOD COUNT 13.4 X10'3 (4.5-11.0)
[2019-12-28 07:52] LABS: PLATELET COUNT 22 X10'3 (140-440)
[2019-12-28] MEDS: midodrine 5mg tablet PO SCH ×4 (08:00→16:51)
[2019-12-28] MEDS: famotidine 20mg tablet PO SCH ×3 (08:00→21:09)
[2019-12-28] MEDS: lactobacillus rhamnosus 10,000 MMU CELLS/CAPSULE PO SCH ×3 (08:00→21:09)
[2019-12-28] MEDS: K, MAG and/or Phos replacement - Verify level? MC SCH (08:00)
[2019-12-28] MEDS: folic acid 1mg tablet PO SCH (08:01)
[2019-12-28 08:02] LABS: ALANINE AMINOTRANSFERASE 20 U/L (12-78); ALBUMIN 1.3 G/DL (3.4-5.0); ALKALINE PHOSPHATASE 92 IU/L (46-116); ANION GAP 13 (8-16); ASPARTATE AMINO TRANSFERASE 40 U/L (10-37); BILIRUBIN,TOTAL 10.5 MG/DL (0.1-1.0); BLOOD UREA NITROGEN 128 MG/DL (7-18); BUN/CREATININE RATIO 30.8 (5.4-32.0); CALCIUM 8.2 MG/DL (8.5-10.1); CHLORIDE 103 MMOL/L (99-107); CREATININE 4.15 MG/DL (0.60-1.10); GLUCOSE 107 MG/DL (70-104); MAGNESIUM 2.1 MG/DL (1.5-2.4); SODIUM 138 MMOL/L (135-145); TOTAL CARBON DIOXIDE 21.7 MMOL/L (24-32); eGFR 15 ML/MIN
[2019-12-28] MEDS: thiamine 100mg tablet PO SCH (08:02)
[2019-12-28] MEDS: multivitamins, therapeutics tablet PO SCH (08:03)
[2019-12-28 08:04] LABS: PHOSPHORUS 4.9 MG/DL (2.3-4.5); POTASSIUM 3.9 MMOL/L (3.5-5.1); TOTAL PROTEIN 5.3 G/DL (6.4-8.2)
[2019-12-28 08:05] LABS: ALBUMIN/GLOBULIN RATIO 0.3 (1.1-1.5)
[2019-12-28] MEDS ORDERED: desmopressin inj. 20 MCG in normal saline 100ml IV soln 100 ML IV ONE (08:15)
[2019-12-28] MEDS ORDERED: VANCOMYCIN LEVEL IV ONE (08:39)
[2019-12-28 09:08] LABS: PARTIAL THROMBOPLASTIN TIME 38 SECONDS (22-32)
[2019-12-28] MEDS ORDERED: vancomycin/NS 1 GM ADD-VANTAGE 250 ML IV PRN (09:30)
[2019-12-28 10:18] LABS: ANISOCYTOSIS 3+; PLATELET ESTIMATE DECREASED; TOTAL CELLS COUNTED 100
[2019-12-28 10:22] LABS: LARGE PLATELETS FEW; TOXIC GRANULATION 2+
[2019-12-28 10:23] LABS: BURR CELLS 1+; ELLIPTOCYTES FEW
[2019-12-28 10:24] LABS: POIKILOCYTOSIS 1+
[2019-12-28] MEDS ORDERED: albumin (human) 25% 100ml IV 100 ML IV PRN (11:30)
[2019-12-28] MEDS ORDERED: epoetin 20,000 units/ml inj IV ONE (11:30)
[2019-12-28] MEDS ORDERED: heparin 1,000unit/ml 10ml vial 10 ML ONE (11:31)
[2019-12-28] MEDS ORDERED: LIDOcaine 1%/PF 5ML 10 MG/ML VIAL ONE (11:31)
[2019-12-28] MEDS ORDERED: fentaNYL/PF 50MCG/1 ML 2ML syringe ONE (11:34)
[2019-12-28] MEDS ORDERED: heparin 1,000 units/ml 10ml inj HE ONE ×2 (11:35)
--- NOTE | 2019-12-28 12:37 | NUR ---
patient returned from TDC placement- TDC placed in right upper chest. Post op vitals initiated
--- NOTE | 2019-12-28 14:39 | NUR ---
F/u (12/27): Pt continues poor PO 0%/refusing meals 5 days since admit w/ ALOC AOx2 and etoh hx. Receiving thiamin, folic, MVI for etoh. ZONIA d/w RN regarding liberalization to regular diet and feeder to assist at meal times if MD agreeable w/ ALOC. Pt s/p TDC placement today w/ BUN/Cr worsening. If poor PO continues will likely require alternative nutrition support criteria to meet needs now on HD. +9kg wt gain one day likely error; prior 90kg wt more accurate keeping BMI 24. LBM 12/25. Will continue to monitor. Recommend: 1. continue renal diet; liberalize to regular in view of poor PO hx; consider feeder to aid w/ meals given ALOC 2. bowel care as needed 3. thiamin, folic, MVI for etoh hx 4. weight per rx 5. monitor for nutrition support needs w/ prolonged 0% PO 5 days now on HD Addendum: 12/28/19 at [address] Amended: Links added.
--- NOTE | 2019-12-28 14:50 | NUR ---
TDC DRESSING REMAINS CDI WITHOUT SX OF HEMATOMA OR HEMORRHAGE.
--- NOTE | 2019-12-28 17:58 | NUR ---
DOCUMENTED PLATELET INFUSION FINISHED AT 1150. PT WAS TAKEN TO IR MID INFUSION BY DUSTY REYES FOR TDC PLACEMENT. IR DID NOT DOCUMENT THE INFUSION ENDING NOR REPORT ANY REACTION. WAS RETURNED POST INFUSION.
--- NOTE | 2019-12-28 18:19 | NUR ---
Problems reprioritized. Patient report given, questions answered & plan of care reviewed with DUSTY SAVAGE.
--- NOTE | 2019-12-28 18:20 | NUR ---
Patient in room PCU 3027. I have received report from DUSTY Byers and had the opportunity to ask questions and assume patient care.
--- NOTE | 2019-12-28 20:30 | NUR ---
Nurse walked into the pt's room to administer medications. Nurse found pt in a pool of blood by the head of the bed. Upon rapid assessment, completely pulled out TDC was found by the pt. Nurse immediately put pressure on the actively bleeding wound and called out for help to the charge nurse. Charge nurse came into the room and continued to apply pressure. Nurse called MARIVEL July to get orders. PA ordered to apply pressure for 20 mins until active bleeding stopped, wound care, and hemogram labs to be taken. Once active bleeding stopped, wound care was completed , and labs were taken, a sitter was assigned to remain at pt's bedside to ensure safety. Will continue to monitor patient and wound site.
[2019-12-28] MEDS ORDERED: gelatin sponge, absorbable (Gelfoam 12-7MM) sponge TP ONE (20:50)
[2019-12-28] MEDS: insulin glargine (Lantus) pen - multi-dose SQ SCH (21:00)
--- NOTE | 2019-12-28 21:00 | NUR ---
MARIVEL July was notified concerning pt's hypotension. Pt is currently placed in Trendelenburg. PA ordered nurse to closely monitor BP and if systolic BP dropped down below 80, nurse should notify PA so albumin gtt orders can be placed. Continuous BP will be take [id number] with sitter at bedside.
[2019-12-28 21:46] LABS: MEAN CORPUSCULAR HEMOGLOBIN 26.6 PG (27.0-31.0); MEAN CORPUSCULAR HGB CONC 32.6 g/dL (33.0-36.5); MEAN CORPUSCULAR VOLUME 81.7 FL (78-98); MEAN PLATELET VOLUME 9.1 FL (7.4-10.4); RED BLOOD COUNT 2.38 X10'6 (4.70-6.10); RED CELL DISTRIBUTION WIDTH 21.7 % (11.5-14.5); WHITE BLOOD COUNT 12.7 X10'3 (4.5-11.0)
[2019-12-28 21:51] LABS: HEMOGLOBIN 6.3 g/dl (14.0-17.9)
[2019-12-28 21:52] LABS: HEMATOCRIT 19.5 % (42.0-52.0); PLATELET COUNT 30 X10'3 (140-440)
[2019-12-29] VITALS (14 sets, daily range): BP systolic 85–98; BP diastolic 41–54
[2019-12-29] MEDS: VANCOMYCIN LEVEL IV SCH (03:00)
[2019-12-29 03:46] LABS: EOSINOPHILS # (AUTO) 0.2 X10'3 (0-0.9); LYMPHOCYTES # (AUTO) 0.8 X10'3 (1.1-4.8)
[2019-12-29 03:48] LABS: BASOPHILS # (AUTO) 0.1 X10'3 (0-0.2); BASOPHILS % (AUTO) 0.7 % (0-1); EOSINOPHILS % (AUTO) 1.6 % (0-6); LYMPHOCYTES % (AUTO) 6.3 % (21-51); MEAN CORPUSCULAR HEMOGLOBIN 25.8 PG (27.0-31.0); MEAN CORPUSCULAR HGB CONC 31.5 g/dL (33.0-36.5); MEAN CORPUSCULAR VOLUME 81.8 FL (78-98); MEAN PLATELET VOLUME 9.1 FL (7.4-10.4); MONOCYTES # (AUTO) 0.9 X10'3 (0-0.9); MONOCYTES % (AUTO) 7.3 % (2-12); NEUTROPHILS # (AUTO) 10.6 X10'3 (1.8-7.7); NEUTROPHILS % (AUTO) 84.1 % (42-75); RED BLOOD COUNT 2.32 X10'6 (4.70-6.10); RED CELL DISTRIBUTION WIDTH 21.9 % (11.5-14.5); WHITE BLOOD COUNT 12.6 X10'3 (4.5-11.0)
[2019-12-29 03:51] LABS: PLATELET COUNT 35 X10'3 (140-440)
--- NOTE | 2019-12-29 03:51 | NUR ---
Spoke to Garrett from the lab who stated that there was no record, in the order system, that any blood was ordered around 2200. corner brace block machine operator stated that it could possibly be due to the system being down at a unscheduled time. Blood has now been successfully ordered at 0346. Due to patient's specific antibodies found in type&screen blood, blood will most likely not arrive until day shift. Will pass this information along to day shift RN. Will also closely monitor patient.
[2019-12-29 03:58] LABS: ANISOCYTOSIS 3+; PLATELET ESTIMATE DECREASED
[2019-12-29 04:00] LABS: HYPOCHROMASIA 2+; PARTIAL THROMBOPLASTIN TIME 40 SECONDS (22-32); POIKILOCYTOSIS 2+
[2019-12-29 04:01] LABS: MICROCYTOSIS 2+; STOMATOCYTES 2+
[2019-12-29 04:04] LABS: ALANINE AMINOTRANSFERASE 19 U/L (12-78); ALBUMIN 1.5 G/DL (3.4-5.0); ALKALINE PHOSPHATASE 88 IU/L (46-116); ANION GAP 12 (8-16); ASPARTATE AMINO TRANSFERASE 39 U/L (10-37); BILIRUBIN,TOTAL 11.5 MG/DL (0.1-1.0); BLOOD UREA NITROGEN 89 MG/DL (7-18); BUN/CREATININE RATIO 24.8 (5.4-32.0); CALCIUM 7.8 MG/DL (8.5-10.1); CHLORIDE 103 MMOL/L (99-107); CREATININE 3.59 MG/DL (0.60-1.10); GLUCOSE 99 MG/DL (70-104); SODIUM 139 MMOL/L (135-145); VANCOMYCIN,RANDOM 28.9 UG/ML; eGFR 17 ML/MIN
[2019-12-29 04:05] LABS: ALBUMIN/GLOBULIN RATIO 0.4 (1.1-1.5); PHOSPHORUS 4.7 MG/DL (2.3-4.5); TOTAL PROTEIN 5.1 G/DL (6.4-8.2)
--- NOTE | 2019-12-29 06:25 | NUR ---
Problems reprioritized. Patient report given, questions answered & plan of care reviewed with DUSTY Ardon.
--- NOTE | 2019-12-29 06:37 | NUR ---
Patient in room PCU 3027. I have received report from DUSTY Hernandez and had the opportunity to ask questions and assume patient care.
--- NOTE | 2019-12-29 07:12 | NUR ---
Order for transfusion verified and unit started. Low bps with low maps, see documentation. Pt given s/s of transfusion reaction
[2019-12-29] MEDS: K, MAG and/or Phos replacement - Verify level? MC SCH (08:00)
--- NOTE | 2019-12-29 10:02 | NUR ---
Low Jefry: Pt with low Jefry of 12. Per [facility] notes pt has a cluster of wounds to anterior right ankle red and necrotic in color and reddened large ruptured darkly colored wound to left lateral foot. Wounds are documented as full thickness per WO notes. Pt continues to be documented as confused, A/O x 1, agitated, and resistive to care. Protein education not appropriate at this time. Will continue to follow closely. Addendum: 12/29/19 at [address] Amended: Links added.
[2019-12-29] MEDS: thiamine 100mg tablet PO SCH (10:27)
[2019-12-29] MEDS: midodrine 5mg tablet PO SCH ×3 (10:27→16:00)
[2019-12-29] MEDS: folic acid 1mg tablet PO SCH (10:27)
[2019-12-29] MEDS: multivitamins, therapeutics tablet PO SCH (10:27)
[2019-12-29] MEDS: famotidine 20mg tablet PO SCH ×2 (10:28→20:59)
[2019-12-29] MEDS: sucralfate 1gm/10ml UD suspension PO SCH ×4 (10:28→20:59)
[2019-12-29] MEDS: lactobacillus rhamnosus 10,000 MMU CELLS/CAPSULE PO SCH ×2 (10:28→20:59)
[2019-12-29] MEDS ORDERED: fentaNYL/PF 50MCG/1 ML 2ML syringe ONE (13:46)
[2019-12-29] MEDS ORDERED: midazolam 2 mg/2 ml injection ONE (13:46)
[2019-12-29] MEDS ORDERED: heparin 1,000unit/ml 10ml vial 10 ML ONE (13:46)
[2019-12-29 14:05] LABS: MEAN CORPUSCULAR HEMOGLOBIN 27.4 PG (27.0-31.0); MEAN CORPUSCULAR HGB CONC 32.7 g/dL (33.0-36.5); MEAN CORPUSCULAR VOLUME 83.8 FL (78-98); MEAN PLATELET VOLUME 9.9 FL (7.4-10.4); RED BLOOD COUNT 2.47 X10'6 (4.70-6.10); RED CELL DISTRIBUTION WIDTH 21.5 % (11.5-14.5)
[2019-12-29 14:08] LABS: PLATELET COUNT 56 X10'3 (140-440)
[2019-12-29 14:09] LABS: HEMATOCRIT 20.7 % (42.0-52.0); HEMOGLOBIN 6.8 g/dl (14.0-17.9)
[2019-12-29] MEDS ORDERED: heparin 1,000unit/ml 10ml vial 10 ML IV ONE (14:33)
[2019-12-29] MEDS ORDERED: normal saline 1000ml 250 ML IV PRN (14:33)
[2019-12-29] MEDS ORDERED: heparin 1,000 units/ml 10ml inj HE ONE ×2 (14:40)
--- NOTE | 2019-12-29 18:22 | NUR ---
Patient in room [facility] 3027. I have received report from and had the opportunity to ask questions and assume patient care. Addendum: 12/29/19 at 1822 by Natalie Stanford RN Received report from DUSTY Ardon.
[2019-12-29] MEDS: insulin glargine (Lantus) pen - multi-dose SQ SCH (21:00)
[2019-12-29 21:37] LABS: HEMATOCRIT 25.4 % (42.0-52.0); HEMOGLOBIN 8.4 g/dl (14.0-17.9); MEAN CORPUSCULAR HEMOGLOBIN 28.1 PG (27.0-31.0); MEAN CORPUSCULAR VOLUME 85.2 FL (78-98); MEAN PLATELET VOLUME 9.5 FL (7.4-10.4); PLATELET COUNT 62 X10'3 (140-440); RED BLOOD COUNT 2.98 X10'6 (4.70-6.10); RED CELL DISTRIBUTION WIDTH 20.1 % (11.5-14.5); WHITE BLOOD COUNT 14.8 X10'3 (4.5-11.0)
[2019-12-30 03:00] VITALS: BP 84/45
[2019-12-30] MEDS: VANCOMYCIN LEVEL IV SCH (03:00)
[2019-12-30 05:57] LABS: BASOPHILS # (AUTO) 0.1 X10'3 (0-0.2); BASOPHILS % (AUTO) 0.4 % (0-1); EOSINOPHILS # (AUTO) 0.3 X10'3 (0-0.9); EOSINOPHILS % (AUTO) 1.8 % (0-6); HEMATOCRIT 24.4 % (42.0-52.0); HEMOGLOBIN 8.1 g/dl (14.0-17.9); LYMPHOCYTES # (AUTO) 0.8 X10'3 (1.1-4.8); LYMPHOCYTES % (AUTO) 5.5 % (21-51); MEAN CORPUSCULAR HEMOGLOBIN 28.2 PG (27.0-31.0); MEAN CORPUSCULAR HGB CONC 33.3 g/dL (33.0-36.5); MEAN CORPUSCULAR VOLUME 84.8 FL (78-98); MEAN PLATELET VOLUME 9.3 FL (7.4-10.4); MONOCYTES # (AUTO) 1.2 X10'3 (0-0.9); MONOCYTES % (AUTO) 8.4 % (2-12); NEUTROPHILS # (AUTO) 12.1 X10'3 (1.8-7.7); NEUTROPHILS % (AUTO) 83.9 % (42-75); PLATELET COUNT 66 X10'3 (140-440); RED BLOOD COUNT 2.88 X10'6 (4.70-6.10); RED CELL DISTRIBUTION WIDTH 19.7 % (11.5-14.5); WHITE BLOOD COUNT 14.5 X10'3 (4.5-11.0)
[2019-12-30 06:10] LABS: ALANINE AMINOTRANSFERASE 24 U/L (12-78); ALBUMIN 1.4 G/DL (3.4-5.0); ALKALINE PHOSPHATASE 106 IU/L (46-116); ANION GAP 10 (8-16); ASPARTATE AMINO TRANSFERASE 51 U/L (10-37); BILIRUBIN,TOTAL 13.6 MG/DL (0.1-1.0); BLOOD UREA NITROGEN 53 MG/DL (7-18); BUN/CREATININE RATIO 16.8 (5.4-32.0); CHLORIDE 104 MMOL/L (99-107); CREATININE 3.16 MG/DL (0.60-1.10); GLUCOSE 82 MG/DL (70-104); SODIUM 140 MMOL/L (135-145); TOTAL CARBON DIOXIDE 26.1 MMOL/L (24-32); VANCOMYCIN,RANDOM 22.5 UG/ML; eGFR 20 ML/MIN
[2019-12-30 06:11] LABS: ALBUMIN/GLOBULIN RATIO 0.4 (1.1-1.5); PHOSPHORUS 4.3 MG/DL (2.3-4.5); TOTAL PROTEIN 5.4 G/DL (6.4-8.2)
[2019-12-30 06:15] LABS: CALCIUM 7.6 MG/DL (8.5-10.1)
--- NOTE | 2019-12-30 06:32 | NUR ---
Problems reprioritized. Patient report given, questions answered & plan of care reviewed with DUSTY Espitia.
[2019-12-30 07:00] VITALS: BP 95/44
[2019-12-30] MEDS: sucralfate 1gm/10ml UD suspension PO SCH ×4 (07:00→20:59)
--- NOTE | 2019-12-30 07:08 | NUR ---
Patient in room PCU 3027. I have received report from DUSTY Zuniga and had the opportunity to ask questions and assume patient care. Patient awake in bed, sitter at the bedside, and in no acute distress. Will continue to monitor.
[2019-12-30] MEDS: K, MAG and/or Phos replacement - Verify level? MC SCH (08:00)
[2019-12-30] MEDS: multivitamins, therapeutics tablet PO SCH (08:37)
[2019-12-30] MEDS: lactobacillus rhamnosus 10,000 MMU CELLS/CAPSULE PO SCH ×2 (08:37→19:31)
[2019-12-30] MEDS: thiamine 100mg tablet PO SCH (08:37)
[2019-12-30] MEDS: famotidine 20mg tablet PO SCH ×2 (08:38→19:31)
[2019-12-30] MEDS: midodrine 5mg tablet PO SCH ×3 (08:38→16:16)
[2019-12-30] MEDS: folic acid 1mg tablet PO SCH (08:38)
[2019-12-30 09:10] LABS: HBSAG SCREEN Negative (Negative); HEP B CORE AB, TOT Negative (Negative)
[2019-12-30 10:22] LABS: TOTAL CELLS COUNTED 100
[2019-12-30 10:23] LABS: ANISOCYTOSIS 2+; PLATELET ESTIMATE DECREASED; SMUDGE CELLS 2+
--- NOTE | 2019-12-30 14:19 | NUR ---
Reassessment: Pt pulled out his TDC on 12/27 however had it replaced and is receiving dialysis per RN. Patient's diet has been appropriately advanced from renal to regular given 0% PO intake with refusal of meals x 6 days not meeting nutrient needs. Despite active diet order pt documented as NPO in care trends. D/w RN who reports pt is not NPO and consumed 100% of milk and roughly 50% of meal at breakfast this morning and is still working on lunch tray. Pt documented as A/O x 1 and confused. RN reports pt eating well with no signs of difficulty chewing or swallowing and states pt has a sitter at bedside that is encouraging PO intake. LBM 12/27. Pt with PRN bowel care available. Will continue to follow closely and make recommendations as appropriate. Recommend: 1. continue regular diet; encourage PO intake; consider feeder to aid w/ meals given ALOC 2. bowel care as needed 3. continue routine thiamine, folic, and MVI for etoh hx 4. scaled weight per rx 5. monitor for ONS/nutrition support needs w/ prolonged 0% PO 6 x days now with increased protein needs on HD; PO intake improving today per RN-pending documentation of PO intake Addendum: 12/30/19 at [address] Amended: Links added.
[2019-12-30 15:00] VITALS: BP 100/56
[2019-12-30 18:00] VITALS: BP 116/67
--- NOTE | 2019-12-30 18:19 | NUR ---
Problems reprioritized. Patient report given, questions answered & plan of care reviewed with DUSTY Zabala. Patient stable at transfer of care.
[2019-12-30] MEDS: insulin glargine (Lantus) pen - multi-dose SQ SCH (21:00)
[2019-12-30 22:00] VITALS: BP 95/51
--- NOTE | 2019-12-31 00:08 | NUR ---
Paged Dr. Douglas. PAGER ID: [phone] MESSAGE: This is DUSTY Morales from [facility]. Pt in Rm 3027A Anthony Rahman 59 M Dx : UTI, Sepsis, and Hypotensive. Pt is restless and can't sleep. Can he have Melatonin? Thanks! [phone]
[2019-12-31] MEDS: Melatonin 3mg tablet PO PRN ×2 (00:39→22:14)
[2019-12-31 03:19] LABS: BASOPHILS # (AUTO) 0.1 X10'3 (0-0.2); BASOPHILS % (AUTO) 0.8 % (0-1); EOSINOPHILS # (AUTO) 0.3 X10'3 (0-0.9); EOSINOPHILS % (AUTO) 1.8 % (0-6); HEMATOCRIT 25.6 % (42.0-52.0); HEMOGLOBIN 8.4 g/dl (14.0-17.9); LYMPHOCYTES % (AUTO) 6.7 % (21-51); MEAN CORPUSCULAR HEMOGLOBIN 28.9 PG (27.0-31.0); MEAN CORPUSCULAR HGB CONC 32.7 g/dL (33.0-36.5); MEAN CORPUSCULAR VOLUME 88.3 FL (78-98); MONOCYTES # (AUTO) 1.5 X10'3 (0-0.9); MONOCYTES % (AUTO) 10.2 % (2-12); NEUTROPHILS # (AUTO) 11.7 X10'3 (1.8-7.7); NEUTROPHILS % (AUTO) 80.5 % (42-75); PLATELET COUNT 78 X10'3 (140-440); RED BLOOD COUNT 2.91 X10'6 (4.70-6.10); RED CELL DISTRIBUTION WIDTH 21.5 % (11.5-14.5); WHITE BLOOD COUNT 14.5 X10'3 (4.5-11.0)
[2019-12-31 03:33] LABS: ALANINE AMINOTRANSFERASE 20 U/L (12-78); ALBUMIN 1.4 G/DL (3.4-5.0); ALBUMIN/GLOBULIN RATIO 0.3 (1.1-1.5); ALKALINE PHOSPHATASE 109 IU/L (46-116); ANION GAP 11 (8-16); ASPARTATE AMINO TRANSFERASE 50 U/L (10-37); BILIRUBIN,TOTAL 14.6 MG/DL (0.1-1.0); BLOOD UREA NITROGEN 63 MG/DL (7-18); BUN/CREATININE RATIO 14.1 (5.4-32.0); CALCIUM 7.6 MG/DL (8.5-10.1); CHLORIDE 104 MMOL/L (99-107); CREATININE 4.47 MG/DL (0.60-1.10); GLUCOSE 102 MG/DL (70-104); MAGNESIUM 1.9 MG/DL (1.5-2.4); PHOSPHORUS 5.6 MG/DL (2.3-4.5); POTASSIUM 4.1 MMOL/L (3.5-5.1); SODIUM 140 MMOL/L (135-145); TOTAL CARBON DIOXIDE 24.7 MMOL/L (24-32); TOTAL PROTEIN 5.7 G/DL (6.4-8.2); VANCOMYCIN,RANDOM 19.4 UG/ML; eGFR 14 ML/MIN
[2019-12-31] MEDS: VANCOMYCIN LEVEL IV SCH (03:50)
--- NOTE | 2019-12-31 06:03 | NUR ---
Problems reprioritized. Patient report given, questions answered & plan of care reviewed with DUSTY Espitia.
--- NOTE | 2019-12-31 06:47 | NUR ---
Patient in room PCU 3027. I have received report from DUSTY Guzman and had the opportunity to ask questions and assume patient care. Patient asleep in bed, sitter at the bedside, and in no acute distress.
[2019-12-31] MEDS: sucralfate 1gm/10ml UD suspension PO SCH ×4 (07:00→20:03)
[2019-12-31] MEDS ORDERED: epoetin 20,000 units/ml inj IV ONE (08:00)
[2019-12-31] MEDS ORDERED: heparin 1,000 units/ml 10ml inj HE ONE ×2 (08:00)
[2019-12-31] MEDS: K, MAG and/or Phos replacement - Verify level? MC SCH (08:00)
[2019-12-31] MEDS ORDERED: normal saline 1000ml 250 ML IV PRN (08:00)
[2019-12-31] MEDS ORDERED: heparin 1,000 units/ml 10ml inj IV ONE (08:00)
[2019-12-31] MEDS: midodrine 5mg tablet PO SCH ×3 (08:51→15:50)
[2019-12-31] MEDS: folic acid 1mg tablet PO SCH (08:51)
[2019-12-31] MEDS: thiamine 100mg tablet PO SCH (08:51)
[2019-12-31] MEDS: multivitamins, therapeutics tablet PO SCH (08:51)
[2019-12-31] MEDS: lactobacillus rhamnosus 10,000 MMU CELLS/CAPSULE PO SCH ×2 (08:51→20:03)
[2019-12-31] MEDS: famotidine 20mg tablet PO SCH ×2 (08:51→20:03)
[2019-12-31 11:00] VITALS: BP 96/54
[2019-12-31 15:00] VITALS: BP 92/46
--- NOTE | 2019-12-31 17:46 | NUR ---
[place] documentation: I have reviewed and agree with all interventions, assessments performed and documented by DUSTY Strickland.
--- NOTE | 2019-12-31 17:47 | NUR ---
[place] Medication Administration: For this medication-pass time frame, all medication were reviewed, dispensed, administered and documented per hospital policy by DUSTY Strickland.
[2019-12-31 18:00] VITALS: BP 104/52
--- NOTE | 2019-12-31 18:09 | NUR ---
Problems reprioritized. Patient report given, questions answered & plan of care reviewed with DUSTY Morales.
[2019-12-31] MEDS: insulin glargine (Lantus) pen - multi-dose SQ SCH (21:00)
--- NOTE | 2019-12-31 22:00 | NUR ---
BS improved; BS =73 @ 0 15 mins after pt took the gluco-shot; Solid food offered, but he kept on refusing them. At 2200, pt kept refusing blood sugar check despite the encouragement, and when he finally calmed down, he allowed us to checked his blood sugar, and now it's 87.
[2020-01-01 02:00] VITALS: BP 94/49
[2020-01-01] MEDS: VANCOMYCIN LEVEL IV SCH (03:29)
[2020-01-01 03:36] LABS: BASOPHILS # (AUTO) 0.1 X10'3 (0-0.2); BASOPHILS % (AUTO) 0.5 % (0-1); EOSINOPHILS # (AUTO) 0.3 X10'3 (0-0.9); EOSINOPHILS % (AUTO) 2.3 % (0-6); HEMATOCRIT 26.6 % (42.0-52.0); HEMOGLOBIN 8.7 g/dl (14.0-17.9); LYMPHOCYTES # (AUTO) 1.3 X10'3 (1.1-4.8); LYMPHOCYTES % (AUTO) 8.7 % (21-51); MEAN CORPUSCULAR HEMOGLOBIN 29.1 PG (27.0-31.0); MEAN CORPUSCULAR HGB CONC 32.5 g/dL (33.0-36.5); MEAN CORPUSCULAR VOLUME 89.6 FL (78-98); MEAN PLATELET VOLUME 8.9 FL (7.4-10.4); MONOCYTES # (AUTO) 1.9 X10'3 (0-0.9); MONOCYTES % (AUTO) 13.2 % (2-12); NEUTROPHILS # (AUTO) 10.9 X10'3 (1.8-7.7); NEUTROPHILS % (AUTO) 75.3 % (42-75); PLATELET COUNT 79 X10'3 (140-440); RED BLOOD COUNT 2.98 X10'6 (4.70-6.10); RED CELL DISTRIBUTION WIDTH 22.2 % (11.5-14.5); WHITE BLOOD COUNT 14.5 X10'3 (4.5-11.0)
[2020-01-01 03:50] LABS: ALANINE AMINOTRANSFERASE 20 U/L (12-78); ALBUMIN 1.4 G/DL (3.4-5.0); ANION GAP 11 (8-16); BILIRUBIN,TOTAL 15.5 MG/DL (0.1-1.0); BLOOD UREA NITROGEN 37 MG/DL (7-18); BUN/CREATININE RATIO 9.7 (5.4-32.0); CALCIUM 7.8 MG/DL (8.5-10.1); CHLORIDE 101 MMOL/L (99-107); CREATININE 3.83 MG/DL (0.60-1.10); MAGNESIUM 1.8 MG/DL (1.5-2.4); SODIUM 138 MMOL/L (135-145); TOTAL CARBON DIOXIDE 25.9 MMOL/L (24-32); eGFR 16 ML/MIN
[2020-01-01 03:51] LABS: ALKALINE PHOSPHATASE 118 IU/L (46-116); VANCOMYCIN,RANDOM 15.6 UG/ML
[2020-01-01 03:52] LABS: ALBUMIN/GLOBULIN RATIO 0.3 (1.1-1.5); ASPARTATE AMINO TRANSFERASE 64 U/L (10-37); GLUCOSE 93 MG/DL (70-104); PHOSPHORUS 4.8 MG/DL (2.3-4.5); POTASSIUM 4.2 MMOL/L (3.5-5.1); TOTAL PROTEIN 6.1 G/DL (6.4-8.2)
[2020-01-01 04:01] LABS: ANISOCYTOSIS 2+; HYPOCHROMASIA 2+; PLATELET ESTIMATE DECREASED
--- NOTE | 2020-01-01 06:07 | NUR ---
Problems reprioritized. Patient report given, questions answered & plan of care reviewed with DUSTY Persaud.
--- NOTE | 2020-01-01 06:07 | NUR ---
Patient in room PCU 3027. I have received report from DUSTY Morales and had the opportunity to ask questions and assume patient care.
--- NOTE | 2020-01-01 06:14 | NUR ---
Patient in room PCU 3027. I have received report from DUSTY Zabala and had the opportunity to ask questions and assume patient care. Patient asleep in bed, sitter at the bedside and in no acute distress.
[2020-01-01 07:00] VITALS: BP 94/50
--- NOTE | 2020-01-01 07:00 | NUR ---
During the physical assessment, patient's TDC dressing was folded over and pushed up. Mild dried blood surrounding the dressing. TDC site was cleansed with chlorhexidine and a new dressing was placed over TDC.
[2020-01-01] MEDS: K, MAG and/or Phos replacement - Verify level? MC SCH (08:00)
[2020-01-01] MEDS: midodrine 5mg tablet PO SCH ×3 (08:12→16:40)
[2020-01-01] MEDS: sucralfate 1gm/10ml UD suspension PO SCH ×4 (08:12→20:39)
[2020-01-01] MEDS: lactobacillus rhamnosus 10,000 MMU CELLS/CAPSULE PO SCH ×2 (08:12→20:38)
[2020-01-01] MEDS: thiamine 100mg tablet PO SCH (08:12)
[2020-01-01] MEDS: folic acid 1mg tablet PO SCH (08:12)
[2020-01-01] MEDS: famotidine 20mg tablet PO SCH ×2 (08:12→20:38)
[2020-01-01] MEDS: multivitamins, therapeutics tablet PO SCH (08:12)
[2020-01-01 11:00] VITALS: BP 90/46
--- NOTE | 2020-01-01 12:38 | NUR ---
Reassessment: Pt continues with dialysis per MD note. PO intake slightly improved, up to 50% with 100% PO intake of milk at breakfast 12/29 however overall recently averaging 25% PO intake with refusals since last RD assessment. Despite increase in PO intake pt still not meeting nutrient needs. Recommend Nepro to optimize PO intake. ONS to be sent pending MD approval in [place]. Pt remains A/O x 2 and confused. LBM 12/31 documented as diarrhea however stool small in size. Will continue to follow closely and monitor need for further nutrition intervention. Recommend: 1. continue regular diet; encourage PO intake; consider feeder to aid w/ meals given ALOC 2. Nepro TID; pending MD approval in [place] 3. bowel care as needed 4. continue routine thiamine, folic, and MVI for etoh hx 5. scaled weight per rx 6. monitor for nutrition support needs w/ prolonged 0% PO with increased protein needs on HD 7. may benefit from Phos binder given elevated Phos, 4.8 mg/dL today Addendum: 01/01/20 at [address] Amended: Links added.
[2020-01-01] MEDS: NUT.TX.IMP.RENAL FXN,LAC-REDUC (Nepro) 237 ML VANILLA PO SCH ×2 (13:00→18:00)
[2020-01-01 15:00] VITALS: BP 98/53
--- NOTE | 2020-01-01 17:35 | NUR ---
[place] documentation: I have reviewed and agree with all interventions, assessments performed and documented by DUSTY Strickland.
--- NOTE | 2020-01-01 17:35 | NUR ---
[place] Medication Administration: For this medication-pass time frame, all medication were reviewed, dispensed, administered and documented per hospital policy by DUSTY Strickland.
[2020-01-01 18:00] VITALS: BP 114/59
--- NOTE | 2020-01-01 18:11 | NUR ---
Problems reprioritized. Patient report given, questions answered & plan of care reviewed with DUSTY Lobo.
--- NOTE | 2020-01-01 18:14 | NUR ---
Patient in room PCU 3027. I have received report from Em MONTANO and had the opportunity to ask questions and assume patient care.
[2020-01-01] MEDS: insulin glargine (Lantus) pen - multi-dose SQ SCH (20:41)
[2020-01-01 22:00] VITALS: BP 100/76
[2020-01-02] MEDS: Melatonin 3mg tablet PO PRN (00:50)
[2020-01-02 02:00] VITALS: BP 107/56
[2020-01-02 03:06] LABS: BASOPHILS # (AUTO) 0.1 X10'3 (0-0.2); BASOPHILS % (AUTO) 0.7 % (0-1); EOSINOPHILS # (AUTO) 0.3 X10'3 (0-0.9); EOSINOPHILS % (AUTO) 2.3 % (0-6); HEMATOCRIT 26.9 % (42.0-52.0); HEMOGLOBIN 8.6 g/dl (14.0-17.9); LYMPHOCYTES # (AUTO) 0.9 X10'3 (1.1-4.8); LYMPHOCYTES % (AUTO) 7.1 % (21-51); MEAN CORPUSCULAR HEMOGLOBIN 28.8 PG (27.0-31.0); MEAN CORPUSCULAR HGB CONC 31.9 g/dL (33.0-36.5); MEAN CORPUSCULAR VOLUME 90.4 FL (78-98); MEAN PLATELET VOLUME 9.2 FL (7.4-10.4); MONOCYTES # (AUTO) 1.8 X10'3 (0-0.9); MONOCYTES % (AUTO) 13.4 % (2-12); NEUTROPHILS # (AUTO) 10.1 X10'3 (1.8-7.7); NEUTROPHILS % (AUTO) 76.5 % (42-75); PLATELET COUNT 90 X10'3 (140-440); RED BLOOD COUNT 2.98 X10'6 (4.70-6.10); RED CELL DISTRIBUTION WIDTH 25.9 % (11.5-14.5); WHITE BLOOD COUNT 13.2 X10'3 (4.5-11.0)
[2020-01-02 03:15] LABS: ALANINE AMINOTRANSFERASE 32 U/L (12-78); ALBUMIN 1.4 G/DL (3.4-5.0); ALKALINE PHOSPHATASE 120 IU/L (46-116); BILIRUBIN,TOTAL 15.8 MG/DL (0.1-1.0); BLOOD UREA NITROGEN 50 MG/DL (7-18); CALCIUM 7.8 MG/DL (8.5-10.1); CHLORIDE 103 MMOL/L (99-107); TOTAL CARBON DIOXIDE 23.2 MMOL/L (24-32)
[2020-01-02] MEDS: VANCOMYCIN LEVEL IV SCH (03:23)
[2020-01-02 03:28] LABS: ALBUMIN/GLOBULIN RATIO 0.3 (1.1-1.5); ANION GAP 18 (8-16); BUN/CREATININE RATIO 9.2 (5.4-32.0); CREATININE 5.45 MG/DL (0.60-1.10); GLUCOSE 57 MG/DL (70-104); PHOSPHORUS 7.1 MG/DL (2.3-4.5); POTASSIUM 4.4 MMOL/L (3.5-5.1); SODIUM 144 MMOL/L (135-145); TOTAL PROTEIN 6.3 G/DL (6.4-8.2); eGFR 11 ML/MIN
[2020-01-02 03:29] LABS: ASPARTATE AMINO TRANSFERASE 110 U/L (10-37)
[2020-01-02 03:31] LABS: VANCOMYCIN,RANDOM 12.9 UG/ML
[2020-01-02 04:49] LABS: PLATELET ESTIMATE DECREASED
[2020-01-02 04:51] LABS: ANISOCYTOSIS 3+
[2020-01-02 04:52] LABS: HYPOGRANULAR PLATELETS FEW
--- NOTE | 2020-01-02 06:16 | NUR ---
Problems reprioritized. Patient report given, questions answered & plan of care reviewed with Rosa MONTANO.
[2020-01-02] MEDS: sucralfate 1gm/10ml UD suspension PO SCH ×4 (07:00→20:52)
[2020-01-02] MEDS ORDERED: vancomycin/NS 1 GM ADD-VANTAGE 250 ML IV ONE (07:10)
[2020-01-02] MEDS ORDERED: epoetin 20,000 units/ml inj IV ONE (08:00)
[2020-01-02] MEDS: K, MAG and/or Phos replacement - Verify level? MC SCH (08:00)
[2020-01-02] MEDS ORDERED: heparin 1,000 units/ml 10ml inj IV ONE (08:00)
[2020-01-02] MEDS ORDERED: albumin (Human) 5% 250ml 250 ML IV PRN (08:00)
[2020-01-02] MEDS ORDERED: normal saline 1000ml 250 ML IV PRN (08:00)
[2020-01-02] MEDS ORDERED: heparin 1,000 units/ml 10ml inj HE ONE ×2 (08:00)
[2020-01-02] MEDS: NUT.TX.IMP.RENAL FXN,LAC-REDUC (Nepro) 237 ML VANILLA PO SCH ×3 (08:00→18:00)
[2020-01-02] MEDS: folic acid 1mg tablet PO SCH (08:19)
[2020-01-02] MEDS: multivitamins, therapeutics tablet PO SCH (08:25)
[2020-01-02] MEDS: thiamine 100mg tablet PO SCH (08:25)
[2020-01-02] MEDS: lactobacillus rhamnosus 10,000 MMU CELLS/CAPSULE PO SCH ×2 (08:25→20:00)
[2020-01-02] MEDS: midodrine 5mg tablet PO SCH ×3 (08:25→16:55)
[2020-01-02] MEDS: famotidine 20mg tablet PO SCH ×2 (08:25→20:00)
[2020-01-02 11:00] VITALS: BP 104/53
[2020-01-02 15:00] VITALS: BP 92/56
[2020-01-02 18:00] VITALS: BP 99/48
--- NOTE | 2020-01-02 18:30 | NUR ---
Patient in room PCU 3027. I have received report from Rosa MONTANO. and had the opportunity to ask questions and assume patient care.
--- NOTE | 2020-01-02 18:40 | NUR ---
Problems reprioritized. Patient report given, questions answered & plan of care reviewed with Shaun RN.
[2020-01-02] MEDS: insulin glargine (Lantus) pen - multi-dose SQ SCH (20:55)
[2020-01-02 23:00] VITALS: BP 100/60
--- NOTE | 2020-01-03 00:30 | NUR ---
pt rectal temperature 94.0F, pt placed on bear hugger.
--- NOTE | 2020-01-03 02:00 | NUR ---
PT REFUSED VS
[2020-01-03] MEDS: VANCOMYCIN LEVEL IV SCH (03:00)
[2020-01-03 04:04] LABS: ALANINE AMINOTRANSFERASE 115 U/L (12-78); ALBUMIN 1.3 G/DL (3.4-5.0); ALKALINE PHOSPHATASE 119 IU/L (46-116); BILIRUBIN,TOTAL 14.9 MG/DL (0.1-1.0); BLOOD UREA NITROGEN 33 MG/DL (7-18); CALCIUM 7.8 MG/DL (8.5-10.1); MAGNESIUM 1.8 MG/DL (1.5-2.4); TOTAL CARBON DIOXIDE 22.2 MMOL/L (24-32)
[2020-01-03 04:06] LABS: ALBUMIN/GLOBULIN RATIO 0.3 (1.1-1.5); TOTAL PROTEIN 5.8 G/DL (6.4-8.2)
[2020-01-03 04:08] LABS: BASOPHILS % (AUTO) 0.2 % (0-1); EOSINOPHILS # (AUTO) 0.1 X10'3 (0-0.9); EOSINOPHILS % (AUTO) 1.1 % (0-6); HEMATOCRIT 26.8 % (42.0-52.0); HEMOGLOBIN 8.4 g/dl (14.0-17.9); LYMPHOCYTES # (AUTO) 0.9 X10'3 (1.1-4.8); LYMPHOCYTES % (AUTO) 7.8 % (21-51); MEAN CORPUSCULAR HGB CONC 31.5 g/dL (33.0-36.5); MONOCYTES # (AUTO) 1.6 X10'3 (0-0.9); NEUTROPHILS # (AUTO) 9.4 X10'3 (1.8-7.7); NEUTROPHILS % (AUTO) 77.9 % (42-75); PLATELET COUNT 64 X10'3 (140-440); RED BLOOD COUNT 2.91 X10'6 (4.70-6.10); RED CELL DISTRIBUTION WIDTH 26.8 % (11.5-14.5); WHITE BLOOD COUNT 12.1 X10'3 (4.5-11.0)
[2020-01-03 04:20] LABS: ANION GAP 21 (8-16); BUN/CREATININE RATIO 7.8 (5.4-32.0); CHLORIDE 95 MMOL/L (99-107); CREATININE 4.24 MG/DL (0.60-1.10); PHOSPHORUS 6.6 MG/DL (2.3-4.5); POTASSIUM 4.1 MMOL/L (3.5-5.1); SODIUM 138 MMOL/L (135-145); eGFR 14 ML/MIN
[2020-01-03 04:28] LABS: GLUCOSE 7 MG/DL (70-104)
[2020-01-03 04:39] LABS: ASPARTATE AMINO TRANSFERASE 740 U/L (10-37)
[2020-01-03] MEDS ORDERED: Dextrose 10%-water 1000ml IV soln IV ONE (05:50)
[2020-01-03 06:30] VITALS: BP 105/70
--- NOTE | 2020-01-03 06:39 | NUR ---
Problems reprioritized. Patient report given, questions answered & plan of care reviewed with Em Mayer RN.
[2020-01-03] MEDS: sucralfate 1gm/10ml UD suspension PO SCH (07:00)
[2020-01-03] MEDS: dextrose 50%-water 50ml dispensing syringe IV PRN ×2 (07:24→09:39)
[2020-01-03] MEDS: lactobacillus rhamnosus 10,000 MMU CELLS/CAPSULE PO SCH (08:00)
[2020-01-03] MEDS: midodrine 5mg tablet PO SCH (08:00)
[2020-01-03] MEDS: folic acid 1mg tablet PO SCH (08:00)
[2020-01-03] MEDS: thiamine 100mg tablet PO SCH (08:00)
[2020-01-03] MEDS: NUT.TX.IMP.RENAL FXN,LAC-REDUC (Nepro) 237 ML VANILLA PO SCH (08:00)
[2020-01-03] MEDS: multivitamins, therapeutics tablet PO SCH (08:00)
[2020-01-03] MEDS: K, MAG and/or Phos replacement - Verify level? MC SCH (08:00)
[2020-01-03] MEDS: famotidine 20mg tablet PO SCH (08:00)
[2020-01-03] MEDS ORDERED: morphine 10mg/0.5ml (conc. morphine) oral syringe PO PRN (10:05)
[2020-01-03] MEDS ORDERED: LORazepam 2 mg/ml vial IV PRN (10:05)
[2020-01-03] MEDS ORDERED: acetaminophen 325mg tablet PO PRN (10:05)
[2020-01-03] MEDS: morphine 10mg/ml inj. IV PRN ×2 (10:23→12:18)
[2020-01-03] MEDS: sodium chloride inj. 154 MEQ in Dextrose 10%-water IV solution 961.5 ML IV SCH ×2 (10:30→11:53)
--- NOTE | 2020-01-03 15:04 | NUR ---
RN IS TO DOCUMENT YES TO ALL APPLICABLE AREAS Pronouncement of : 1504 1. Time Physician Notified: 1510 2. Date of : 01/03/2020 3. Time of : 1504 4. DNR/Withdraw life support documented: Yes 5. Monitor strip has been placed on chart:Yes 6. Assessment process is of one-minute duration and includes following criteria: a) Patient is unresponsive to all stimuli: yes b) Pupils fixed and non-reactive: yes c) Auscultation of precordium reveals absence of heart tones: yes d) Auscultation of lungs reveals absence of breath sounds: yes e) Absence of blood pressure / all vital signs: yes f) QRS complexes are not present on monitor / EKG strip: yes g) Pacer spikes without capture: 4. Comments: Family friend Veto Miguel notified of patient's passing (only contact we were able to reach and in [facility]) at 1515. Spoke with [facility] and they will be picking up body.
--- NOTE | 2020-01-03 16:31 | NUR ---
Upon patient's expiration, saw that he had the belongings tag for the safe downstairs. Brought tag to security and was able to retrieve the bag which contained his wallet (left security bag SEALED, did not open). Noted by myself and client architect, Aren, that security noted $110 in wallet upon it being taken down to security at time of patient's admission. Cards, money, and wallet remained sealed and not opened by hospital staff.
--- NOTE | 2020-01-03 17:15 | NUR ---
Patient picked up by [facility] at 1715. All belongings sent with patient. Copy of completed Expiration Memorandum placed in patient's chart. Nurse Pronouncement of template already completed, see note.
== END 2020-01-03 17:15 | disposition expired | DRG 720 ==
LOC: CICU 2S 01:18 → PCU 3S 12-27 12:06
PROVIDERS: ADMIT Internal Medicine Critical Care Medicine; ATTEND Internal Medicine Critical Care Medicine
PROC: 05HY33Z Insertion of Infusion Device into Upper Vein, Percutaneous Approach (ICD-10-PCS; 2019-12-23)
PROC: 30233R1 Transfusion of Nonautologous Platelets into Peripheral Vein, Percutaneous Approach (ICD-10-PCS; 2019-12-26)
PROC: 0JH63XZ Insertion of Tunneled Vascular Access Device into Chest Subcutaneous Tissue and Fascia, Percutaneous Approach (ICD-10-PCS; principal; 2019-12-28)
PROC: 02HV33Z Insertion of Infusion Device into Superior Vena Cava, Percutaneous Approach (ICD-10-PCS; 2019-12-28)
PROC: B5181ZA Fluoroscopy of Superior Vena Cava using Low Osmolar Contrast, Guidance (ICD-10-PCS; 2019-12-28)
PROC: 5A1D70Z Performance of Urinary Filtration, Intermittent, Less than 6 Hours Per Day (ICD-10-PCS; 2019-12-28)
PROC: 0JH63XZ Insertion of Tunneled Vascular Access Device into Chest Subcutaneous Tissue and Fascia, Percutaneous Approach (ICD-10-PCS; 2019-12-29)
PROC: 02H633Z Insertion of Infusion Device into Right Atrium, Percutaneous Approach (ICD-10-PCS; 2019-12-29)
PROC: B548ZZA Ultrasonography of Superior Vena Cava, Guidance (ICD-10-PCS; 2019-12-29)
PROC: 30233N1 Transfusion of Nonautologous Red Blood Cells into Peripheral Vein, Percutaneous Approach (ICD-10-PCS; 2019-12-29)
PROC: 5A1D70Z Performance of Urinary Filtration, Intermittent, Less than 6 Hours Per Day (ICD-10-PCS; 2019-12-29)
PROC: 5A1D70Z Performance of Urinary Filtration, Intermittent, Less than 6 Hours Per Day (ICD-10-PCS; 2019-12-31)
PROC: 5A1D70Z Performance of Urinary Filtration, Intermittent, Less than 6 Hours Per Day (ICD-10-PCS; 2020-01-02)
DX: A41.9 Sepsis, unspecified organism (principal); N17.9 Acute kidney failure, unspecified; D69.6 Thrombocytopenia, unspecified; K70.30 Alcoholic cirrhosis of liver without ascites; K72.90 Hepatic failure, unspecified without coma; B19.20 Unspecified viral hepatitis C without hepatic coma; F32.9 Major depressive disorder, single episode, unspecified; K21.9 Gastro-esophageal reflux disease without esophagitis; F17.210 Nicotine dependence, cigarettes, uncomplicated; N39.0 Urinary tract infection, site not specified; N18.2 Chronic kidney disease, stage 2 (mild); Z87.11 Personal history of peptic ulcer disease; Z90.81 Acquired absence of spleen; Z85.6 Personal history of leukemia; F10.20 Alcohol dependence, uncomplicated; D63.1 Anemia in chronic kidney disease; Z87.440 Personal history of urinary (tract) infections
CPT/HCPCS: 36415; 36430; 36558; 36573; 71045; 73090; 76937; 77001; 80053; 80202; 81001; 82140; 82728; 82948; 83036; 83540; 83550; 83605; 83735; 84100; 84145; 85025; 85027; 85610; 85730; 86704; 86706; 86870; 86885; 86900; 86901; 86902; 86905; 86920; 86922; 87077; 87081; 87088; 87186; 87340; 97110; 97112; 97161; 97530; A9270; C1750; C1769; C1894; G0378; J1644; J1815; J2060; J2150; J2250; J2270; J2543; J2597; J3010; J3370; J3411; J3480; J7030; J7050; J7131; P9016; P9035; P9047; Q4081